=== PATIENT | female | born 1935 | race Caucasian/White ===

== ENCOUNTER → 2017-05-15 | Outpatient (CLI) | payer MEDICAID, MEDICARE, OTHER ==
--- NOTE | 2017-05-15 11:13 | RADIOLOGY REPORT (SQ) ---
EXAM DESCRIPTION: CT HEAD WITHOUT COMPLETED DATE/TIME: 05/15/2017 10:59 am REASON FOR STUDY: DIZZINESS AND GIDDINESS, REPEATED FALLS R42 DIZZINESS AND GIDDINESS R29.6 REPEAT ED FALLS COMPARISON: 09/03/2010 TECHNIQUE: Axial images acquired through the brain without intravenous contrast. Images reviewed wi th bone, brain and subdural windows. Additional sagittal and coronal reconstructions were generated. Images stored on PACS. All CT scanners at this facility use dose modulation, iterative reconstruction, and/or weight based d osing when appropriate to reduce radiation dose to as low as reasonably achievable (ALARA). [facility]: Dose Right [facility]: CareDose [facility]: Dose Right [facility]: Teradose 4D [facility]: 3TEN8 RADIATION DOSE: CT Rad equipment meets quality standard of care and radiation dose reduction techniq ues were employed. CTDIvol: 49.0 mGy. DLP: 783 mGy-cm.mGy. LIMITATIONS: None. FINDINGS: VENTRICLES: Prominent. CEREBRUM: No masses. No hemorrhage. No midline shift. Areas of low density in the white matter mos t likely due to chronic micro-vascular ischemic change. No evidence for acute infarction. CEREBELLUM: No masses. No hemorrhage. No alteration of density. No evidence for acute infarction. EXTRAAXIAL SPACES: Age-related involutional change. No fluid collections. No masses. ORBITS AND GLOBE: No intra- or extraconal masses. Normal contour of globe without masses. CALVARIUM: No fracture. PARANASAL SINUSES: No fluid or mucosal thickening. SOFT TISSUES: No mass or hematoma. OTHER: No other significant finding. IMPRESSION: CHRONIC CHANGES OF ATROPHY AND MICROVASCULAR ISCHEMIA. NO ACUTE PROCESS. EVIDENCE OF ACUTE STROKE: NO. TECHNICAL DOCUMENTATION: JOB ID: [id number] Quality ID # [id number]: Final reports with documentation of one or more dose reduction techniques (e.g., Au tomated exposure control, adjustment of the mA and/or kV according to patient size, use of iterative reconstruction technique) 2010 [employer]- All Rights Reserved Reading location - IP/workstation name: [email or web address]
== END ==
LOC: RAD 10:24
PROVIDERS: ATTEND Family Medicine Geriatric Medicine
DX: R42 Dizziness and giddiness (principal); R29.6 Repeated falls
CPT/HCPCS: 70450

== ENCOUNTER → 2017-05-25 | Outpatient (CLI) | payer MEDICARE, MEDICAID ==
--- NOTE | 2017-05-25 15:44 | RADIOLOGY REPORT (SQ) ---
EXAM DESCRIPTION: CAROTID DOPPLER COMPLETED DATE/TIME: 05/25/2017 2:11 pm REASON FOR STUDY: DIZZINESS R42 DIZZINESS AND GIDDINESS R29.6 REPEATED FALLS COMPARISON: MRA neck 09/03/2010 MRI brain 09/03/2010 CT brain 05/15/2017 TECHNIQUE: Grayscale ultrasound, Doppler velocity and spectra, and color Doppler images acquired of the extra-cranial carotid and vertebral arteries. Images stored on PACS. LIMITATIONS: None. FINDINGS: RIGHT CAROTID CCA Velocities: Within normal limits. ICA Velocities Peak systolic 0.56 m/s. End diastolic 0.16 m/s. Proximal ICA/CCA peak systolic ratio 1.7. Spectra normal. Minimal plaque without flow significant stenosis. LEFT CAROTID CCA Velocities: Within normal limits. ICA Velocities Peak systolic 0.73 m/s. End diastolic 0.21 m/s. Proximal ICA/CCA peak systolic ratio 1.4. Spectra normal. Minimal plaque without flow significant stenosis VERTEBRAL ARTERIES: Antegrade flow. Normal waveforms. SUBCLAVIAN ARTERIES: Not evaluated OTHER: No other significant finding. IMPRESSION: NO HEMODYNAMICALLY SIGNIFICANT STENOSIS AT THE CAROTID BIFURCATIONS. ANTEGRADE PULSATIL E VERTEBRAL ARTERY FLOW BILATERALLY. COMMENT: Quality ID #[id number]: Velocity criteria are extrapolated from the diameter data as defined by t he Society of Radiologists in Ultrasound Consensus Conference. Radiology 2003: 229; 340-346. TECHNICAL DOCUMENTATION: JOB ID: [id number] [employer]- All Rights Reserved Reading location - IP/workstation name: [email or web address]
== END ==
LOC: SP 12:44
PROVIDERS: ATTEND Family Medicine Geriatric Medicine
DX: R42 Dizziness and giddiness (principal); R29.6 Repeated falls
CPT/HCPCS: 93880

== ENCOUNTER → 2017-05-26 | Outpatient (CLI) | payer MEDICARE, MEDICAID | LOC: LAB 10:48 | PROVIDERS: ATTEND Family Medicine Geriatric Medicine | DX: Z53.8 Procedure and treatment not carried out for other reasons (principal) ==

== ENCOUNTER → 2017-05-26 | Outpatient (CLI) | payer MEDICARE, MEDICAID ==
[2017-05-26 11:29] LABS: ABSOLUTE EOSINOPHILS # (AUTO) 0.3 10^3/uL (0.0-0.6); ABSOLUTE LYMPHOCYTES (AUTO) 1.7 10^3/uL (0.5-4.7); ABSOLUTE MONOCYTES (AUTO) 0.4 10^3/uL (0.1-1.4); ABSOLUTE NEUT (AUTO) 4.6 10^3/uL (1.7-8.2); BASOPHILS % (AUTO) 0.5 % (0-2); EOSINOPHILS % (AUTO) 3.7 % (0-6); HEMATOCRIT 32.4 % (36.0-47.0); HEMOGLOBIN 10.2 g/dL (12.0-15.5); LYMPHOCYTES % (AUTO) 24.3 % (13-45); MEAN CORPUSCULAR HEMOGLOBIN 25.5 pg (27.0-33.4); MEAN CORPUSCULAR HGB CONC 31.6 g/dL (32.0-36.0); MEAN CORPUSCULAR VOLUME 81 fl (80-97); MONOCYTES % (AUTO) 5.5 % (3-13); PLATELET COUNT 233 10^3/uL (150-450); RED BLOOD COUNT 4.02 10^6/uL (3.72-5.28); RED CELL DISTRIBUTION WIDTH 18.7 % (11.5-14.0); TOTAL CELLS COUNTED % (AUTO) 100 %; WHITE BLOOD COUNT 6.9 10^3/uL (4.0-10.5)
[2017-05-26 11:53] LABS: ALANINE AMINOTRANSFERASE 17 U/L (9-52); ALBUMIN 3.9 g/dL (3.5-5.0); ALKALINE PHOSPHATASE 67 U/L (38-126); ANION GAP 14 (5-19); ASPARTATE AMINO TRANSFERASE 12 U/L (14-36); BILIRUBIN,DIRECT 0.2 mg/dL (0.0-0.4); BILIRUBIN,TOTAL 0.5 mg/dL (0.2-1.3); BLOOD UREA NITROGEN 17 mg/dL (7-20); CALCIUM 9.9 mg/dL (8.4-10.2); CARBON DIOXIDE 26 mmol/L (22-30); CHLORIDE 104 mmol/L (98-107); CHOLESTEROL 121.02 mg/dL (0-200); GLUCOSE 155 mg/dL (75-110); POTASSIUM 4.2 mmol/L (3.6-5.0); TOTAL PROTEIN 6.4 g/dL (6.3-8.2); TRIGLYCERIDES 204 mg/dL (<150)
[2017-05-26 12:04] LABS: DIRECT LDL 52 mg/dL (<100)
[2017-05-26 12:42] LABS: VLDL CHOLESTEROL 40.8 mg/dL (10-31)
[2017-05-27 11:40] LABS: CREATININE URINE 53.1 mg/dL (Not Estab.); MICROALBUMIN URINE 45.9 ug/mL (Not Estab.)
== END ==
LOC: LAB 10:39
PROVIDERS: ATTEND Family Medicine Geriatric Medicine
DX: E11.9 Type 2 diabetes mellitus without complications (principal); I10 Essential (primary) hypertension; E87.6 Hypokalemia; E55.9 Vitamin D deficiency, unspecified; E53.8 Deficiency of other specified B group vitamins
CPT/HCPCS: 36415; 80053; 80061; 82043; 82306; 82570; 82607; 83036; 84443; 85025

== ENCOUNTER 2017-08-17 07:15 | Inpatient (IN) | payer MEDICARE, MEDICAID ==
--- NOTE | 2017-08-17 07:27 | ER Document Report ---
ED General - General Stated Complaint: ABDOMINAL PAIN Time Seen by Provider: 08/17/17 07:26 Mode of Arrival: Medic Information source: Patient, Relative TRAVEL OUTSIDE OF THE [place] IN LAST 30 DAYS: No - HPI Notes: 81-year-old female with a past medical history of double bypass, CHF, diabetes, COPD, hypertension, asthma, anxiety, A. fib, hypothyroidism presents to the ED with complaints of left lower quadrant abdominal pain that started this morning and daughter states 2 weeks of anorexia, fatigue, nausea, diarrhea with shortness of breath. Daughters concerned about patient's mental status she feels that she is becoming "delusional". Denies fevers, chills, chest pain, palpitations, hematuria,blurred vision, double vision, loss of vision, speech changes, LH, dizziness, syncope, headaches, wheezing, ST, URI, neck pain, weakness, bowel or bladder dysfunction, saddle anesthesia, numbness or tingling in bilateral upper or lower extremities equally, muscle paralysis, weakness in bilateral upper or lower extremities equally or rash. Denies IV drug use. - Related Data Allergies/Adverse Reactions: Penicillins Allergy (Verified 09/03/10 14:42) Past Medical History - General Information source: Patient, Relative - Social History Smoking Status: Unknown if Ever Smoked Family History: Reviewed & Not Pertinent Review of Systems - Review of Systems Constitutional: See HPI EENT: No symptoms reported Cardiovascular: No symptoms reported Respiratory: No symptoms reported Gastrointestinal: See HPI Genitourinary: No symptoms reported Female Genitourinary: No symptoms reported Musculoskeletal: No symptoms reported Skin: No symptoms reported Hematologic/Lymphatic: No symptoms reported Neurological/Psychological: No symptoms reported Physical Exam - Vital signs Vitals: Temp 97.6 F 08/17/17 07:33 - Notes Notes: PHYSICAL EXAMINATION: GENERAL: Well-appearing, well-nourished and in no acute distress. HEAD: Atraumatic, normocephalic. EYES: Pupils equal round and reactive to light, extraocular movements intact, conjunctiva are normal. ENT: Nares patent, oropharynx clear without exudates. Moist mucous membranes. NECK: Normal range of motion, supple without lymphadenopathy LUNGS: Breath sounds clear to auscultation bilaterally and equal. No wheezes rales or rhonchi. HEART: Regular rate and rhythm without murmurs ABDOMEN: Soft, left lower quadrant tenderness on palpation, no rebound tenderness, nondistended abdomen. No guarding, no rebound. No masses appreciated. No CVA tenderness bilaterally Female : deferred Musculoskeletal: Normal range of motion, no pitting or edema. No cyanosis. NEUROLOGICAL: Cranial nerves grossly intact. Normal speech, normal gait. Normal sensory, motor exams. PERRLA, EOMI. Full motor and sensory function throughout. General Duty Nurse + 2 equal bilaterally in BUE. Tongue midline. No pronator drift. No ataxia. Neck with APROM. Raises eyebrows. Strength is 5 out of 5 in bilateral upper and lower extremities equally.Speaks in full sentences. No weakness on one side. Romberg gait steady able to walk straight line. Able to recall 5 objects. PSYCH: Normal mood, normal affect. SKIN: Warm, Dry, normal turgor, no rashes or lesions noted. Course - Re-evaluation Re-evalutation: 08/17/17 09:44 Chronically ill 81-year-old female is afebrile, who is slightly tachycardic presents for complaints of left lower quadrant abdominal pain and daughter's concern of some confusion along with anorexia, fatigue and lethargy. CBC negative for leukocytosis however does show anemia, CMP unremarkable, BNP 7740 and urine shows a pyelonephritis. Cardiac enzymes negative. Still awaiting CTA CT abdomen pelvis Dr. Piyush Arevalo, hospitalist consulted at 0930 for admission for acute exacerbation of CHF as well as pyelonephritis. CTA negative for pneumonia, PE, dissecting aortic aneurysm, CTA pelvis shows nodular liver with trace left upper free fluid with questionable cirrhosis, noted diverticulosis no diverticulitis. Questions and concerns answered by this provider, patient comfortable with admission and agreed with plan of care. - Vital Signs Vital signs: Temp Pulse Resp BP Pulse Ox 97.6 F 22 H 165/78 H 94 08/17/17 07:33 08/17/17 08:01 08/17/17 08:01 08/17/17 08:01 - Laboratory Result Diagrams: 08/17/17 07:53 08/17/17 07:53 Laboratory results interpreted by me: 08/17/17 08/17/17 08/17/17 07:53 07:53 07:53 Hgb 9.8 L Hct 32.5 L MCV 76 L MCH 22.9 L MCHC 30.2 L RDW 18.7 H PT 27.2 H APTT 85.5 H Glucose 139 H Direct Bilirubin 0.5 H NT-Pro-B Natriuret Pep Urine Protein Urine Nitrite Ur Leukocyte Esterase 08/17/17 08/17/17 07:53 08:30 Hgb Hct MCV MCH MCHC RDW PT APTT Glucose Direct Bilirubin NT-Pro-B Natriuret Pep 7740 H Urine Protein 100 H Urine Nitrite POSITIVE H Ur Leukocyte Esterase MODERATE H Discharge - Discharge Clinical Impression: Nodular hyperplasia of liver Acute exacerbation of CHF (congestive heart failure) Qualifiers: Heart failure type: unspecified Qualified Code(s): I50.9 - Heart failure, unspecified UTI (urinary tract infection) Qualifiers: Urinary tract infection type: acute pyelonephritis Qualified Code(s): N10 - Acute pyelonephritis Condition: Stable Disposition: ADMITTED INPATIENT Admitting Provider: Hospitalist - Dr. Piyush Arevalo Unit Admitted: Medical Floor
[2017-08-17 08:10] LABS: ABSOLUTE BASOPHILS # (AUTO) 0.1 10^3/uL (0.0-0.2); ABSOLUTE EOSINOPHILS # (AUTO) 0.1 10^3/uL (0.0-0.6); ABSOLUTE LYMPHOCYTES (AUTO) 1.3 10^3/uL (0.5-4.7); ABSOLUTE MONOCYTES (AUTO) 0.5 10^3/uL (0.1-1.4); ABSOLUTE NEUT (AUTO) 5.5 10^3/uL (1.7-8.2); BASOPHILS % (AUTO) 0.9 % (0-2); EOSINOPHILS % (AUTO) 1.4 % (0-6); HEMATOCRIT 32.5 % (36.0-47.0); HEMOGLOBIN 9.8 g/dL (12.0-15.5); LYMPHOCYTES % (AUTO) 17.3 % (13-45); MEAN CORPUSCULAR HEMOGLOBIN 22.9 pg (27.0-33.4); MEAN CORPUSCULAR HGB CONC 30.2 g/dL (32.0-36.0); MEAN CORPUSCULAR VOLUME 76 fl (80-97); MONOCYTES % (AUTO) 6.3 % (3-13); PLATELET COUNT 234 10^3/uL (150-450); RED BLOOD COUNT 4.29 10^6/uL (3.72-5.28); RED CELL DISTRIBUTION WIDTH 18.7 % (11.5-14.0); SEGMENTED NEUTROPHILS % (AUTO) 74.1 % (42-78); TOTAL CELLS COUNTED % (AUTO) 100 %; WHITE BLOOD COUNT 7.3 10^3/uL (4.0-10.5)
[2017-08-17 08:16] LABS: INTERNATIONAL RATION (INR) 2.39; PROTHROMBIN TIME 27.2 SEC (11.4-15.4)
[2017-08-17 08:18] LABS: PARTIAL THROMBOPLASTIN TIME 85.5 SEC (23.5-35.8)
[2017-08-17 08:41] LABS: ALANINE AMINOTRANSFERASE 18 U/L (9-52); ALBUMIN 3.8 g/dL (3.5-5.0); ALKALINE PHOSPHATASE 103 U/L (38-126); ANION GAP 11 (5-19); ASPARTATE AMINO TRANSFERASE 22 U/L (14-36); BILIRUBIN,DIRECT 0.5 mg/dL (0.0-0.4); BILIRUBIN,TOTAL 0.6 mg/dL (0.2-1.3); BLOOD UREA NITROGEN 18 mg/dL (7-20); CALCIUM 9.3 mg/dL (8.4-10.2); CARBON DIOXIDE 26 mmol/L (22-30); CHLORIDE 107 mmol/L (98-107); CREATINE KINASE 51 U/L (30-135); GLUCOSE 139 mg/dL (75-110); SODIUM 144.3 mmol/L (137-145); TOTAL PROTEIN 6.5 g/dL (6.3-8.2)
[2017-08-17 08:44] LABS: CREATINE KINASE MB 0.76 ng/mL (<4.55); NT PRO BNP 7740 pg/mL (<450)
[2017-08-17 08:45] LABS: TROPONIN I < 0.012 ng/mL
[2017-08-17 09:21] LABS: APPEARANCE,URINE SLIGHTLY-CLOUDY; BILIRUBIN,URINE NEGATIVE (NEGATIVE); COLOR,URINE YELLOW; GLUCOSE, URINE NEGATIVE (NEGATIVE); KETONES,URINE NEGATIVE (NEGATIVE); LEUKOCYTE ESTERASE,URINE MODERATE (NEGATIVE); NITRITE,URINE POSITIVE (NEGATIVE); PROTEIN,URINE 100 mg/dL (NEGATIVE); URINE SPECIFIC GRAVITY 1.025; UROBILINOGEN,URINE NEGATIVE mg/dL (<2.0)
[2017-08-17] MEDS ORDERED: FUROSEMIDE INJ/PF 40 MG/4 ML SDV IV ONE (09:37)
[2017-08-17] MEDS ORDERED: CIPROFLOXACIN HCL 500 MG TABLET PO ONE (09:42)
--- NOTE | 2017-08-17 09:51 | RADIOLOGY REPORT (SQ) ---
EXAM DESCRIPTION: CTA CHEST; CTA ABDOMEN/PELVIS W WO COMPLETED DATE/TIME: 08/17/2017 9:21 am; 08/17/2017 9:20 am REASON FOR STUDY: HR 110, +SOB, wells 6, +perc; sudden LLQ abd pain, anorexia, +nausea, COMPARISON: None. CONTRAST TYPE AND DOSE: contrast/concentration: Isovue 370.00 mg/ml; Total Contrast Delivered: 58.0 ml; Total Saline Delivered: 60.0 ml RENAL FUNCTION: Creatinine 0.8 TECHNIQUE: CT angio of the chest performed using helical scanning technique with dynamic intravenous contrast injection. Images reviewed with lung, soft tissue and bone windows. Reconstructed coronal and sagittal MPR images reviewed. All images stored on PACS. CT angio of the abdomen and pelvis performed with intravenous and without oral contrastusing helical scanning technique with dynamic intravenous contrast injection. Images reviewed with lung, soft tiss ue and bone windows. Reconstructed coronal and sagittal MPR images reviewed. Delayed images for faby luation of the urinary system also acquired and evaluated. All images stored on PACS. All CT scanners at this facility use dose modulation, iterative reconstruction, and/or weight based d osing when appropriate to reduce radiation dose to as low as reasonably achievable (ALARA). [facility]: Dose Right [facility]: CareDose [facility]: Dose Right [facility]: Teradose 4D [facility]: [employer] RADIATION DOSE: CT Rad equipment meets quality standard of care and radiation dose reduction techniq ues were employed. CTDIvol: 19.3 - 25.5 mGy. DLP: 2328 mGy-cm. . LIMITATIONS: None. FINDINGS: CHEST: LUNGS AND PLEURA: No opacities, nodules, masses. No pneumothorax. No effusions. HILAR AND MEDIASTINAL STRUCTURES: No identified masses or abnormal nodes. HEART AND VASCULAR STRUCTURES: No thoracic aortic aneurysm or dissection. No acute pulmonary emboli. No pericardial effusion. Moderate to marked cardiomegaly. HARDWARE: Old sternotomy for CABG. THYROID AND OTHER SOFT TISSUES: No masses. No adenopathy. BONES: No significant finding. OTHER: No other significant finding. ABDOMEN AND PELVIS: LIVER: Nodular contour, atrophy right lobe liver nerve compatible with cirrhosis. No focal nodules. SPLEEN: Normal size. Trace left upper quadrant subphrenic fluid PANCREAS: No masses. No significant calcifications. No adjacent inflammation or peripancreatic fluid collections. Pancreatic duct not dilated. GALLBLADDER: Stones in the gallbladder without gallbladder wall thickening or pericholecystic fluid. ADRENAL GLANDS: No significant masses or asymmetry. RIGHT KIDNEY AND URETER: No solid masses. 4.5 cm cyst right mid-pole kidney No significant calcifica tion. No hydronephrosis or hydroureter. LEFT KIDNEY AND URETER: No solid masses. No significant calcification. No hydronephrosis or hydrouret er. AORTA AND VESSELS: No abdominal aortic aneurysm. No dissection. Very heavily calcified origins of th e superior mesenteric artery and bilateral renal arteries, at least moderate, 50 to 75% stenosis is p resent in these vessels. RETROPERITONEUM: No retroperitoneal adenopathy, hemorrhage or masses. BOWEL AND PERITONEAL CAVITY: Trace left upper quadrant free fluid. No free intraperitoneal air. No CT evidence of bowel obstruction. Descending and sigmoid colon diverticuli are present without CT si gns of acute diverticulitis. APPENDIX: Not identified. No right lower quadrant inflammatory change ABDOMINAL WALL: No masses. No hernias. PELVIS: Streak artifact from right total hip replacement. Trace pelvic cul-de-sac fluid. Small post menopausal female pelvic organs. Bladder unremarkable. BONES: Diffuse degenerative disc changes throughout the lumbar spine OTHER: There is soft tissue stranding and thickening of the skin over the inferior aspect, abdominal wall panniculus IMPRESSION: No CT angio evidence of thoracic or abdominal aortic dissection No CTA evidence of acute pulmonary emboli Colonic diverticulosis without CT signs of acute diverticulitis Nodular liver with trace left upper quadrant free fluid, question cirrhosis TECHNICAL DOCUMENTATION: JOB ID: [id number] Quality ID # [id number]: Final reports with documentation of one or more dose reduction techniques (e.g., Au tomated exposure control, adjustment of the mA and/or kV according to patient size, use of iterative reconstruction technique) 2010 [employer]- All Rights Reserved Reading location - IP/workstation name: [email or web address]
--- NOTE | 2017-08-17 10:47 | PDOC H&P ---
History of Present Illness Admission Date/PCP: 08/17/17 09:52 MARY BATISTA MD History of Present Illness: MOON RIDER is a 81 year old female patient with multiple comorbidities including CHF, A. fib, hypothyroidism, hypertension, hyperlipidemia, COPD, type 2 diabetes mellitus, and anxiety depression, obesity and coronary artery disease status post double CABG, presents with chief complaint of shortness of breath and left lower quadrant abdominal pain that started this morning and her daughter also complained patient has auditory hallucinations," she says she heard water dripping and birds singing". Patient denies fever, palpitation, diaphoresis, cough, chest pain, nausea, vomiting, diarrhea or urinary complaints. She has orthopnea of 3 pillows but denies paroxysmal nocturnal dyspnea. No dizziness, blurring of vision, headache or seizure activity. Past Medical History Cardiac Medical History: Reports: Atrial Fibrillation, Congestive Heart Failure , Hyperlipidema, Hypertension Pulmonary Medical History: Reports: Asthma, Chronic Obstructive Pulmonary Disease (COPD) Endocrine Medical History: Reports: Diabetes Mellitus Type 2 Psychiatric Medical History: Reports: Depression - anxiety Past Surgical History Past Surgical History: Reports: Cardiac Catheterization - double bipass, Other - Coronary artery bypass graft Social History Smoking Status: Never Smoker Frequency of Alcohol Use: None Hx Recreational Drug Use: No Drugs: None - Advance Directive Resuscitation Status: Full Code Family History Family History: Reviewed & Not Pertinent, DM Parental Family History Reviewed: Yes Children Family History Reviewed: Yes Sibling(s) Family History Reviewed.: Yes Medication/Allergy Allergies/Adverse Reactions: Penicillins Allergy (Verified 09/03/10 14:42) Review of Systems Constitutional: PRESENT: as per HPI Eyes: PRESENT: as per HPI Nose, Mouth, and Throat: PRESENT: as per HPI Cardiovascular: PRESENT: as per HPI Respiratory: PRESENT: as per HPI Gastrointestinal: PRESENT: as per HPI Neurological: PRESENT: as per HPI Psychiatric: PRESENT: as per HPI Physical Exam Vital Signs: Temp Pulse Resp BP Pulse Ox 97.6 F 22 H 165/78 H 94 08/17/17 07:33 08/17/17 08:01 08/17/17 08:01 08/17/17 08:01 General appearance: PRESENT: no acute distress Head exam: PRESENT: atraumatic, normocephalic Eye exam: PRESENT: conjunctiva pink Mouth exam: PRESENT: moist Neck exam: ABSENT: carotid bruit, JVD, lymphadenopathy, thyromegaly Respiratory exam: PRESENT: clear to auscultation molly. ABSENT: rales, rhonchi, wheezes Cardiovascular exam: PRESENT: irregular rhythm GI/Abdominal exam: PRESENT: other - Obese Extremities exam: PRESENT: +2 edema Neurological exam: PRESENT: alert, awake, oriented to time, oriented to situation Psychiatric exam: PRESENT: normal mood Results Impressions: Abdomen/Pelvis CTA 08/17/17 07:49 IMPRESSION: No CT angio evidence of thoracic or abdominal aortic dissection No CTA evidence of acute pulmonary emboli Colonic diverticulosis without CT signs of acute diverticulitis Nodular liver with trace left upper quadrant free fluid, question cirrhosis Chest/Abdomen CTA 08/17/17 07:49 IMPRESSION: No CT angio evidence of thoracic or abdominal aortic dissection No CTA evidence of acute pulmonary emboli Colonic diverticulosis without CT signs of acute diverticulitis Nodular liver with trace left upper quadrant free fluid, question cirrhosis Assessment & Plan - Diagnosis (1) Acute on chronic systolic congestive heart failure, NYHA class 2 Is this a current diagnosis for this admission?: Yes Plan: Patient has been started on Lasix, lisinopril, Coreg. (2) Complicated UTI (urinary tract infection) Is this a current diagnosis for this admission?: Yes Plan: Patient has been started on Levaquin. (3) COPD (chronic obstructive pulmonary disease) Qualifiers: Emphysema type: unspecified Is this a current diagnosis for this admission?: Yes Plan: His been started on as needed bronchodilator and supplemental oxygen. (4) Coronary artery disease Qualifiers: Coronary Disease-Associated Artery/Lesion type: [place] artery Is this a current diagnosis for this admission?: Yes Plan: Currently patient does not have chest pain. (5) A-fib Is this a current diagnosis for this admission?: Yes Plan: Rate controlled. We will continue her anticoagulation. (6) Type 2 diabetes mellitus Is this a current diagnosis for this admission?: Yes Plan: Started on sliding scale. (7) Hypothyroidism (acquired) Is this a current diagnosis for this admission?: Yes Plan: We will continue her Synthroid. - Time Time Spent: 30 to 50 Minutes - Inpatient Certification Medical Necessity: Need Close Monitoring Due to Risk of Patient Decompensation, Need for IV Antibiotics
[2017-08-17] MEDS ORDERED: DEXTROSE 50%-WATER 25 GM/50 ML DISP.SYRIN IV PRN ×2 (10:48)
[2017-08-17] MEDS ORDERED: DEXTROSE 40% GEL 15 GM TUBE PO PRN ×2 (10:48)
[2017-08-17] MEDS ORDERED: GLUCAGON,HUMAN RECOMB 1 MG INJ IM PRN (10:48)
[2017-08-17] MEDS ORDERED: IPRATROPIUM/ALBUTEROL 0.5-2.5 MG/3 ML AMPUL NEB PRN (10:51)
[2017-08-17] MEDS ORDERED: ENOXAPARIN SODIUM INJ 40 MG/0.4 ML DISP.SYRIN SUBCUT ONE (11:30)
[2017-08-17] MEDS: LEVOFLOXACIN 500 MG/D5W RTU 500 MG/100 ML RTUPB IV SCH (11:46)
[2017-08-17] MEDS: IPRATROPIUM/ALBUTEROL 0.5-2.5 MG/3 ML AMPUL NEB SCH ×2 (13:30→19:55)
--- NOTE | 2017-08-17 17:20 | Physician Advisory Note ---
Physician Advisor ProgressNote .: Pursuant to the plan for [facility], I have reviewed the medical record for this patient. Physician Advisor Statement: Nice documentation of Ac on Chr systolic CHF, w/orthopnea, SOB, BLE edema (w/ CT showing cardiomegaly), & of the evidence of acute changes in mental status (hallucinations , delusions per family, which aren't her baseline). Please consider documenting, if you agree: 1. Type AMS: - "delirium due to metabolic encephalopathy due to " [UTI, ...] ?, or - "metabolic encephalopathy due to " ?, or - dementia alone?, or ...? 2. Medical necessity (r.e. status): see below Status: CHF exac is typically "Obs until proven otherwise". So is encephalopathy - & UTI - because a significant # of those w/these dx.s can often turn around & be just fine for d/c the next day after initial tx. Please either (A) document explicitly the reasons you feel strongly that THIS pt at THIS time is severely ill & will require at least 2 nights in hospital, or (B) make pt Obs today, & then re-eval status 08/18. -> If on 08/18, pt not clinically safe for d/c home, but continues to have significant continuing severity of illness/intensity of service/ongoing needs, please then document continued concerns etc & consider Inpatient status. More info/explanation, to read when not overly busy: Ex of (B), day after arrival: persistent/recurrent tachycardia/tachypnea, SOB > baseline, mental status or breathing still not back to baseline, new worrisome s/s, ....). Ex of (A): A 300# pt w/CHF exac who shows up with edema to the umbilicus despite diuretics at home, whom you KNOW there is just no way they'll be able to get out sufficient urine for safe d/c in 1-2 days: that sort of case, w/ reasoning documented, can be appropriate for Inpt initially. Hx so far: Pt is 81yo w/CAD, chr syst CHF, chr Afib, COPD, asthma, DM-2, HTN, hypothyroidism, & anemia, acute UTI, nodular liver that could indicate cirrhosis. She remains persistently tachycardic today so far, w/continued intermittent tachypnea. INR is 2.39 on Pradaxa. Thanks! CK
[2017-08-17] MEDS: FUROSEMIDE INJ/PF 40 MG/4 ML SDV IV SCH (21:30)
[2017-08-17] MEDS: CARVEDILOL 12.5 MG TABLET PO SCH (21:30)
[2017-08-18] MEDS: IPRATROPIUM/ALBUTEROL 0.5-2.5 MG/3 ML AMPUL NEB SCH ×4 (01:32→19:42)
[2017-08-18] MEDS: LANSOPRAZOLE 30 MG TAB.RAP.DR PO SCH (05:34)
[2017-08-18 07:52] LABS: ANION GAP 14 (5-19); BLOOD UREA NITROGEN 15 mg/dL (7-20); CALCIUM 9.5 mg/dL (8.4-10.2); CARBON DIOXIDE 27 mmol/L (22-30); CHLORIDE 102 mmol/L (98-107); GLUCOSE 116 mg/dL (75-110); SODIUM 143.4 mmol/L (137-145)
[2017-08-18] MEDS: CARVEDILOL 12.5 MG TABLET PO SCH ×2 (09:40→23:37)
[2017-08-18] MEDS: FUROSEMIDE INJ/PF 40 MG/4 ML SDV IV SCH ×2 (09:40→23:35)
[2017-08-18] MEDS ORDERED: ENOXAPARIN SODIUM INJ 40 MG/0.4 ML DISP.SYRIN SUBCUT SCH (10:00)
[2017-08-18] MEDS ORDERED: LISINOPRIL 5 MG TABLET PO SCH (10:00)
[2017-08-18] MEDS: LEVOFLOXACIN 500 MG/D5W RTU 500 MG/100 ML RTUPB IV SCH (11:32)
[2017-08-18] MEDS: INSULIN LISPRO 100 UNIT/ML 3 ML VIAL SUBCUT PRN ×2 (11:32→16:26)
--- NOTE | 2017-08-18 14:33 | PDOC PROGRESS REPORT ---
Subjective Progress Note for:: 08/18/17 Subjective:: I seen patient sitting up by the bedside. She is awake alert oriented. She claims her shortness of breath relatively subsided but she complains of dysphagia. I requested barium swallow. Patient is also eager to go home since coming Wednesday his birthday of her granddaughter. Reason For Visit: HEART FAILURE Physical Exam Vital Signs: Temp Pulse Resp BP Pulse Ox 98.4 F 98 16 150/89 H 99 08/18/17 07:50 08/18/17 14:05 08/18/17 14:05 08/18/17 07:50 08/18/17 14:05 Intake & Output 08/17/17 08/18/17 08/19/17 06:59 06:59 06:59 Intake Total 330 Balance 330 Weight 77.4 kg General appearance: PRESENT: mild distress Head exam: PRESENT: atraumatic Eye exam: PRESENT: conjunctiva pink Mouth exam: PRESENT: moist Neck exam: ABSENT: carotid bruit, JVD, lymphadenopathy, thyromegaly Respiratory exam: PRESENT: clear to auscultation molly, decreased breath sounds. ABSENT: rales, rhonchi, wheezes Cardiovascular exam: PRESENT: RRR. ABSENT: diastolic murmur, rubs, systolic murmur GI/Abdominal exam: PRESENT: normal bowel sounds, soft. ABSENT: distended, guarding, mass, organolmegaly, rebound, tenderness Neurological exam: PRESENT: alert, awake, oriented to time, oriented to situation Results Laboratory Results: 08/18/17 06:10 08/18/17 08/18/17 06:10 06:10 Sodium 143.4 Potassium 4.0 D Chloride 102 Carbon Dioxide 27 Anion Gap 14 BUN 15 Creatinine 0.70 Est GFR ( Amer) > 60 Est GFR (Non-Af Amer) > 60 Glucose 116 H Calcium 9.5 Magnesium 1.9 TSH 1.05 Impressions: Abdomen/Pelvis CTA 08/17/17 07:49 IMPRESSION: No CT angio evidence of thoracic or abdominal aortic dissection No CTA evidence of acute pulmonary emboli Colonic diverticulosis without CT signs of acute diverticulitis Nodular liver with trace left upper quadrant free fluid, question cirrhosis Chest/Abdomen CTA 08/17/17 07:49 IMPRESSION: No CT angio evidence of thoracic or abdominal aortic dissection No CTA evidence of acute pulmonary emboli Colonic diverticulosis without CT signs of acute diverticulitis Nodular liver with trace left upper quadrant free fluid, question cirrhosis Assessment & Plan - Diagnosis (1) Acute on chronic systolic congestive heart failure, NYHA class 2 Is this a current diagnosis for this admission?: Yes Plan: At admission patient has bilateral pitting edema, orthopnea of 3 pillows and her BNP is 7700. I will continue Lasix lisinopril and Coreg. (2) Complicated UTI (urinary tract infection) Is this a current diagnosis for this admission?: Yes Plan: Patient has been started on Levaquin. Since she has allergic to penicillin. (3) COPD (chronic obstructive pulmonary disease) Qualifiers: Emphysema type: unspecified Is this a current diagnosis for this admission?: Yes Plan: His been started on as needed bronchodilator and supplemental oxygen. (4) Coronary artery disease Qualifiers: Coronary Disease-Associated Artery/Lesion type: [place] artery Is this a current diagnosis for this admission?: Yes Plan: Currently patient does not have chest pain. (5) A-fib Is this a current diagnosis for this admission?: Yes Plan: Rate controlled. We will continue her anticoagulation. (6) Type 2 diabetes mellitus Is this a current diagnosis for this admission?: Yes Plan: Started on sliding scale. (7) Hypothyroidism (acquired) Is this a current diagnosis for this admission?: Yes Plan: We will continue her Synthroid.
[2017-08-18] MEDS ORDERED: TRAMADOL HCL 50 MG TABLET PO PRN (14:34)
[2017-08-18] MEDS ORDERED: (PENDING PHARMACY ID) (Carboxymethylcellulose Sodium [Refresh Tears] 1 DROP) OU PRN (14:34)
[2017-08-18] MEDS ORDERED: (PENDING PHARMACY ID) (Ondansetron Hcl [Zofran 4 Mg Tablet] 4 MG) PO PRN (14:34)
[2017-08-18] MEDS ORDERED: ONDANSETRON 4 MG TAB.RAPDIS PO PRN (15:39)
[2017-08-18] MEDS ORDERED: CARBOXYMETHYLCELLULOSE SOD 0.5% 0.4 ML DROPERETTE OU PRN (15:39)
[2017-08-18] MEDS ORDERED: SERTRALINE HCL 50 MG TABLET PO ONE (15:45)
[2017-08-18] MEDS ORDERED: POTASSIUM CHLORIDE 10 MEQ CAPSULE.ER PO ONE (16:00)
[2017-08-18] MEDS: METFORMIN HCL 500 MG TABLET PO SCH (16:23)
[2017-08-18] MEDS ORDERED: METOPROLOL TARTRATE 50 MG TABLET PO SCH (22:00)
[2017-08-18] MEDS: DABIGATRAN ETEXILATE 150 MG CAPSULE PO SCH (23:37)
[2017-08-18] MEDS: ATORVASTATIN CALCIUM 10 MG TABLET PO SCH (23:39)
[2017-08-18] MEDS: BIMATOPROST 0.01% OPH SOLN 2.5 ML/BOTTLE OU SCH (23:40)
[2017-08-19] MEDS: IPRATROPIUM/ALBUTEROL 0.5-2.5 MG/3 ML AMPUL NEB SCH ×4 (02:14→19:49)
[2017-08-19] MEDS: LANSOPRAZOLE 30 MG TAB.RAP.DR PO SCH (06:41)
[2017-08-19] MEDS: INSULIN LISPRO 100 UNIT/ML 3 ML VIAL SUBCUT PRN ×3 (06:41→12:41)
[2017-08-19] MEDS: LEVOTHYROXINE SODIUM 0.05 MG TABLET PO SCH (06:41)
[2017-08-19] MEDS: METFORMIN HCL 500 MG TABLET PO SCH ×2 (08:00→16:17)
[2017-08-19] MEDS: FUROSEMIDE 40 MG TABLET PO SCH (09:04)
[2017-08-19] MEDS: SERTRALINE HCL 50 MG TABLET PO SCH (09:04)
[2017-08-19] MEDS: POTASSIUM CHLORIDE 10 MEQ CAPSULE.ER PO SCH (09:04)
[2017-08-19] MEDS: LISINOPRIL 10 MG TABLET PO SCH (09:05)
[2017-08-19] MEDS: CARVEDILOL 12.5 MG TABLET PO SCH ×2 (09:05→22:00)
[2017-08-19] MEDS: ASPIRIN 81 MG TABLET, ENT COATED PO SCH (09:05)
[2017-08-19] MEDS: TIOTROPIUM BROMIDE DPI 5 CAP/KIT (18 MCG/CAP) IH SCH (09:06)
[2017-08-19] MEDS: INSULIN GLARGINE,HUM.REC.ANLOG 300 UNIT/3 ML INSULN.PEN SUBCUT SCH (09:12)
[2017-08-19] MEDS: DABIGATRAN ETEXILATE 150 MG CAPSULE PO SCH ×2 (09:13→22:00)
[2017-08-19] MEDS: FUROSEMIDE INJ/PF 40 MG/4 ML SDV IV SCH ×2 (09:19→21:48)
--- NOTE | 2017-08-19 09:22 | RADIOLOGY REPORT (SQ) ---
EXAM DESCRIPTION: BARIUM SWALLOW ESOPHAGUS COMPLETED DATE/TIME: 08/19/2017 8:52 am REASON FOR STUDY: Dysphagia COMPARISON: CT angio chest 08/17/2017 TECHNIQUE: Under fluoroscopic guidance, patient ingested effervescent granules followed by thick and thin barium. Fluoroscopic spot images and routine radiographic images acquired and stored on PACS. 12 MM BARIUM TABLET GIVEN: Yes 12 mm barium tablet tongue up at the GE junction for 2 minutes before dropping through into the stoma ch fundus. This reproduced the patient's symptoms. LIMITATIONS: None. FLUOROSCOPY TIME: FLUORO TIME: 2 minutes 19 series of digital images saved to PACS. FINDINGS: NEUROMUSCULAR COORDINATION OF SWALLOW: Normal. No aspiration. ESOPHAGEAL MOTILITY: Prominent tertiary contractions of the esophagus. Disorganized primary strippin g wave ESOPHAGEAL MUCOSA: Normal mucosa without masses or ulceration. However, there is mild distal esophag eal luminal narrowing just above a small hiatal hernia. GASTRO-ESOPHAGEAL JUNCTION: Tiny sliding hiatal hernia. Unprovoked gastroesophageal reflux to the ce rvical esophagus NON-GI TRACT STRUCTURES: Old sternotomy for CABG OTHER: No other significant finding. IMPRESSION: Disorganized peristalsis with prominent tertiary contractions Small hiatal hernia with unprovoked gastroesophageal reflux to the cervical esophagus Smooth short segment of distal esophageal narrowing, impedes passage of the 12 mm barium tablet for 2 minutes. This reproduced the patient's symptoms. COMMENT: Quality ID [id number]: Final reports for procedures using fluoroscopy that document radiation exp osure indices, or exposure time and number of fluorographic images (if radiation exposure indices are not available) TECHNICAL DOCUMENTATION: JOB ID: [id number] [employer]- All Rights Reserved Reading location - IP/workstation name: [email or web address]
[2017-08-19] MEDS ORDERED: (PENDING PHARMACY ID) (Potassium Chloride [Klor-Con M20] 20 MEQ) PO SCH (10:00)
[2017-08-19] MEDS ORDERED: (PENDING PHARMACY ID) (Pravastatin Sodium [Pravachol] 40 MG) PO SCH (10:00)
--- NOTE | 2017-08-19 10:38 | PDOC PROGRESS REPORT ---
Subjective Progress Note for:: 08/19/17 Subjective:: I seen patient sitting up by the bedside. She is awake alert and oriented. She is not in pain or distress. For her dysphagia yesterday I requested a barium swallow and it was reported that she has smooth short segment of distal esophageal narrowing. For the dysphagia I offered her evaluation by boston cutter but she declined. Her blood culture grew gram-positive cocci. Identification and sensitivities pending. Her urine cultures positive for E. coli which is pansensitive and patient is already on Levaquin. Reason For Visit: HEART FAILURE Physical Exam Vital Signs: Temp Pulse Resp BP Pulse Ox 98.9 F 94 21 H 133/79 H 95 08/19/17 08:20 08/19/17 08:20 08/19/17 08:20 08/19/17 08:20 08/19/17 08:20 Intake & Output 08/18/17 08/19/17 08/20/17 06:59 06:59 06:59 Intake Total 330 1179 Balance 330 1179 Weight 77.4 kg 77.7 kg Results Laboratory Results: 08/18/17 06:10 Impressions: Abdomen/Pelvis CTA 08/17/17 07:49 IMPRESSION: No CT angio evidence of thoracic or abdominal aortic dissection No CTA evidence of acute pulmonary emboli Colonic diverticulosis without CT signs of acute diverticulitis Nodular liver with trace left upper quadrant free fluid, question cirrhosis Chest/Abdomen CTA 08/17/17 07:49 IMPRESSION: No CT angio evidence of thoracic or abdominal aortic dissection No CTA evidence of acute pulmonary emboli Colonic diverticulosis without CT signs of acute diverticulitis Nodular liver with trace left upper quadrant free fluid, question cirrhosis Esophagus X-Ray 08/19/17 00:00 IMPRESSION: Disorganized peristalsis with prominent tertiary contractions Small hiatal hernia with unprovoked gastroesophageal reflux to the cervical esophagus Smooth short segment of distal esophageal narrowing, impedes passage of the 12 mm barium tablet for 2 minutes. This reproduced the patient's symptoms. Assessment & Plan - Diagnosis (1) Acute on chronic systolic congestive heart failure, NYHA class 2 Is this a current diagnosis for this admission?: Yes Plan: Her shortness of breath is improving (2) Complicated UTI (urinary tract infection) Is this a current diagnosis for this admission?: Yes Plan: Urine culture is positive for E. coli which is pansensitive and patient is already on Levaquin. (3) COPD (chronic obstructive pulmonary disease) Qualifiers: Emphysema type: unspecified Is this a current diagnosis for this admission?: Yes Plan: Continue current regimen (4) Coronary artery disease Qualifiers: Coronary Disease-Associated Artery/Lesion type: hoh artery Is this a current diagnosis for this admission?: Yes Plan: Currently patient does not have chest pain. (5) A-fib Is this a current diagnosis for this admission?: Yes Plan: Rate controlled. We will continue her anticoagulation. (6) Type 2 diabetes mellitus Is this a current diagnosis for this admission?: Yes Plan: Started on sliding scale. (7) Hypothyroidism (acquired) Is this a current diagnosis for this admission?: Yes Plan: We will continue her Synthroid.
[2017-08-19] MEDS: LEVOFLOXACIN 500 MG/D5W RTU 500 MG/100 ML RTUPB IV SCH (12:27)
[2017-08-19] MEDS: ATORVASTATIN CALCIUM 10 MG TABLET PO SCH (22:00)
[2017-08-19] MEDS: BIMATOPROST 0.01% OPH SOLN 2.5 ML/BOTTLE OU SCH (22:00)
[2017-08-19] MEDS: ACETAMINOPHEN 325 MG TABLET PO PRN (22:15)
[2017-08-20] MEDS: IPRATROPIUM/ALBUTEROL 0.5-2.5 MG/3 ML AMPUL NEB SCH ×2 (02:13→08:29)
[2017-08-20] MEDS: LEVOTHYROXINE SODIUM 0.05 MG TABLET PO SCH (05:35)
[2017-08-20] MEDS: LANSOPRAZOLE 30 MG TAB.RAP.DR PO SCH (05:35)
[2017-08-20] MEDS: ACETAMINOPHEN 325 MG TABLET PO PRN (05:36)
[2017-08-20] MEDS: METFORMIN HCL 500 MG TABLET PO SCH (09:29)
--- NOTE | 2017-08-20 10:16 | PDOC DISCHARGE SUMMARY ---
General - Admit/Disc Date/PCP Admission Date/Primary Care Provider: 08/17/17 09:52 MARY BATISTA MD Discharge Date: 08/20/17 - Discharge Diagnosis (1) Acute on chronic systolic congestive heart failure, NYHA class 2 Is this a current diagnosis for this admission?: Yes (2) Complicated UTI (urinary tract infection) Is this a current diagnosis for this admission?: Yes (3) COPD (chronic obstructive pulmonary disease) Is this a current diagnosis for this admission?: Yes (4) Coronary artery disease Is this a current diagnosis for this admission?: Yes (5) A-fib Is this a current diagnosis for this admission?: Yes (6) Type 2 diabetes mellitus Is this a current diagnosis for this admission?: Yes (7) Hypothyroidism (acquired) Is this a current diagnosis for this admission?: Yes - Additional Information Resuscitation Status: Full Code Discharge Diet: Diabetic Discharge Activity: Activity As Tolerated, Balance Activity w/Rest Prescriptions: Carvedilol [Coreg 12.5 mg Tablet] 12.5 mg PO Q12 #60 tablet Levofloxacin [Levaquin 250 mg Tablet] 250 mg PO DAILY #4 tablet Home Medications: Albuterol Sulfate [Proair HFA Inhalation Aerosol 8.5 gm MDI] 2 puff IH Q6HP PRN 08/17/17 Aspirin [Ecotrin 81 mg EC Tablet] 81 mg PO DAILY 08/17/17 Bimatoprost [Lumigan 0.01% Oph Soln 2.5 ml/Bottle] 1 drop OU QHS 08/17/17 Carboxymethylcellulose Sodium [Refresh Tears] 1 drop OU DAILYP PRN 08/17/17 Dabigatran Etexilate Mesylate [Pradaxa] 150 mg PO Q12 08/17/17 Ergocalciferol (Vitamin D2) [Drisdol 50,000 unit (1.25MG) Capsule] 50,000 unit PO CLARK@1000 08/17/17 Esomeprazole Magnesium [Nexium] 40 mg PO DAILY 08/17/17 Furosemide [Lasix 40 mg Tablet] 40 mg PO DAILY 08/17/17 Insulin Glargine,Hum.rec.anlog [Lantus Insulin 100 Unit/mL] 40 units SQ DAILY Levothyroxine Sodium [Synthroid 0.05 mg Tablet] 0.05 mg PO Q6AM 08/17/17 Lisinopril [Prinivil 10 mg Tablet] 10 mg PO DAILY 08/17/17 Magnesium Oxide [Mag-Ox 400 mg Tablet] 400 mg PO Q12 08/17/17 Metformin HCl [Glucophage] 1,000 mg PO BIDBS 08/17/17 Ondansetron HCl [Zofran 4 mg Tablet] 4 mg PO Q8HP PRN 08/17/17 Potassium Chloride [Klor-Con M20] 20 meq PO DAILY 08/17/17 Pravastatin Sodium [Pravachol] 40 mg PO DAILY 08/17/17 Sertraline HCl [Zoloft] 100 mg PO DAILY 08/17/17 Tiotropium [place] [Spiriva Handihaler 5 Cap/Kit (18 Mcg/Cap)] 1 puff IH DAILY 08/17/17 Tramadol HCl [Ultram 50 mg Tablet] 50 mg PO Q8HP PRN 08/17/17 Carvedilol [Coreg 12.5 mg Tablet] 12.5 mg PO Q12 #60 tablet 08/19/17 Levofloxacin [Levaquin 250 mg Tablet] 250 mg PO DAILY #4 tablet 08/20/17 History of Present Illness History of Present Illness: MOON RIDER is a 81 year old female patient with multiple comorbidities including CHF, A. fib, hypothyroidism, hypertension, hyperlipidemia, COPD, type 2 diabetes mellitus, and anxiety depression, obesity and coronary artery disease status post double CABG, presents with chief complaint of shortness of breath and left lower quadrant abdominal pain that started this morning and her daughter also complained patient has auditory hallucinations," she says she heard water dripping and birds singing". Patient denies fever, palpitation, diaphoresis, cough, chest pain, nausea, vomiting, diarrhea or urinary complaints. She has orthopnea of 3 pillows but denies paroxysmal nocturnal dyspnea. No dizziness, blurring of vision, headache or seizure activity. Hospital Course Hospital Course: This is 81 years old female patient admitted with chief complaint of shortness of breath secondary to acute on chronic congestive heart failure exacerbation. Patient has been managed with IV Lasix and also will continue her home cardioprotective medications including lisinopril and carvedilol. Patient also has been on supplemental oxygen. Her urine culture grew E. coli and for which patient has been managed with Levaquin since she is allergic to penicillin. Patient also has been complaining of dysphagia for which barium swallow was requested and it revealed narrowing in the distal portion of the esophagus and I offered her evaluation by law secretary but she declined. Otherwise her hospital course is smooth and uneventful. This morning I seen patient sitting up in bed, awake alert oriented. She is not in pain or distress. Her labs are within normal limits. I will discharge patient in stable condition. I will continue all her home medication and I will add for her Levaquin 250 mg p.o. daily for 4 days. Physical Exam Vital Signs: Temp Pulse Resp BP Pulse Ox 99.2 F 92 18 124/57 L 97 08/20/17 08:00 08/20/17 08:00 08/20/17 08:00 08/20/17 08:00 08/20/17 08:00 Intake & Output 08/19/17 08/20/17 08/21/17 06:59 06:59 06:59 Intake Total 1179 1166 Balance 1179 1166 Weight 77.7 kg 77.9 kg General appearance: PRESENT: no acute distress Head exam: PRESENT: atraumatic, normocephalic Eye exam: PRESENT: conjunctiva pink Mouth exam: PRESENT: moist Neck exam: ABSENT: carotid bruit, JVD, lymphadenopathy, thyromegaly Respiratory exam: PRESENT: clear to auscultation molly. ABSENT: rales, rhonchi, wheezes Cardiovascular exam: PRESENT: RRR. ABSENT: diastolic murmur, rubs, systolic murmur GI/Abdominal exam: PRESENT: normal bowel sounds, soft. ABSENT: distended, guarding, mass, organolmegaly, rebound, tenderness Neurological exam: PRESENT: alert, awake Psychiatric exam: PRESENT: normal mood Results Laboratory Results: 08/18/17 06:10 Impressions: Abdomen/Pelvis CTA 08/17/17 07:49 IMPRESSION: No CT angio evidence of thoracic or abdominal aortic dissection No CTA evidence of acute pulmonary emboli Colonic diverticulosis without CT signs of acute diverticulitis Nodular liver with trace left upper quadrant free fluid, question cirrhosis Chest/Abdomen CTA 08/17/17 07:49 IMPRESSION: No CT angio evidence of thoracic or abdominal aortic dissection No CTA evidence of acute pulmonary emboli Colonic diverticulosis without CT signs of acute diverticulitis Nodular liver with trace left upper quadrant free fluid, question cirrhosis Esophagus X-Ray 08/19/17 00:00 IMPRESSION: Disorganized peristalsis with prominent tertiary contractions Small hiatal hernia with unprovoked gastroesophageal reflux to the cervical esophagus Smooth short segment of distal esophageal narrowing, impedes passage of the 12 mm barium tablet for 2 minutes. This reproduced the patient's symptoms. Qualifiers - * PATIENT BEING DISCHARGED WITH ANY OF THE FOLLOWING DIAGNOSIS: Heart Failure VTE patient discharged on overlapping Therapy?: No Reason(s) for not prescribing Overlap Therapy:: Contraindicated Stroke Pt being discharged on Anti-thrombolytic therapy?: No Reason(s) for not prescribing Anti-thrombolytic therapy:: Contraindicated Stroke Pt being discharged on Anti-coagulation therapy?: No Reason(s) for not prescribing Anti-coagulation therapy:: Not indicated Stroke Pt being discharged on Statins?: No Reason(s) for not prescribing Statins therapy:: Not indicated OR Pt being discharged on Aspirin therapy?: No Reason(s) for not prescribing Aspirin therapy:: Not indicated OR Pt being discharged on Statins?: No Reason(s) for not prescribing Statin therapy:: Not indicated OR Pt discharged ACEI/ARBS?: No Reason(s) for not prescribing ACEI/ARBS:: Not indicated HF Pt being discharged on ACEI for LVEF less than 40%?: Yes HF Pt being discharged on ARBS for LVEF less than 40%?: No Reason(s) for not prescribing ARBS:: Not indicated HF Pt with Afib discharged with Warfarin?: No Reason(s) for not prescribing Warfarin:: Not indicated HF Pt discharged on evidence-based Beta Yoel:: Yes
[2017-08-20] MEDS: TIOTROPIUM BROMIDE DPI 5 CAP/KIT (18 MCG/CAP) IH SCH (10:39)
[2017-08-20] MEDS: POTASSIUM CHLORIDE 10 MEQ CAPSULE.ER PO SCH (10:42)
[2017-08-20] MEDS: CARVEDILOL 12.5 MG TABLET PO SCH (10:42)
[2017-08-20] MEDS: ASPIRIN 81 MG TABLET, ENT COATED PO SCH (10:42)
[2017-08-20] MEDS: SERTRALINE HCL 50 MG TABLET PO SCH (10:42)
[2017-08-20] MEDS: LISINOPRIL 10 MG TABLET PO SCH (10:42)
[2017-08-20] MEDS: DABIGATRAN ETEXILATE 150 MG CAPSULE PO SCH (10:43)
[2017-08-20] MEDS: FUROSEMIDE INJ/PF 40 MG/4 ML SDV IV SCH (10:51)
[2017-08-20] MEDS: INSULIN GLARGINE,HUM.REC.ANLOG 300 UNIT/3 ML INSULN.PEN SUBCUT SCH (10:51)
[2017-08-20] MEDS: FUROSEMIDE 40 MG TABLET PO SCH (10:51)
[2017-08-20 10:58] VITALS: BP 137/87
--- NOTE | 2017-08-20 20:03 | XCELERA REPORT ---
[address] [address] Transthoracic Echocardiogram Report Name: MOON RIDER Age: 81 yrs Gender: Female : 1935 Patient Status: Inpatient Patient Location: [address] [place] [address] Study Date: 08/19/2017 03:28 PM Procedure: A two-dimensional transthoracic echocardiogram with color flow and Doppler was performed. The study was technically difficult with many images being suboptimal in quality. Reason For Study: CHF History: CHF. Ordering Physician: OLIVA CRUZ Performed By: Su Del Real Interpretation Summary The left ventricle is mildly dilated. There is normal left ventricular wall thickness. LV EF is 35% to 40% Left ventricular systolic function is moderately reduced. Doppler measurements suggest impaired left ventricular relaxation, which is associated with grade I/IV or mild diastolic dysfunction There is moderate global hypokinesis of the left ventricle. The right ventricle is not well visualized secondary to technical limitations There is no evidence of mitral valve prolapse. There is no mitral valve stenosis. There is no mitral regurgitation noted. There is no aortic valve stenosis There is no LVOT obstruction. No aortic regurgitation is present. There is no tricuspid stenosis. There is a moderate amount of tricuspid regurgitation There is mild pulmonary hypertension by echo RVSP is 45 mm of Hg , with RA mean of 10. The left atrium is mildly dilated. There is no pericardial effusion. MMode/2D Measurements & Calculations RVDd: 3.6 cm LVIDd: 5.9 cm FS: 17.0 % LVOT diam: 1.4 cm IVSd: 0.82 cm LVIDs: 4.9 cm EDV(Teich): 173.2 ml LVOT area: 1.6 cm2 LVPWd: 0.97 cm ESV(Teich): 112.7 ml EF(Teich): 34.9 % Doppler Measurements & Calculations MV E max rubens: MV dec slope: Ao V2 max: LV V1 max P.3 cm/sec 447.9 cm/sec2 146.1 cm/sec 1.9 mmHg MV A max rubens: MV dec time: Ao max PG: LV V1 max: 0.99 cm/sec 0.20 sec 8.5 mmHg 68.7 cm/sec MV E/A: 92.5 DEEJAY(V,D): 0.75 cm2 TR max rubens: 297.0 cm/sec TR max P.5 mmHg Left Ventricle The left ventricle is mildly dilated. There is normal left ventricular wall thickness. LV EF is 35% to 40%. Left ventricular systolic function is moderately reduced. Doppler measurements suggest impaired left ventricular relaxation, which is associated with grade I/IV or mild diastolic dysfunction. There is moderate global hypokinesis of the left ventricle. There is no thrombus. Right Ventricle The right ventricle is not well visualized secondary to technical limitations. Atria Right atrium not well visualized secondary to technical limitations. The right atrium is mildly dilated. The left atrium is mildly dilated. Mitral Valve There is no evidence of mitral valve prolapse. There is no vegetation seen on the mitral valve. There is no mitral valve stenosis. There is no mitral regurgitation noted. Aortic Valve There is no aortic valvular vegetation. There is no aortic valve stenosis. There is no LVOT obstruction. No aortic regurgitation is present. Tricuspid Valve There is no tricuspid stenosis. There is a moderate amount of tricuspid regurgitation. There is mild pulmonary hypertension by echo. RVSP is 45 mm of Hg , with RA mean of 10. Pulmonic Valve There is no pulmonic valvular stenosis. There is no pulmonic valvular regurgitation. Great Vessels The aortic root is not well visualized. Effusions There is no pericardial effusion. : OLIVA CRUZ > Joanna Krishna
[2017-08-22] MEDS ORDERED: ERGOCALCIFEROL (VITAMIN D2) 50000 UNIT (1.25 MG) CAPSULE PO SCH (10:00)
== END 2017-08-20 11:15 | disposition home or self-care (01) | DRG 292 ==
LOC: ER 07:15 → UNDOADMIN 09:52 → EH 09:52 → 4W 14:08 → 5 15:11
PROVIDERS: ADMIT Internal Medicine; ATTEND Internal Medicine
PROC: 3E0F73Z Introduction of Anti-inflammatory into Respiratory Tract, Via Natural or Artificial Opening (ICD-10-PCS; principal; 2017-08-17)
DX: I11.0 Hypertensive heart disease with heart failure (principal); N39.0 Urinary tract infection, site not specified; I50.23 Acute on chronic systolic (congestive) heart failure; J44.9 Chronic obstructive pulmonary disease, unspecified; I25.10 Atherosclerotic heart disease of native coronary artery without angina pectoris; I48.91 Unspecified atrial fibrillation; E11.9 Type 2 diabetes mellitus without complications; E03.9 Hypothyroidism, unspecified; F41.9 Anxiety disorder, unspecified; F32.9 Major depressive disorder, single episode, unspecified; E66.9 Obesity, unspecified; B96.20 Unspecified Escherichia coli [E. coli] as the cause of diseases classified elsewhere; E78.00 Pure hypercholesterolemia, unspecified; K57.90 Diverticulosis of intestine, part unspecified, without perforation or abscess without bleeding; K44.9 Diaphragmatic hernia without obstruction or gangrene; Z68.31 Body mass index [BMI] 31.0-31.9, adult; Z79.82 Long term (current) use of aspirin; Z79.4 Long term (current) use of insulin; Z79.899 Other long term (current) drug therapy; Z95.1 Presence of aortocoronary bypass graft; Z83.3 Family history of diabetes mellitus; Z88.0 Allergy status to penicillin
CPT/HCPCS: 36415; 71275; 74174; 74220; 80048; 80053; 81001; 82550; 82553; 82962; 83036; 83735; 83880; 84100; 84443; 84484; 85025; 85610; 85730; 87040; 87077; 87086; 87088; 87186; 93306; 94640; 96374; 99285; J1650; J1815; J1940; J1956; J3490; J7620; S0119

== ENCOUNTER → 2017-09-29 | Outpatient (CLI) | payer MEDICARE, MEDICAID ==
[2017-09-29 12:19] LABS: ALANINE AMINOTRANSFERASE 18 U/L (9-52); ANION GAP 13 (5-19); BLOOD UREA NITROGEN 20 mg/dL (7-20); CALCIUM 9.5 mg/dL (8.4-10.2); CARBON DIOXIDE 26 mmol/L (22-30); CHLORIDE 105 mmol/L (98-107); CHOLESTEROL 147.44 mg/dL (0-200); DIRECT LDL 71 mg/dL (<100); GLUCOSE 101 mg/dL (75-110); POTASSIUM 4.2 mmol/L (3.6-5.0); SODIUM 144.1 mmol/L (137-145); TRIGLYCERIDES 159 mg/dL (<150); VLDL CHOLESTEROL 31.8 mg/dL (10-31)
[2017-09-30 12:38] LABS: CREATININE URINE 15.1 mg/dL (Not Estab.); MICROALBUMIN URINE 6.7 ug/mL (Not Estab.)
== END ==
LOC: LAB 08:58
PROVIDERS: ATTEND Family Medicine Geriatric Medicine
DX: I25.10 Atherosclerotic heart disease of native coronary artery without angina pectoris (principal); E78.5 Hyperlipidemia, unspecified; E53.8 Deficiency of other specified B group vitamins; E53.9 Vitamin B deficiency, unspecified; E11.9 Type 2 diabetes mellitus without complications
CPT/HCPCS: 36415; 80048; 80061; 82043; 82570; 82607; 83036; 84443; 84460

== ENCOUNTER → 2017-10-15 | Outpatient (CLI) | payer MEDICARE, MEDICAID ==
--- NOTE | 2017-10-15 14:36 | RADIOLOGY REPORT (SQ) ---
EXAM DESCRIPTION: SHOULDER RIGHT 2 OR MORE VIEWS COMPLETED DATE/TIME: 10/15/2017 2:25 pm REASON FOR STUDY: RIGHT SHOULDER PAIN (M25.511) M25.511 PAIN IN RIGHT SHOULDER M54.12 RADICULOPATH Y, CERVICAL REGION M77.11 LATERAL EPICONDYLITIS, RIGHT ELBOW COMPARISON: None. NUMBER OF VIEWS: Three views. TECHNIQUE: Internal rotation, external rotation, and Y view images acquired of the right shoulder. LIMITATIONS: None. FINDINGS: MINERALIZATION: Normal. BONES: No fracture or dislocation. JOINTS: Degenerative joint disease in the glenohumeral joint. VISUALIZED LUNGS AND RIBS: No pneumothorax. No rib fracture. SOFT TISSUES: Subacromial space is narrowed. OTHER: No other significant finding. IMPRESSION: Degenerative joint disease. Narrowed subacromial space suggests longstanding rotator cu ff disease. TECHNICAL DOCUMENTATION: JOB ID: [id number] [employer]- All Rights Reserved Reading location - IP/workstation name: [email or web address]
--- NOTE | 2017-10-15 14:37 | RADIOLOGY REPORT (SQ) ---
EXAM DESCRIPTION: T SPINE AP/LAT COMPLETED DATE/TIME: 10/15/2017 2:25 pm REASON FOR STUDY: CERVICAL RADICULOPATHY AND NECK PAIN (M54.12) M25.511 PAIN IN RIGHT SHOULDER M54. 12 RADICULOPATHY, CERVICAL REGION M77.11 LATERAL EPICONDYLITIS, RIGHT ELBOW COMPARISON: None. NUMBER OF VIEWS: Two views. TECHNIQUE: AP and lateral radiographic images acquired of the thoracic spine. LIMITATIONS: None. FINDINGS: MINERALIZATION: Normal. ALIGNMENT: Normal. No scoliosis. VERTEBRAE: No fracture or bone lesion. Maintained height, normal segmentation. DISCS: Multilevel disc space narrowing with osteophytes. HARDWARE: None in the spine. MEDIASTINUM AND SOFT TISSUES: Normal heart size and aortic contour. No soft tissue abnormality. VISUALIZED LUNG GARDNER: Clear. OTHER: No other significant finding. IMPRESSION: SPONDYLOSIS WITHOUT BONE LESION OR FRACTURE. TECHNICAL DOCUMENTATION: JOB ID: [id number] [employer] All Rights Reserved Reading location - IP/workstation name: [email or web address]
--- NOTE | 2017-10-15 14:38 | RADIOLOGY REPORT (SQ) ---
EXAM DESCRIPTION: CERV SP 4 OR 5 VIEWS COMPLETED DATE/TIME: 10/15/2017 2:25 pm REASON FOR STUDY: CERVICAL RADICULOPATHY AND NECK PAIN (M54.12) M25.511 PAIN IN RIGHT SHOULDER M54. 12 RADICULOPATHY, CERVICAL REGION M77.11 LATERAL EPICONDYLITIS, RIGHT ELBOW COMPARISON: None. NUMBER OF VIEWS: Five views. TECHNIQUE: AP, lateral, obliques and odontoid radiographic images acquired of the cervical spine. LIMITATIONS: None. FINDINGS: MINERALIZATION: Normal. ALIGNMENT: Anatomic. VERTEBRAE: Vertebral bodies of normal height. DISCS: Disc spaces are narrowed from C4 to C7. Anterior and posterior osteophytes are present. FORAMINA: There is mild foraminal narrowing at several levels secondary to the presence of uncoverteb ral osteophytes. LATERAL AND POSTERIOR ELEMENTS: Mild hypertrophic facet changes are seen. HARDWARE: None in the spine. SOFT TISSUES: No masses or calcifications. Lung apices clear. OTHER: No other significant finding. IMPRESSION: Degenerative disc disease and spondylosis. Mild facet arthropathy. TECHNICAL DOCUMENTATION: JOB ID: [id number] [employer]- All Rights Reserved Reading location - IP/workstation name: [email or web address]
--- NOTE | 2017-10-15 14:39 | RADIOLOGY REPORT (SQ) ---
EXAM DESCRIPTION: ELBOW RIGHT OVER 2 VIEWS COMPLETED DATE/TIME: 10/15/2017 2:31 pm REASON FOR STUDY: LATERAL EPICONDYLITIS, RIGHT ELBOW(M77.11) M25.511 PAIN IN RIGHT SHOULDER M54.12 RADICULOPATHY, CERVICAL REGION M77.11 LATERAL EPICONDYLITIS, RIGHT ELBOW COMPARISON: None. NUMBER OF VIEWS: Four views. TECHNIQUE: AP, lateral, and both oblique radiographic images acquired of the right elbow. LIMITATIONS: None. FINDINGS: MINERALIZATION: Osteopenic BONES: No acute fracture. Minimal bony spurring along the medial and lateral epicondyles, distal rig ht humerus. Mild bony spurring, coronoid process of the ulna. JOINT: No joint effusion. SOFT TISSUES: Atherosclerotic arterial vascular calcification OTHER: No other significant finding. IMPRESSION: Bony spurring and proximal tendon calcification/ossification along the right distal faiza jennifer medial and lateral epicondyles TECHNICAL DOCUMENTATION: JOB ID: [id number] [email or web address]- All Rights Reserved Reading location - IP/workstation name: [email or web address]
== END ==
LOC: RAD 12:27
PROVIDERS: ATTEND Family Medicine Geriatric Medicine
DX: M25.511 Pain in right shoulder (principal); M54.12 Radiculopathy, cervical region; M77.11 Lateral epicondylitis, right elbow
CPT/HCPCS: 72050; 72070

== ENCOUNTER → 2017-12-13 | Outpatient (CLI) | payer MEDICARE ==
[2017-12-13 14:14] LABS: ABSOLUTE EOSINOPHILS # (AUTO) 0.1 10^3/uL (0.0-0.6); ABSOLUTE LYMPHOCYTES (AUTO) 1.1 10^3/uL (0.5-4.7); ABSOLUTE MONOCYTES (AUTO) 0.3 10^3/uL (0.1-1.4); ABSOLUTE NEUT (AUTO) 4.6 10^3/uL (1.7-8.2); BASOPHILS % (AUTO) 0.5 % (0-2); EOSINOPHILS % (AUTO) 1.9 % (0-6); HEMATOCRIT 32.9 % (36.0-47.0); LYMPHOCYTES % (AUTO) 17.8 % (13-45); MEAN CORPUSCULAR HEMOGLOBIN 28.7 pg (27.0-33.4); MEAN CORPUSCULAR HGB CONC 33.5 g/dL (32.0-36.0); MEAN CORPUSCULAR VOLUME 86 fl (80-97); MONOCYTES % (AUTO) 5.2 % (3-13); PLATELET COUNT 203 10^3/uL (150-450); RED BLOOD COUNT 3.83 10^6/uL (3.72-5.28); RED CELL DISTRIBUTION WIDTH 15.2 % (11.5-14.0); SEGMENTED NEUTROPHILS % (AUTO) 74.6 % (42-78); TOTAL CELLS COUNTED % (AUTO) 100 %; WHITE BLOOD COUNT 6.2 10^3/uL (4.0-10.5)
[2017-12-13 14:47] LABS: ALANINE AMINOTRANSFERASE 13 U/L (9-52); ALKALINE PHOSPHATASE 94 U/L (38-126); ANION GAP 12 (5-19); ASPARTATE AMINO TRANSFERASE 16 U/L (14-36); BILIRUBIN,DIRECT 0.2 mg/dL (0.0-0.4); BILIRUBIN,TOTAL 0.6 mg/dL (0.2-1.3); BLOOD UREA NITROGEN 14 mg/dL (7-20); CALCIUM 9.5 mg/dL (8.4-10.2); CARBON DIOXIDE 27 mmol/L (22-30); CHLORIDE 104 mmol/L (98-107); SODIUM 142.8 mmol/L (137-145)
[2017-12-13 14:56] LABS: ALBUMIN 3.8 g/dL (3.5-5.0); GLUCOSE 117 mg/dL (75-110); POTASSIUM 4.8 mmol/L (3.6-5.0); TOTAL PROTEIN 6.7 g/dL (6.3-8.2)
[2017-12-13 15:02] LABS: ERYTHROCYTE SEDIMENTATION RATE 45 mm/hr (0-30)
[2017-12-14 14:28] LABS: APPEARANCE,URINE CLEAR; BILIRUBIN,URINE NEGATIVE (NEGATIVE); COLOR,URINE YELLOW; GLUCOSE, URINE NEGATIVE (NEGATIVE); KETONES,URINE NEGATIVE (NEGATIVE); LEUKOCYTE ESTERASE,URINE TRACE (NEGATIVE); NITRITE,URINE NEGATIVE (NEGATIVE); PROTEIN,URINE NEGATIVE (NEGATIVE); URINE SPECIFIC GRAVITY 1.015; UROBILINOGEN,URINE NEGATIVE mg/dL (<2.0)
== END ==
LOC: OD 12:28
PROVIDERS: ATTEND Family Medicine
DX: R44.3 Hallucinations, unspecified (principal)
CPT/HCPCS: 36415; 80053; 81001; 82607; 85025; 85652; 86592; 87086; 87088; 87186

== ENCOUNTER → 2017-12-15 | Outpatient (CLI) | payer MEDICARE, MEDICAID ==
--- NOTE | 2017-12-15 13:44 | RADIOLOGY REPORT (SQ) ---
EXAM DESCRIPTION: CT HEAD WITHOUT COMPLETED DATE/TIME: 12/15/2017 1:26 pm REASON FOR STUDY: HALLUCINATIONS R44.3 HALLUCINATIONS, UNSPECIFIED COMPARISON: 05/15/2017. TECHNIQUE: Axial images acquired through the brain without intravenous contrast. Images reviewed wi th bone, brain and subdural windows. Additional sagittal and coronal reconstructions were generated. Images stored on PACS. All CT scanners at this facility use dose modulation, iterative reconstruction, and/or weight based d osing when appropriate to reduce radiation dose to as low as reasonably achievable (ALARA). [facility]: Dose Right [facility]: CareDose [facility]: Dose Right [facility]: Teradose 4D [facility]: Pie Digital RADIATION DOSE: CT Rad equipment meets quality standard of care and radiation dose reduction techniq ues were employed. CTDIvol: 48.6 mGy. DLP: 954 mGy-cm.mGy. LIMITATIONS: None. FINDINGS: VENTRICLES: Prominent. CEREBRUM: No masses. No hemorrhage. No midline shift. Areas of low density in the white matter mos t likely due to chronic micro-vascular ischemic change. No evidence for acute infarction. CEREBELLUM: No masses. No hemorrhage. No alteration of density. No evidence for acute infarction. EXTRAAXIAL SPACES: Age-related involutional change. No fluid collections. No masses. ORBITS AND GLOBE: No intra- or extraconal masses. Normal contour of globe without masses. CALVARIUM: No fracture. PARANASAL SINUSES: No fluid or mucosal thickening. SOFT TISSUES: No mass or hematoma. OTHER: No other significant finding. IMPRESSION: CHRONIC CHANGES OF ATROPHY AND MICROVASCULAR ISCHEMIA. NO ACUTE PROCESS. EVIDENCE OF ACUTE STROKE: NO. TECHNICAL DOCUMENTATION: JOB ID: [id number] Quality ID # [id number]: Final reports with documentation of one or more dose reduction techniques (e.g., Au tomated exposure control, adjustment of the mA and/or kV according to patient size, use of iterative reconstruction technique) 2010 [employer] All Rights Reserved Reading location - IP/workstation name: [email or web address]
== END ==
LOC: RAD 13:01
PROVIDERS: ATTEND Family Medicine
DX: R44.3 Hallucinations, unspecified (principal)
CPT/HCPCS: 70450

== ENCOUNTER → 2018-02-03 | Outpatient (CLI) | payer MEDICARE ==
--- NOTE | 2018-02-03 16:18 | XCELERA REPORT ---
[address] [address] Lower Extremity Venous Evaluation Procedure: Color flow and duplex imaging of the veins of the right lower extremity as well as the left Common Femoral vein. Right Sided Venous Evaluation Lucent, non vascular areas in the subcutaneous tissues in the lower leg. Normal vessel filling wall to wall, compression and augmentation as well as Colour flow down to the infrageniculate veins. Left Sided Venous Evaluation The left common femoral vein is fully compressible. Spontaneous and phasic flow is present in the left common femoral vein. Interpretation Summary No duplex evidence of DVT or obstruction in the right lower extremity nor in the left Common Femoral vein. Right leg edema noted. Name: MOON RIDER Age: 82 yrs Gender: Female : 1935 Patient Status: Outpatient Patient Location: Study Date: 02/03/2018 02:54 PM Reason For Study: RIGHT LEG PAIN Ordering Physician: ANDI PINEDA Performed By: Franco Nino : ANDI PINEDA > Renny Azar
== END ==
LOC: SP 14:07
PROVIDERS: ATTEND Family Medicine
DX: M79.661 Pain in right lower leg (principal); R60.0 Localized edema
CPT/HCPCS: 93971

== ENCOUNTER → 2019-03-02 | Outpatient (CLI) | payer MEDICARE, MEDICAID ==
[2019-03-02 13:35] LABS: ALBUMIN 4.2 g/dL (3.5-5.0); ALKALINE PHOSPHATASE 77 U/L (38-126); ANION GAP 8 (5-19); ASPARTATE AMINO TRANSFERASE 20 U/L (14-36); BILIRUBIN,DIRECT 0.4 mg/dL (0.0-0.4); BILIRUBIN,TOTAL 0.6 mg/dL (0.2-1.3); BLOOD UREA NITROGEN 17 mg/dL (7-20); CALCIUM 9.7 mg/dL (8.4-10.2); CARBON DIOXIDE 30 mmol/L (22-30); CHLORIDE 103 mmol/L (98-107); GLUCOSE 99 mg/dL (75-110); POTASSIUM 4.7 mmol/L (3.6-5.0); TOTAL PROTEIN 7.1 g/dL (6.3-8.2); TRIGLYCERIDES 142 mg/dL (<150)
[2019-03-02 14:02] LABS: DIRECT LDL 50 mg/dL (<100)
[2019-03-04 13:36] LABS: CREATININE URINE 131.6 mg/dL (Not Estab.)
== END ==
LOC: OD 12:08
PROVIDERS: ATTEND Family Medicine
DX: E11.69 Type 2 diabetes mellitus with other specified complication (principal); E78.5 Hyperlipidemia, unspecified
CPT/HCPCS: 36415; 80053; 80061; 82043; 82570; 83036

== ENCOUNTER → 2019-07-27 | Outpatient (CLI) | payer MEDICAID, MEDICARE ==
--- NOTE | 2019-07-27 16:05 | NEURO WORKBENCH EEG REPORT ---
Patient: Joanna Mg ID: [id number] Referring Doctor: Leoncio Pandey Date: 07/27/2019 Reason for study: Evaluate Epileptiform activity Medications: History: This is a 83 year old female with a history of HTN, DM, COPD, Hypercholesterolemia, A-fif, Anxiety, Depression, Dizziness, and Arthritis. This EEG was requested for evaluation of epileptiform activity. EEG Interpretation: This EEG was recorded during wakefulnesss and stage I sleep. The awake EEG is characterized by a well organized background with a well developed and reactive posterior dominant rhythm (PDR) of approximately 7 Hz. The EEG is symmetric in amplitudes and frequencies. Photic stimulation resulted in no appresicable photic driving, and there was no epileptiform activity elicited with photic stimulation. Stage I sleep was achieved and characterized by slow slowing of the background rhythm by 1-2 Hz. There were no epileptiform abnormalities (no sharp waves and no spikes). There were no seizures. The EKG showed a irregular rhythm with typically 60-80 beats per minute. EEG Impression: This EEG is mildly abnormal due to mild background slowing in the theta range which is nonspecific for etiology but consistnet with mild encephalopathy. There was no epileptiform activity or seizures. A single normal routine EEG does not rule out the possibility of epilepsy. If there is high clinical suspicion for epilepsy, then additional EEG evaluation should be considered with a sleep- deprived EEG or more prolonged EEG monitoring. INTERPRETING NEUROLOGIST: Ramesh Vizcarra MD Board certified by the [place] [employer] in Neurology, Clinical Neurophysiology, and Sleep Medicine [facility]
== END ==
LOC: NEURO 12:36
PROVIDERS: ATTEND Pediatrics
DX: R44.3 Hallucinations, unspecified (principal); R41.89 Other symptoms and signs involving cognitive functions and awareness; F41.8 Other specified anxiety disorders
CPT/HCPCS: 95819

== ENCOUNTER → 2019-08-29 | Outpatient (CLI) | payer MEDICARE ==
[2019-08-29 15:33] LABS: ABSOLUTE EOSINOPHILS # (AUTO) 0.1 10^3/uL (0.0-0.6); ABSOLUTE LYMPHOCYTES (AUTO) 1.1 10^3/uL (0.5-4.7); ABSOLUTE MONOCYTES (AUTO) 0.4 10^3/uL (0.1-1.4); ABSOLUTE NEUT (AUTO) 4.1 10^3/uL (1.7-8.2); BASOPHILS % (AUTO) 0.5 % (0-2); EOSINOPHILS % (AUTO) 1.4 % (0-6); HEMATOCRIT 36.4 % (36.0-47.0); HEMOGLOBIN 11.9 g/dL (12.0-15.5); LYMPHOCYTES % (AUTO) 18.9 % (13-45); MEAN CORPUSCULAR HEMOGLOBIN 29.7 pg (27.0-33.4); MEAN CORPUSCULAR HGB CONC 32.7 g/dL (32.0-36.0); MEAN CORPUSCULAR VOLUME 91 fl (80-97); MONOCYTES % (AUTO) 6.5 % (3-13); PLATELET COUNT 140 10^3/uL (150-450); RED BLOOD COUNT 4.01 10^6/uL (3.72-5.28); RED CELL DISTRIBUTION WIDTH 16.8 % (11.5-14.0); SEGMENTED NEUTROPHILS % (AUTO) 72.7 % (42-78); TOTAL CELLS COUNTED % (AUTO) 100 %; WHITE BLOOD COUNT 5.7 10^3/uL (4.0-10.5)
[2019-08-29 16:00] LABS: ANION GAP 8 (5-19); BLOOD UREA NITROGEN 15 mg/dL (7-20); CALCIUM 9.6 mg/dL (8.4-10.2); CARBON DIOXIDE 27 mmol/L (22-30); CHLORIDE 103 mmol/L (98-107); GLUCOSE 114 mg/dL (75-110); POTASSIUM 4.7 mmol/L (3.6-5.0)
--- NOTE | 2019-08-29 16:04 | RADIOLOGY REPORT (SQ) ---
EXAM DESCRIPTION: CHEST PA/LATERAL IMAGES COMPLETED DATE/TIME: 08/29/2019 3:06 pm REASON FOR STUDY: PRE-OP Z01.812 ENCOUNTER FOR PREPROCEDURAL LABORATORY EXAMINATION Z01.[address] PREPROCEDURAL RESPIRATORY EXAMINATION Z01.810 ENCOUNTER FOR PREPROCEDURAL CARDIOVASCULAR EXA MINATI COMPARISON: 09/03/2010 NUMBER OF VIEWS: Two views. TECHNIQUE: Frontal and lateral radiographic views of the chest acquired. LIMITATIONS: None. FINDINGS: LUNGS AND PLEURA: No opacities, masses or pneumothorax. No pleural effusion. MEDIASTINUM AND HILAR STRUCTURES: No masses or contour abnormality. HEART AND VASCULAR STRUCTURES: Cardiac enlargement. Vascular congestion. BONES: No acute findings. HARDWARE: CABG. OTHER: No other significant finding. IMPRESSION: CARDIAC ENLARGEMENT. VASCULAR CONGESTION. TECHNICAL DOCUMENTATION: JOB ID: [id number] 2010 [employer]- All Rights Reserved Reading location - IP/workstation name: [email or web address]
--- NOTE | 2019-08-29 21:47 | EKG REPORT ---
SEVERITY:- ABNORMAL ECG - ATRIAL FIBRILLATION, V-RATE 76-128 RBBB AND LPFB : Confirmed by: Jam Huang MD 29-Aug-2019 21:46:38
[2019-08-30 14:47] LABS: APPEARANCE,URINE SLIGHTLY-CLOUDY; BILIRUBIN,URINE SMALL (NEGATIVE); GLUCOSE, URINE NEGATIVE (NEGATIVE); KETONES,URINE NEGATIVE (NEGATIVE); LEUKOCYTE ESTERASE,URINE LARGE (NEGATIVE); NITRITE,URINE NEGATIVE (NEGATIVE); PROTEIN,URINE 30 mg/dL (NEGATIVE); URINE SPECIFIC GRAVITY 1.032
[2019-08-30 14:48] LABS: COLOR,URINE DARK YELLOW
== END ==
LOC: OD 14:18
PROVIDERS: ATTEND Orthopaedic Surgery
DX: Z01.812 Encounter for preprocedural laboratory examination (principal); Z01.811 Encounter for preprocedural respiratory examination; Z01.810 Encounter for preprocedural cardiovascular examination; I51.7 Cardiomegaly; Z95.1 Presence of aortocoronary bypass graft
CPT/HCPCS: 36415; 71046; 80048; 81001; 85025; 93005; 93010

== ENCOUNTER 2019-09-25 06:44 | Inpatient (IN) | payer MEDICARE, MEDICAID ==
[~2019-09-25 06:44] MED LIST: BUPIVACAINE INJ/PF LIPOSOME/PF 266 MG/20 ML SDV INJ PRN; CEFAZOLIN INJ 1 GM VIAL IV PRN; CEFAZOLIN INJ 1 GM VIAL ONE; CLINDAMYCIN 600 MG/D5W RTU 600 MG/50 ML RTUPB IV PRN; FENTANYL CITRATE INJ/PF 100 MCG/2 ML AMPUL ONE; IBUPROFEN 800 MG in NORMAL SALINE 250 ML IV PRN; LACTATED RINGERS 1000 ML IV PRN; LIDOCAINE 0.5% INJ-PF (5 MG/ML) 50 ML SDV ONE; MIDAZOLAM 2 MG/2 ML INJ ONE; ONDANSETRON HCL INJ/PF 4 MG/2 ML SDV ONE; OXYCODONE HCL SR 10 MG TABLET PO ONE; OXYCODONE HCL SR 10 MG TABLET PO PRN; PANTOPRAZOLE SODIUM 20 MG TABLET.DR PO ONE; PANTOPRAZOLE SODIUM 20 MG TABLET.DR PO PRN; PROPOFOL INJ 200 MG/20 ML VIAL IV ONE; TRANEXAMIC ACID INJ/PF 1,000 MG/10 ML SDV ONE; VANCOMYCIN HCL 1,000 MG in DEXTROSE 5%-WATER 250 ML IV PRN
[2019-09-25] MEDS ORDERED: EPHEDRINE SULFATE INJ 50 MG/1 ML AMPULE ONE (06:54)
[2019-09-25] MEDS ORDERED: THROMBIN (BOVINE) TOPICAL 20000 UNIT VIAL ONE (08:01)
[2019-09-25] MEDS ORDERED: THROMBIN (BOVINE) 5000 UNIT EPITAXIS KIT ONE (08:01)
[2019-09-25] MEDS ORDERED: BUPIVACAINE HCL 0.25% /EPINEPHRINE INJ/PF 30 ML SDV ONE ×2 (08:02→09:16)
[2019-09-25] MEDS ORDERED: ALBUTEROL SULFATE 0.083% NEB 2.5 MG/3 ML AMPUL NEB ONE (08:41)
[2019-09-25] MEDS ORDERED: CLINDAMYCIN 600 MG/D5W RTU 600 MG/50 ML RTUPB IV ONE (08:48)
[2019-09-25 09:24] LABS: POTASSIUM 4.5 mmol/L (3.6-5.0)
[2019-09-25] MEDS ORDERED: PROMETHAZINE HCL INJ 25 MG/1 ML VIAL IV PRN ×2 (10:01)
[2019-09-25] MEDS ORDERED: ONDANSETRON HCL INJ/PF 4 MG/2 ML SDV IV PRN (10:01)
[2019-09-25] MEDS ORDERED: MEPERIDINE HCL/PF INJ 25 MG/1 ML DISP.SYRIN IV PRN (10:01)
[2019-09-25] MEDS ORDERED: MORPHINE SULFATE 10 MG/ML INJ IV PRN (10:01)
[2019-09-25] MEDS ORDERED: DIPHENHYDRAMINE HCL 50 MG/ML VIAL IV PRN ×2 (10:01→10:23)
[2019-09-25] MEDS ORDERED: FENTANYL CITRATE INJ/PF 100 MCG/2 ML AMPUL IV PRN ×3 (10:01)
[2019-09-25] MEDS ORDERED: (PENDING PHARMACY ID) (Ondansetron Hcl [Zofran 4 Mg Tablet] 4 MG) PO PRN (10:21)
[2019-09-25] MEDS ORDERED: (PENDING PHARMACY ID) (Carboxymethylcellulose Sodium [Refresh Tears] 1 DROP) OU PRN (10:21)
[2019-09-25] MEDS ORDERED: (PENDING PHARMACY ID) (Albuterol Sulfate 2 PUFF) IH PRN (10:21)
--- NOTE | 2019-09-25 10:21 | Operative Report ---
Operative Report DATE OF SURGERY: 09/25/19 PREOPERATIVE DIAGNOSIS: Right knee arthritis OPERATION: Right knee arthroplasty SURGEON: IVAN MEJIA ANESTHESIA: Spinal TISSUE REMOVED OR ALTERED: Bone to pathology ESTIMATED BLOOD LOSS: 75 PROCEDURE: Implants used: Femur: Arnoldo triathlon size 3 CR cemented femur Tibia: 4 tibia Tibial liner: 9 mm CS insert Patella: 32 mm oval patella Procedure with the patient supine on the operating table the right the limb is prepped and draped in a sterile fashion. The limb was elevated for exsanguination and the tourniquet inflated to 280 torr. A standard midline median parapatellar approach the knee is taken. Access is gained to the femoral canal through the intercondylar notch. Intramedullary alignment instrumentation used to resect 10 mm of distal femur in 5 of valgus. Sizing guide indicated a size 3 femur. Appropriate cutting jig is then used to fashion anterior posterior and chamfer cuts. A trial reduction femurs performed and this is judged to be adequate. Attention was next turned to the tibia. Using an extra medullary alignment system 9 millimeters was resected off the lateral tibial plateau. This is sized to a size 4 tibia. A trial reduction was now performed with a 3 femur and a 4 tibia using a 9 millimeters spacer. It is full extension and central patellofemoral tracking. The articular surface the patella was next resected using an oscillating saw. All trial implants were removed. Polymethylmethacrylate is mixed and used to cement the above implants in place. On adequate curing the cement excess cement was removed the tourniquet was deflated hemostasis obtained the wound is then closed in layers using interrupted Vicryl followed by trevor. A sterile compressive dressing was applied and the patient returned to recovery room in satisfactory condition.
[2019-09-25] MEDS ORDERED: TRANEXAMIC ACID INJ/PF 1,000 MG/10 ML SDV IV ONE ×2 (10:23→14:15)
[2019-09-25] MEDS ORDERED: MAG HYDROX/AL HYDROX/SIMETH SUSP 30 ML UDCUP PO PRN (10:23)
[2019-09-25] MEDS ORDERED: ONDANSETRON 4 MG TAB.RAPDIS PO PRN ×2 (10:23→19:50)
[2019-09-25] MEDS ORDERED: RINGERS SOLUTION,LACTATED 1,000 ML IV PRN (10:23)
--- NOTE | 2019-09-25 12:03 | RADIOLOGY REPORT (SQ) ---
EXAM DESCRIPTION: KNEE RIGHT 2 VIEWS IMAGES COMPLETED DATE/TIME: 09/25/2019 10:56 am REASON FOR STUDY: Post OP -Long Cassette in PACU M17.11 UNILATERAL PRIMARY OSTEOARTHRITIS, RIGHT KN EE COMPARISON: None. NUMBER OF VIEWS: Two view(s). TECHNIQUE: Digital radiographic images of the right knee post-procedure. LIMITATIONS: None. FINDINGS: BONES: No worrisome or unexpected findings post-procedure. DEVICE: Total knee arthroplasty. SOFT TISSUES: No worrisome findings. Expected postoperative soft tissue changes. IMPRESSION: SATISFACTORY POSTOPERATIVE RIGHT KNEE. TECHNICAL DOCUMENTATION: JOB ID: [id number] 2010 [employer]- All Rights Reserved Reading location - IP/workstation name: [email or web address]
[2019-09-25] MEDS ORDERED: DEXTROSE 50%-WATER SYRINGE 12.5 GM/25 ML DOSE IV PRN (12:30)
[2019-09-25] MEDS ORDERED: DEXTROSE 50%-WATER SYRINGE 25 GM/50 ML DOSE IV PRN (12:30)
[2019-09-25] MEDS ORDERED: GLUCAGON,HUMAN RECOMB 1 MG INJ IM PRN (12:30)
[2019-09-25] MEDS ORDERED: DEXTROSE 40% GEL 15 GM TUBE PO PRN (12:30)
[2019-09-25] MEDS ORDERED: DEXTROSE 40% GEL 15 GM TUBE X 2 PO PRN (12:30)
[2019-09-25] MEDS: INSULIN LISPRO 100 UNIT/ML 3 ML VIAL SUBCUT SCH ×2 (16:38→22:40)
[2019-09-25] MEDS: METOPROLOL SUCCINATE 25 MG TAB.SR.24H PO SCH (17:49)
[2019-09-25] MEDS: SENNOSIDES/DOCUSATE 8.6-50 MG 1 EACH TABLET PO SCH (17:49)
[2019-09-25] MEDS: BUSPIRONE HCL 10 MG TABLET PO SCH (17:49)
[2019-09-25] MEDS: IBUPROFEN 800 MG in NORMAL SALINE 250 ML IV SCH (17:50)
[2019-09-25] MEDS ORDERED: ALBUTEROL SULFATE HFA (90 MCG/PUFF) 8 GM MDI IH PRN ×2 (19:45→21:00)
[2019-09-25] MEDS ORDERED: CARBOXYMETHYLCELLULOSE SOD 0.5% 0.4 ML DROPERETTE OU PRN (19:47)
[2019-09-25] MEDS ORDERED: ATORVASTATIN CALCIUM 10 MG TABLET PO SCH (22:00)
[2019-09-25] MEDS ORDERED: (PENDING PHARMACY ID) (Bimatoprost [Lumigan 0.01% Oph Soln 2.5 Ml/Bottle] 1 DROP) OU SCH (22:00)
[2019-09-25] MEDS ORDERED: LATANOPROST 0.005% OPH SOLN 2.5 ML OU SCH (22:00)
[2019-09-25] MEDS ORDERED: VANCOMYCIN HCL 1,000 MG in DEXTROSE 5%-WATER 250 ML IV ONE (22:23)
[2019-09-25] MEDS: DABIGATRAN ETEXILATE 150 MG CAPSULE PO SCH (22:39)
[2019-09-25] MEDS: MAGNESIUM OXIDE 400 MG TABLET PO SCH (22:39)
[2019-09-26] MEDS: OXYCODONE HCL IR 5 MG TABLET PO PRN ×2 (01:07→14:54)
[2019-09-26] MEDS: IBUPROFEN 800 MG in NORMAL SALINE 250 ML IV SCH ×2 (03:00→11:28)
[2019-09-26] MEDS ORDERED: ALBUTEROL SULFATE HFA (90 MCG/PUFF) 8 GM MDI IH ONE (04:04)
[2019-09-26] MEDS ORDERED: LEVOTHYROXINE SODIUM 0.05 MG TABLET PO SCH (06:00)
[2019-09-26] MEDS ORDERED: PANTOPRAZOLE SODIUM 40 MG TABLET.DR PO SCH (06:00)
[2019-09-26 07:16] LABS: HEMATOCRIT 31.1 % (36.0-47.0); HEMOGLOBIN 10.1 g/dL (12.0-15.5); MEAN CORPUSCULAR HEMOGLOBIN 29.3 pg (27.0-33.4); MEAN CORPUSCULAR HGB CONC 32.5 g/dL (32.0-36.0); MEAN CORPUSCULAR VOLUME 90 fl (80-97); PLATELET COUNT 117 10^3/uL (150-450); RED BLOOD COUNT 3.46 10^6/uL (3.72-5.28); RED CELL DISTRIBUTION WIDTH 16.2 % (11.5-14.0); WHITE BLOOD COUNT 5.8 10^3/uL (4.0-10.5)
--- NOTE | 2019-09-26 07:31 | PDOC DISCHARGE SUMMARY ---
Impression - Admit/DC Date/PCP Admission Date/Primary Care Provider: 09/25/19 06:44 ANDI PINEDA MD Discharge Date: 09/26/19 - Discharge Diagnosis (1) Arthritis of right knee Is this a current diagnosis for this admission?: Yes - Additional Information Discharge Diet: Regular Discharge Activity: Balance Activity w/Rest, No tub bath Referrals: IVAN DICKEY MD [ACTIVE STAFF] - 10/10/19 9:30 am Home Medications: Albuterol Sulfate [Proair HFA Inhalation Aerosol 8.5 gm MDI] 2 puff IH Q6HP PRN 08/17/17 Aspirin [Ecotrin 81 mg EC Tablet] 81 mg PO DAILY 08/17/17 Bimatoprost [Lumigan 0.01% Oph Soln 2.5 ml/Bottle] 1 drop OU QHS 08/17/17 Carboxymethylcellulose Sodium [Refresh Tears] 1 drop OU DAILYP PRN 08/17/17 Dabigatran Etexilate Mesylate [Pradaxa] 150 mg PO Q12 08/17/17 Ergocalciferol (Vitamin D2) [Drisdol 50,000 unit (1.25MG) Capsule] 50,000 unit PO CLARK@1000 08/17/17 Furosemide [Lasix 40 mg Tablet] 40 mg PO DAILY 08/17/17 Insulin Glargine,Hum.rec.anlog [Lantus Insulin 100 Unit/mL Insulin Pen] 40 units SQ DAILY 08/17/17 Levothyroxine Sodium [Synthroid 0.05 mg Tablet] 0.05 mg PO Q6AM 08/17/17 Magnesium Oxide [Mag-Ox 400 mg Tablet] 400 mg PO Q12 08/17/17 Metformin HCl [Glucophage] 1,000 mg PO BIDBS 08/17/17 Ondansetron HCl [Zofran 4 mg Tablet] 4 mg PO Q8HP PRN 08/17/17 Potassium Chloride [Klor-Con M20] 20 meq PO DAILY 08/17/17 Pravastatin Sodium [Pravachol] 40 mg PO DAILY 08/17/17 Sertraline HCl [Zoloft] 100 mg PO DAILY 08/17/17 Tiotropium [place] [Spiriva Handihaler 5 Cap/Kit (18 Mcg/Cap)] 1 puff IH DAILY 08/17/17 Tramadol HCl [Ultram 50 mg Tablet] 50 mg PO Q8HP PRN 08/17/17 Acetaminophen [Acetaminophen Extra Strength] 500 mg PO Q6HP PRN 09/25/19 Albuterol Sulfate [Ventolin 0.083% Neb 2.5 mg/3 ml Ampul] 1 vial NEB RTTIDP PRN 09/25/19 Buspirone HCl [Buspar 10 mg Tablet] 5 mg PO BID 09/25/19 Cyanocobalamin (Vitamin B-12) [B-12] 1,000 mcg PO DAILY 09/25/19 Docusate Sodium [Colace 100 mg Capsule] 100 mg PO DAILYP PRN 09/25/19 Latanoprost [Xalatan 0.005% Oph Soln 2.5 ml] 1 drop OP QHS 09/25/19 Metoprolol Tartrate [Lopressor 25 mg Tablet] 12.5 mg PO Q12 09/25/19 Pantoprazole Sodium [Protonix [address] Tablet] 40 mg PO QAM 09/25/19 Risperidone [Risperdal 1 mg Tablet] 1 mg PO QHS 09/25/19 Sertraline HCl 25 mg PO DAILY 09/25/19 History of Present Illiness History of Present Illness: MOON RIDER is a 83 year old female 83-year-old white female with progressive right knee pain and function disability second osteoarthritis. Patient is admitted for elective right knee arthroplasty. Hospital Course Hospital Course: Patient is admitted through the operating where she undergoes uncomplicated right knee arthroplasty. She was returned to the floor in satisfactory condition. She makes progress with physical therapy and the day of surgery. Compressive wrap was removed on the first postoperative morning by myself. Underlying OpSite dressing is clean dry and intact. Physical Exam Vital Signs: Temp Pulse Resp BP Pulse Ox 36.7 C 102 H 18 121/67 90 L 09/25/19 23:29 09/25/19 23:29 09/25/19 23:29 09/25/19 23:29 09/25/19 23:29 Intake & Output 09/25/19 09/26/19 09/27/19 06:59 06:59 06:59 Intake Total 1805 Output Total 30 Balance 1775 Weight 75.4 kg General appearance: PRESENT: no acute distress, mild distress Head exam: PRESENT: normocephalic Respiratory exam: PRESENT: unlabored Cardiovascular exam: PRESENT: RRR GI/Abdominal exam: PRESENT: soft Rectal exam: PRESENT: deferred Results Laboratory Results: WBC 5.8 10^3/uL (4.0-10.5) 09/26/19 06:10 RBC 3.46 10^6/uL (3.72-5.28) L 09/26/19 06:10 Hgb 10.1 g/dL (12.0-15.5) L 09/26/19 06:10 Hct 31.1 % (36.0-47.0) L 09/26/19 06:10 MCV 90 fl (80-97) 09/26/19 06:10 MCH 29.3 pg (27.0-33.4) 09/26/19 06:10 MCHC 32.5 g/dL (32.0-36.0) 09/26/19 06:10 RDW 16.2 % (11.5-14.0) H 09/26/19 06:10 Plt Count 117 10^3/uL (150-450) L 09/26/19 06:10 Potassium 4.5 mmol/L (3.6-5.0) 09/25/19 08:33 Glucose 133 mg/dL (75-110) H 09/25/19 08:33 POC Glucose 218 mg/dL (70-110) H 09/26/19 05:58 COVID-19 Source NASOPHARYNGEAL 09/21/19 12:26 COVID-19 (KIMBERLY) NOT DETECTED 09/21/19 12:26 Impressions: Knee X-Ray 09/25/19 10:25 IMPRESSION: SATISFACTORY POSTOPERATIVE RIGHT KNEE. Plan Plan of Treatment: Weightbearing as tolerated ambulation. Social work to arrange for DME and home health services. Follow-up Dr. Dickey and [facility] for surgery in 2 weeks for staple removal. Stroke Is this a Stroke Patient?: No Stroke Pt being discharged on Anti-thrombolytic therapy?: Yes Acute Heart Failure - Is this a Heart Failure Patient?: No
[2019-09-26 07:45] LABS: ANION GAP 8 (5-19); BLOOD UREA NITROGEN 25 mg/dL (7-20); CARBON DIOXIDE 26 mmol/L (22-30); CHLORIDE 102 mmol/L (98-107); GLUCOSE 181 mg/dL (75-110); POTASSIUM 4.5 mmol/L (3.6-5.0)
[2019-09-26] MEDS: INSULIN LISPRO 100 UNIT/ML 3 ML VIAL SUBCUT SCH ×2 (07:45→14:18)
[2019-09-26] MEDS ORDERED: METFORMIN HCL 500 MG TABLET PO SCH (08:00)
[2019-09-26 08:33] VITALS: BP 93/50
[2019-09-26] MEDS ORDERED: (PENDING PHARMACY ID) (Potassium Chloride [Klor-Con M20] 20 MEQ) PO SCH (10:00)
[2019-09-26] MEDS ORDERED: PRENATAL VITAMIN W DHA CAPSULE PO SCH (10:00)
[2019-09-26] MEDS ORDERED: POTASSIUM CHLORIDE 10 MEQ TABLET.ER PO SCH (10:00)
[2019-09-26] MEDS ORDERED: (PENDING PHARMACY ID) (Tiotropium Bromide [Spiriva Handihaler 5 Cap/Kit (18 Mcg/Cap)] 1 PU IH SCH (10:00)
[2019-09-26] MEDS ORDERED: INSULIN GLARGINE,HUM.REC.ANLOG 1,000 UNIT/10 ML VIAL SUBCUT SCH ×2 (10:00)
[2019-09-26] MEDS ORDERED: (PENDING PHARMACY ID) (Pravastatin Sodium [Pravachol] 40 MG) PO SCH (10:00)
[2019-09-26] MEDS ORDERED: UMECLIDINIUM BROMIDE 62.5 MCG/DOSE IH SCH (10:00)
[2019-09-26] MEDS ORDERED: SERTRALINE HCL 50 MG TABLET PO SCH (10:00)
[2019-09-26] MEDS ORDERED: FUROSEMIDE 40 MG TABLET PO SCH (10:00)
[2019-09-26] MEDS ORDERED: ASPIRIN 81 MG TABLET, ENT COATED PO SCH (10:00)
[2019-09-26] MEDS: SENNOSIDES/DOCUSATE 8.6-50 MG 1 EACH TABLET PO SCH (11:08)
[2019-09-26] MEDS: DABIGATRAN ETEXILATE 150 MG CAPSULE PO SCH (11:08)
[2019-09-26] MEDS: BUSPIRONE HCL 10 MG TABLET PO SCH (11:08)
[2019-09-26] MEDS: METOPROLOL SUCCINATE 25 MG TAB.SR.24H PO SCH (11:09)
[2019-09-26] MEDS: MAGNESIUM OXIDE 400 MG TABLET PO SCH (11:09)
[2019-10-01] MEDS ORDERED: ERGOCALCIFEROL (VITAMIN D2) 50000 UNIT (1.25 MG) CAPSULE PO SCH (10:00)
== END 2019-09-26 15:00 | disposition home health service (06) | DRG 470 ==
LOC: INOR 06:44 → 4W 11:43
PROVIDERS: ADMIT Orthopaedic Surgery; ATTEND Orthopaedic Surgery
PROC: 0SRC0J9 Replacement of Right Knee Joint with Synthetic Substitute, Cemented, Open Approach (ICD-10-PCS; principal; 2019-09-25 09:00)
DX: M17.11 Unilateral primary osteoarthritis, right knee (principal); I48.91 Unspecified atrial fibrillation; E11.9 Type 2 diabetes mellitus without complications; J44.9 Chronic obstructive pulmonary disease, unspecified; I10 Essential (primary) hypertension; E78.00 Pure hypercholesterolemia, unspecified; F41.8 Other specified anxiety disorders; Z79.84 Long term (current) use of oral hypoglycemic drugs; Z79.82 Long term (current) use of aspirin; Z79.4 Long term (current) use of insulin; Z79.51 Long term (current) use of inhaled steroids; Z79.52 Long term (current) use of systemic steroids; Z79.899 Other long term (current) drug therapy; Z20.828 Contact with and (suspected) exposure to other viral communicable diseases
CPT/HCPCS: 01402; 36415; 80048; 82947; 82962; 84132; 85027; 87635; 88305; 88311; 94799; C1713; C1776; C9803; J0690; J1741; J1815; J2250; J2405; J2704; J3010; J3370; J3490; J7050; J7060

== ENCOUNTER 2019-09-29 13:22 | Inpatient (IN) | payer MEDICARE, MEDICAID ==
--- NOTE | 2019-09-29 13:55 | ER Document Report ---
ED Medical Screen (RME) - General Chief Complaint: Altered Mental Status Stated Complaint: ALTERED MENTAL STATUS Time Seen by Provider: 09/29/19 13:49 Primary Care Provider: ANDI PINEDA MD [Primary Care Provider] - Follow up as needed Mode of Arrival: Medic Information source: Patient Notes: 83-year-old female presented to ED for altered mental status. Her daughter is at the bedside. She states that the patient had knee surgery on Wednesday with Dr. Dickey she came home on Wednesday and fell Wednesday. She states the daughter had to call EMS to get her up when she fell on Wednesday and then Wednesday the home health nurse told the daughter to get her up and elevate her legs and the daughter was not able to get her back to bed so she had to call EMS to get her back to bed. Daughter states she has been more more confused ever since then she is not eating or drinking since the surgery and coming home. She states the confusion is getting much worse each day. We will get x-rays of both knees the one that was surgically repaired and the other 1 as they are both swollen will get a head CT for the increase in altered mental status and do labs and urine. Patient will be seen by another provider. I have greeted and performed a rapid initial assessment of this patient. A comprehensive ED assessment and evaluation of the patient, analysis of test res ults and completion of medical decision making process will be conducted by an additional ED providers. TRAVEL OUTSIDE OF THE [place] IN LAST 30 DAYS: No - Related Data Allergies/Adverse Reactions: Penicillins Allergy (Verified 09/25/19 07:02) Past Medical History - Past Medical History Cardiac Medical History: Reports: Hx Coronary Artery Disease, Hx Hypertension, Hx Heart Murmur Denies: Hx Atrial Fibrillation, Hx Congestive Heart Failure, Hx Heart Attack, Hx Hypercholesterolemia, Hx Peripheral Vascular Disease Pulmonary Medical History: Reports: Hx Asthma, Hx COPD Endocrine Medical History: Reports: Hx Diabetes Mellitus Type 2. Denies: Hx Graves' Disease, Hx Hyperthyroidism, Hx Hypothyroidism Renal/ Medical History: Denies: Hx Peritoneal Dialysis Malignancy Medical History: Denies: Hx Leukemia GI Medical History: Musculoskeltal Medical History: Reports Hx Arthritis, Denies Hx Fibromyalgia, Denies Hx Muscular Dystrophy, Denies Hx Systemic Lupus Erythematosus Psychiatric Medical History: Reports: Hx Depression Traumatic Medical History: Denies: Hx Fractures Infectious Medical History: Denies: Hx HIV Past Surgical History: Reports: Hx Cardiac Catheterization - double bipass, Hx Hysterectomy, Hx Tonsillectomy, Other - Coronary artery bypass graft. Denies: Hx Appendectomy, Hx Bowel Surgery, Hx Section, Hx Cholecystectomy, Hx Coronary Artery Bypass Graft, Hx Gastric Bypass Surgery, Hx Herniorrhaphy, Hx Mastectomy, Hx Pacemaker, Hx Tubal Ligation Doctor's Discharge - Discharge Referrals: ANDI PINEDA MD [Primary Care Provider] - Follow up as needed
[2019-09-29 14:18] LABS: ALBUMIN 3.8 g/dL (3.5-5.0); ALKALINE PHOSPHATASE 87 U/L (38-126); ANION GAP 10 (5-19); ASPARTATE AMINO TRANSFERASE 53 U/L (14-36); BILIRUBIN,DIRECT 0.6 mg/dL (0.0-0.4); BILIRUBIN,TOTAL 1.2 mg/dL (0.2-1.3); BLOOD UREA NITROGEN 63 mg/dL (7-20); CARBON DIOXIDE 24 mmol/L (22-30); CHLORIDE 103 mmol/L (98-107); CREATINE KINASE 52 U/L (30-135); GLUCOSE 120 mg/dL (75-110); POTASSIUM 5.7 mmol/L (3.6-5.0)
[2019-09-29 14:20] LABS: ABSOLUTE LYMPHOCYTES (AUTO) 0.9 10^3/uL (0.5-4.7); ABSOLUTE MONOCYTES (AUTO) 0.4 10^3/uL (0.1-1.4); ABSOLUTE NEUT (AUTO) 4.4 10^3/uL (1.7-8.2); BASOPHILS % (AUTO) 0.3 % (0-2); EOSINOPHILS % (AUTO) 0.1 % (0-6); HEMATOCRIT 31.1 % (36.0-47.0); LYMPHOCYTES % (AUTO) 15.4 % (13-45); MEAN CORPUSCULAR HEMOGLOBIN 29.1 pg (27.0-33.4); MEAN CORPUSCULAR HGB CONC 32.2 g/dL (32.0-36.0); MEAN CORPUSCULAR VOLUME 90 fl (80-97); MONOCYTES % (AUTO) 7.1 % (3-13); PLATELET COUNT 191 10^3/uL (150-450); RED BLOOD COUNT 3.44 10^6/uL (3.72-5.28); RED CELL DISTRIBUTION WIDTH 16.5 % (11.5-14.0); SEGMENTED NEUTROPHILS % (AUTO) 77.1 % (42-78); TOTAL CELLS COUNTED % (AUTO) 100 %; WHITE BLOOD COUNT 5.7 10^3/uL (4.0-10.5)
[2019-09-29] MEDS ORDERED: NORMAL SALINE 1000 ML 1,000 ML IV ONE (14:26)
--- NOTE | 2019-09-29 14:42 | ER Document Report ---
ED Dizziness/Weakness - General Chief Complaint: Altered Mental Status Stated Complaint: ALTERED MENTAL STATUS Time Seen by Provider: 09/29/19 13:49 Mode of Arrival: Medic Notes: Patient is an 83-year-old female who presents to the emergency department with altered mental status, as per the daughter. Patient had a knee replacement 4 days ago. Daughter states that the patient has had progressively worsening symptoms of confusion and not acting her normal self. Daughter states that the patient has not been eating or drinking enough since surgery. Patient has a history of atrial fibrillation. TRAVEL OUTSIDE OF THE [place] IN LAST 30 DAYS: No - Related Data Allergies/Adverse Reactions: Penicillins Allergy (Verified 09/25/19 07:02) Past Medical History - General Information source: Patient - Social History Smoking Status: Unknown if Ever Smoked Family History: Reviewed & Not Pertinent, DM - Past Medical History Cardiac Medical History: Reports: Hx Coronary Artery Disease, Hx Hypertension, Hx Heart Murmur Denies: Hx Atrial Fibrillation, Hx Congestive Heart Failure, Hx Heart Attack, Hx Hypercholesterolemia, Hx Peripheral Vascular Disease Pulmonary Medical History: Reports: Hx Asthma, Hx COPD Endocrine Medical History: Reports: Hx Diabetes Mellitus Type 2. Denies: Hx Graves' Disease, Hx Hyperthyroidism, Hx Hypothyroidism Renal/ Medical History: Denies: Hx Peritoneal Dialysis Malignancy Medical History: Denies: Hx Leukemia GI Medical History: Musculoskeletal Medical History: Reports Hx Arthritis, Denies Hx Fibromyalgia, Denies Hx Muscular Dystrophy, Denies Hx Systemic Lupus Erythematosus Psychiatric Medical History: Reports: Hx Depression Traumatic Medical History: Denies: Hx Fractures Infectious Medical History: Denies: Hx HIV Past Surgical History: Reports: Hx Cardiac Catheterization - double bipass, Hx Hysterectomy, Hx Tonsillectomy, Other - Coronary artery bypass graft. Denies: Hx Appendectomy, Hx Bowel Surgery, Hx Section, Hx Cholecystectomy, Hx Coronary Artery Bypass Graft, Hx Gastric Bypass Surgery, Hx Herniorrhaphy, Hx Mastectomy, Hx Pacemaker, Hx Tubal Ligation Review of Systems - Review of Systems Notes: See HPI from daughter. -: Yes ROS unobtainable due to patient's medical condition Physical Exam - Vital signs Vitals: Pulse Ox 88 L 09/29/19 13:29 - Notes Notes: PHYSICAL EXAMINATION: GENERAL: Appears chronically ill, well-nourished, no acute distress. HEAD: Normocephalic, atraumatic. EYES: PERRL, conjunctiva normal, all extraocular movements intact, sclera nonicteric ENT: Moist mucous membranes. NECK: Supple, no noticeable swelling, redness, rash. Normal range of motion. LUNGS: Equal breath sounds bilaterally and clear to auscultation. No wheezes rales or rhonchi. CARDIOVASCULAR: S1-S2, regular rate, regular rhythm. Radial pulses 2+, normal. ABDOMEN: Normoactive bowel sounds. Soft, nontender, no guarding, no rebound tenderness, and no masses palpated. EXTREMITIES: Decreased ROM to R knee from surgery; NEUROLOGICAL: Tenderness noted to right knee at incision site. PSYCH: Normal mood, normal affect. SKIN: Warm, dry. No rash, lesions, ulcerations noted. Normal skin turgor. Tanmay noted to right knee. Course - Re-evaluation Re-evalutation: 09/29/19 16:[address] Dickey, the surgeon who performed the patient's right knee arthroplasty. Discussed this case. Will also call the hospitalist for admission. I also reevaluated the patient and the patient does have a little more distention to her abdomen. We will send her for CT of the abdomen and pelvis without contrast. Hemoglobin is 10.0, which has not changed from her previous visit. Blood gases unremarkable other than a base excess of -2.4, suggestive of dehydration. Chemistries show potassium of 5.7. Patient is to receive IV fluids to correct this. Patient has an acute kidney injury. On September 25, her creatinine was 0.95 and now her creatinine is 2.06. This is consistent with the daughter stating that the patient has not been eating or drinking well. Troponin is indeterminate, but the patient denies any chest pain. Lactic acid is 1.3. Ammonia level is not detectable. CT of the head shows chronic changes. Orders for Delcid catheter placed. We will send urine for culture. Chest x-ray shows cardiomegaly and vascular congestion, similar to her last chest x-ray. 09/29/19 16:[address] Hager, the hospitalist. Patient will be admitted to the telemetry floor. - Vital Signs Vital signs: Temp Pulse Resp BP Pulse Ox 98.7 F 92 18 128/81 H 99 09/29/19 18:36 09/29/19 18:36 09/29/19 18:36 09/29/19 15:00 09/29/19 18:36 - Laboratory Result Diagrams: 09/29/19 13:40 09/29/19 13:40 Laboratory results interpreted by me: 09/29/19 09/29/19 09/29/19 13:40 13:40 15:04 RBC 3.44 L Hgb 10.0 L Hct 31.1 L RDW 16.5 H Potassium 5.7 H BUN 63 H Creatinine 2.06 H Est GFR ( Amer) 28 L Est GFR (MDRD) Non-Af 23 L Glucose 120 H Direct Bilirubin 0.6 H AST 53 H Ammonia < 8.7 L Urine Protein Urine Blood Urine Nitrite Ur Leukocyte Esterase 09/29/19 16:15 RBC Hgb Hct RDW Potassium BUN Creatinine Est GFR ( Amer) Est GFR (MDRD) Non-Af Glucose Direct Bilirubin AST Ammonia Urine Protein 30 H Urine Blood MODERATE H Urine Nitrite POSITIVE H Ur Leukocyte Esterase LARGE H Discharge - Discharge Clinical Impression: Dehydration Altered mental status Qualifiers: Altered mental status type: unspecified Qualified Code(s): R41.82 - Altered mental status, unspecified Condition: Stable Disposition: ADMITTED INPATIENT Admitting Provider: Alley (Hospitalist) Unit Admitted: Telemetry
--- NOTE | 2019-09-29 14:54 | RADIOLOGY REPORT (SQ) ---
EXAM DESCRIPTION: CT HEAD WITHOUT IMAGES COMPLETED DATE/TIME: 09/29/2019 2:45 pm REASON FOR STUDY: altered mental status fall pain COMPARISON: 12/15/2017 TECHNIQUE: Axial images acquired through the brain without intravenous contrast. Images reviewed wi th bone, brain and subdural windows. Additional sagittal and coronal reconstructions were generated. Images stored on PACS. All CT scanners at this facility use dose modulation, iterative reconstruction, and/or weight based d osing when appropriate to reduce radiation dose to as low as reasonably achievable (ALARA). [facility]: Dose Right [facility]: CareDose [facility]: Dose Right [facility]: Teradose 4D [facility]: Zykis RADIATION DOSE: CT Rad equipment meets quality standard of care and radiation dose reduction techniq ues were employed. CTDIvol: 53.2 mGy. DLP: 1017 mGy-cm. mGy. LIMITATIONS: None. FINDINGS: VENTRICLES: Prominent. CEREBRUM: No masses. No hemorrhage. No midline shift. Areas of low density in the white matter mos t likely due to chronic micro-vascular ischemic change. No evidence for acute infarction. CEREBELLUM: No masses. No hemorrhage. No alteration of density. No evidence for acute infarction. EXTRAAXIAL SPACES: Mild age-related involutional change. No fluid collections. No masses. ORBITS AND GLOBE: No intra- or extraconal masses. Normal contour of globe without masses. CALVARIUM: No fracture. PARANASAL SINUSES: No fluid or mucosal thickening. SOFT TISSUES: No mass or hematoma. OTHER: No other significant finding. IMPRESSION: MILD CHRONIC CHANGES OF ATROPHY AND MICROVASCULAR ISCHEMIA. NO ACUTE PROCESS. EVIDENCE OF ACUTE STROKE: NO. TECHNICAL DOCUMENTATION: JOB ID: [id number] Quality ID # [id number]: Final reports with documentation of one or more dose reduction techniques (e.g., Au tomated exposure control, adjustment of the mA and/or kV according to patient size, use of iterative reconstruction technique) 2010 [employer]- All Rights Reserved Reading location - IP/workstation name: [email or web address]
[2019-09-29 15:25] LABS: VENOUS BLOOD BASE EXCESS -2.4 mmol/L; VENOUS BLOOD HCO3 24.7 mmol/L (20-32); VENOUS BLOOD PCO2 51.5 mmHg (35-63); VENOUS BLOOD PH 7.3 (7.30-7.42)
--- NOTE | 2019-09-29 15:28 | RADIOLOGY REPORT (SQ) ---
EXAM DESCRIPTION: KNEE LEFT 2 VIEWS IMAGES COMPLETED DATE/TIME: 09/29/2019 3:14 pm REASON FOR STUDY: AMS left knee pain COMPARISON: None. NUMBER OF VIEWS: Two views. TECHNIQUE: AP and lateral radiographic images acquired of the left knee. LIMITATIONS: None. FINDINGS: MINERALIZATION: Normal. BONES: No acute fracture dislocation. JOINT: Prior total arthroplasty. No effusion. SOFT TISSUES: Soft tissue edema. OTHER: No other significant finding. IMPRESSION: Postsurgical changes with prior total arthroplasty. Soft tissue edema. No acute bony f indings. TECHNICAL DOCUMENTATION: JOB ID: [id number] 2010 [employer]- All Rights Reserved Reading location - IP/workstation name: [email or web address]
--- NOTE | 2019-09-29 15:30 | RADIOLOGY REPORT (SQ) ---
EXAM DESCRIPTION: KNEE RIGHT 2 VIEWS IMAGES COMPLETED DATE/TIME: 09/29/2019 3:14 pm REASON FOR STUDY: AMS right knee pain COMPARISON: 09/25/2019 NUMBER OF VIEWS: Two views. TECHNIQUE: AP and lateral radiographic images acquired of the right knee. LIMITATIONS: None. FINDINGS: MINERALIZATION: Normal. BONES: No acute fracture or dislocation. No worrisome bone lesions. JOINT: Recent total knee arthroplasty. No effusion. SOFT TISSUES: Mild soft tissue edema. OTHER: No other significant finding. IMPRESSION: Recent right knee total arthroplasty. Mild soft tissue edema. No other significant fin dings. TECHNICAL DOCUMENTATION: JOB ID: [id number] 2010 [employer]- All Rights Reserved Reading location - IP/workstation name: [email or web address]
--- NOTE | 2019-09-29 15:31 | RADIOLOGY REPORT (SQ) ---
EXAM DESCRIPTION: CHEST 2 VIEWS IMAGES COMPLETED DATE/TIME: 09/29/2019 3:14 pm REASON FOR STUDY: altered mental status COMPARISON: 08/29/2019 EXAM PARAMETERS: NUMBER OF VIEWS: two views TECHNIQUE: Digital Frontal and Lateral radiographic views of the chest acquired. RADIATION DOSE: NA LIMITATIONS: none FINDINGS: LUNGS AND PLEURA: Bilateral interstitial airspace disease most marked in the bases in martha hilar distribution. MEDIASTINUM AND HILAR STRUCTURES: No masses or contour abnormalities. HEART AND VASCULAR STRUCTURES: Cardiomegaly with central vascular prominence. BONES: No acute findings. HARDWARE: Sternotomy wires are in place. OTHER: No other significant finding. IMPRESSION: Cardiomegaly and vascular congestion. Similar findings were noted on prior study. TECHNICAL DOCUMENTATION: JOB ID: [id number] 2010 [employer]- All Rights Reserved Reading location - IP/workstation name: [email or web address]
--- NOTE | 2019-09-29 16:35 | EKG REPORT ---
SEVERITY:- ABNORMAL ECG - ATRIAL FIBRILLATION RBBB AND LPFB : Confirmed by: Jam Huang MD 29-Sep-2019 16:33:19
[2019-09-29] MEDS ORDERED: MAGNESIUM HYDROXIDE SUSP 30 ML UDCUP PO PRN (16:48)
[2019-09-29] MEDS ORDERED: RINGERS SOLUTION,LACTATED 1,000 ML IV PRN (16:48)
[2019-09-29] MEDS ORDERED: ONDANSETRON HCL INJ/PF 4 MG/2 ML SDV IV PRN (16:48)
[2019-09-29] MEDS ORDERED: MAG HYDROX/AL HYDROX/SIMETH SUSP 30 ML UDCUP PO PRN (16:48)
[2019-09-29] MEDS ORDERED: SODIUM POLYSTYRENE SULFONATE 15 GM/60 ML PO ONE (16:51)
[2019-09-29] MEDS ORDERED: CALCIUM GLUCONATE 1000 MG/10 ML INJ IV ONE (16:51)
[2019-09-29 16:56] LABS: AMORPHOUS SEDIMENT,URINE TRACE /HPF; APPEARANCE,URINE CLOUDY; BILIRUBIN,URINE NEGATIVE (NEGATIVE); COLOR,URINE YELLOW; GLUCOSE, URINE NEGATIVE (NEGATIVE); KETONES,URINE NEGATIVE (NEGATIVE); LEUKOCYTE ESTERASE,URINE LARGE (NEGATIVE); NITRITE,URINE POSITIVE (NEGATIVE); PROTEIN,URINE 30 mg/dL (NEGATIVE); URINE SPECIFIC GRAVITY 1.012; UROBILINOGEN,URINE NEGATIVE mg/dL (<2.0)
--- NOTE | 2019-09-29 17:21 | RADIOLOGY REPORT (SQ) ---
EXAM DESCRIPTION: CT CHEST WITHOUT IMAGES COMPLETED DATE/TIME: 09/29/2019 5:04 pm REASON FOR STUDY: CHEST CONGESTION COMPARISON: None. TECHNIQUE: CT scan performed of the chest without intravenous contrast. Images reviewed with lung, soft tissue and bone windows. Reconstructed coronal and sagittal MPR images reviewed. All images st ored on PACS. All CT scanners at this facility use dose modulation, iterative reconstruction, and/or weight based d osing when appropriate to reduce radiation dose to as low as reasonably achievable (ALARA). [facility]: Dose Right [facility]: CareDose [facility]: Dose Right [facility]: Teradose 4D [facility]: [employer] RADIATION DOSE: CT Rad equipment meets quality standard of care and radiation dose reduction techniq ues were employed. CTDIvol: 17.2 mGy. DLP: 1145 mGy-cm. mGy. LIMITATIONS: No technical limitations. FINDINGS: LUNGS AND PLEURA: Minimal ground-glass infiltrates in the upper lobes. There is pulmonary vascular congestion. HILAR AND MEDIASTINAL STRUCTURES: No identified masses or abnormal nodes. No obvious aneurysm. HEART AND VASCULAR STRUCTURES: No aneurysm. No pericardial effusion. Cardiomegaly. UPPER ABDOMEN: See separate report of the CT of the abdomen. THYROID AND OTHER SOFT TISSUES: No masses. No adenopathy. BONES: No significant finding. HARDWARE: Sternotomy wires. OTHER: No other significant findings. IMPRESSION: Cardiomegaly with pulmonary vascular congestion and minimal ground-glass infiltrates lik ana maria representing mild interstitial edema. No other significant finding. TECHNICAL DOCUMENTATION: JOB ID: [id number] Quality ID # [id number]: Final reports with documentation of one or more dose reduction techniques (e.g., Au tomated exposure control, adjustment of the mA and/or kV according to patient size, use of iterative reconstruction technique) 2010 [employer]- All Rights Reserved Reading location - IP/workstation name: [email or web address]
--- NOTE | 2019-09-29 17:29 | RADIOLOGY REPORT (SQ) ---
EXAM DESCRIPTION: CT ABD/PELVIS NO ORAL OR IV IMAGES COMPLETED DATE/TIME: 09/29/2019 5:03 pm REASON FOR STUDY: abdominal distension COMPARISON: 08/17/2017 TECHNIQUE: CT scan of the abdomen and pelvis performed without intravenous or oral contrast. Images reviewed with lung, soft tissue, and bone windows. Reconstructed coronal and sagittal MPR images revi ewed. All images stored on PACS. All CT scanners at this facility use dose modulation, iterative reconstruction, and/or weight based d osing when appropriate to reduce radiation dose to as low as reasonably achievable (ALARA). [facility]: Dose Right [facility]: CareDose [facility]: Dose Right [facility]: Teradose 4D [facility]: [employer] RADIATION DOSE: mGy. LIMITATIONS: None. FINDINGS: LOWER CHEST: See separate report of the CT of the chest. NON-CONTRASTED LIVER, SPLEEN, ADRENALS: Evaluation limited by lack of IV contrast. No identified sign ificant masses. PANCREAS: No masses. No peripancreatic inflammatory changes. GALLBLADDER: No identified stones by CT criteria. No inflammatory changes to suggest cholecystitis. RIGHT KIDNEY AND URETER: There is some dense material in the gallbladder, likely representing tiny ga llstones. No significant calcifications. No hydronephrosis or hydroureter. LEFT KIDNEY AND URETER: No suspicious masses. Assessment limited by lack of IV contrast. No signifi cant calcifications. No hydronephrosis or hydroureter. AORTA AND RETROPERITONEUM: No aneurysm. No retroperitoneal masses or adenopathy. BOWEL AND PERITONEAL CAVITY: No obvious bowel mass. Sigmoid diverticulosis with no acute inflammatio n. There is moderate ascites. APPENDIX: Not identified. PELVIS, BLADDER, AND ABDOMINAL WALL:No abnormal masses. Small amount of free fluid. Bladder normal. BONES: No significant findings. OTHER: No other significant finding. IMPRESSION: Ascites. Cholelithiasis. Diverticulosis coli. COMMENT: Quality ID # [id number]: Final reports with documentation of one or more dose reduction techniques (e.g., Automated exposure control, adjustment of the mA and/or kV according to patient size, use of iterative reconstruction technique) TECHNICAL DOCUMENTATION: JOB ID: [id number] 2010 [email or web address]- All Rights Reserved Reading location - IP/workstation name: [email or web address]
[2019-09-29] MEDS ORDERED: HALOPERIDOL LACTATE INJ 5 MG/1 ML VIAL ONE (18:51)
[2019-09-29] MEDS ORDERED: HALOPERIDOL LACTATE INJ 5 MG/1 ML VIAL IV ONE (19:15)
[2019-09-29] MEDS: HEPARIN SOD (PORCINE) 5,000 UNIT/ML 1 ML VIAL SUBCUT SCH (22:00)
[2019-09-29] MEDS: FAMOTIDINE 20 MG TABLET PO SCH (22:00)
[2019-09-30] MEDS: HEPARIN SOD (PORCINE) 5,000 UNIT/ML 1 ML VIAL SUBCUT SCH (06:16)
[2019-09-30 06:30] LABS: ALBUMIN 3.3 g/dL (3.5-5.0); ALKALINE PHOSPHATASE 77 U/L (38-126); ANION GAP 11 (5-19); ASPARTATE AMINO TRANSFERASE 40 U/L (14-36); BILIRUBIN,DIRECT 0.6 mg/dL (0.0-0.4); BILIRUBIN,TOTAL 1.3 mg/dL (0.2-1.3); BLOOD UREA NITROGEN 54 mg/dL (7-20); CALCIUM 9.1 mg/dL (8.4-10.2); CARBON DIOXIDE 22 mmol/L (22-30); CHLORIDE 106 mmol/L (98-107); GLUCOSE 125 mg/dL (75-110); PHOSPHORUS 3.8 mg/dL (2.5-4.5); POTASSIUM 4.9 mmol/L (3.6-5.0); TOTAL PROTEIN 6.4 g/dL (6.3-8.2)
[2019-09-30] MEDS ORDERED: CARBOXYMETHYLCELLULOSE SOD 0.5% 0.4 ML DROPERETTE OU PRN (08:41)
[2019-09-30] MEDS ORDERED: DEXTROSE 40% GEL 15 GM TUBE PO PRN ×2 (08:43)
[2019-09-30] MEDS ORDERED: DEXTROSE 50%-WATER 25 GM/50 ML DISP.SYRIN IV PRN ×2 (08:43)
[2019-09-30] MEDS ORDERED: GLUCAGON,HUMAN RECOMB 1 MG INJ IM PRN (08:43)
[2019-09-30] MEDS ORDERED: METOPROLOL TARTRATE 25 MG TABLET PO SCH (10:00)
[2019-09-30] MEDS ORDERED: INSULIN GLARGINE,HUM.REC.ANLOG 1,000 UNIT/10 ML VIAL (PYX) SUBCUT ONE (10:00)
[2019-09-30] MEDS: CYANOCOBALAMIN (VITAMIN B-12) 1,000 MCG TABLET PO SCH (10:36)
[2019-09-30] MEDS: DOCUSATE SODIUM 100 MG CAPSULE PO SCH (10:36)
[2019-09-30] MEDS: ASPIRIN 81 MG TABLET, ENT COATED PO SCH (10:36)
[2019-09-30] MEDS: DABIGATRAN ETEXILATE 150 MG CAPSULE PO SCH ×2 (10:36→21:03)
[2019-09-30] MEDS: FAMOTIDINE 20 MG TABLET PO SCH ×2 (10:36→21:03)
[2019-09-30] MEDS: SERTRALINE HCL 50 MG TABLET PO SCH (10:36)
[2019-09-30] MEDS: BUSPIRONE HCL 10 MG TABLET PO SCH ×2 (10:36→17:03)
[2019-09-30] MEDS: INSULIN LISPRO 100 UNIT/ML 3 ML VIAL SUBCUT SCH ×3 (11:57→21:15)
[2019-09-30] MEDS: CEFAZOLIN 1 GM/D5W RTU 1 GM/50 ML RTUPB IV SCH ×3 (12:33→23:07)
--- NOTE | 2019-09-30 14:58 | PDOC H&P ---
History of Present Illness Admission Date/PCP: 09/29/19 16:58 ANDI PINEDA MD History of Present Illness: MOON RIDER is a 83 year old female past medical history of COPD, CAD, A. fib, diabetes, hypothyroidism, arthritis, depression, dementia, status post right knee arthroplasty 4 days prior to admission, as per daughter who is the source of history patient has been more altered since the surgery, has been refusing food and water, and is more confused than usual, at baseline patient has dementia and is alert and oriented x2 however since surgery patient has been more confused and agitated. One day after surgery patient had a mechanical fall did not sustain any trauma, patient also noted to be incontinent since being altered, otherwise patient has not had any fever, chills, nausea, vomiting, diarrhea. Patient has been constipated for the last several days. Past Medical History Cardiac Medical History: Reports: Coronary Artery Disease, Hypertension, Heart Murmur Denies: Atrial Fibrillation, Congestive Heart Failure, Myocardial Infarction, Hyperlipidema, Peripheral Vascular Disease Pulmonary Medical History: Reports: Asthma, Chronic Obstructive Pulmonary Disease (COPD) Endocrine Medical History: Reports: Diabetes Mellitus Type 2 Denies: Hyperthyroidism, Hypothyroidism Malignancy Medical History: Denies: Leukemia GI Medical History: Musculoskeltal Medical History: Reports: Arthritis Denies: Fibromyalgia Psychiatric Medical History: Reports: Depression Hematology: Denies: Anemia, Hemophilia, Sickle Cell Disease Infectious Medical History: Denies: HIV Past Surgical History Past Surgical History: Reports: Cardiac Catheterization - double bipass, Hysterectomy, Tonsillectomy, Other - Coronary artery bypass graft Denies: Amputation, Appendectomy, Section, Cholecystectomy, Coronary Artery Bypass Graft, Gastric Bypass Surgery, Herniorrhaphy, Mastectomy, Pacemaker, Tubal Ligation Social History Smoking Status: Unknown if Ever Smoked Frequency of Alcohol Use: Occasional Hx Recreational Drug Use: Yes Drugs: None Family History Family History: Reviewed & Not Pertinent, DM Parental Family History Reviewed: Yes Children Family History Reviewed: Yes Sibling(s) Family History Reviewed.: Yes Medication/Allergy Home Medications: Albuterol Sulfate [Proair HFA Inhalation Aerosol 8.5 gm MDI] 2 puff IH Q6HP PRN 08/17/17 Aspirin [Ecotrin 81 mg EC Tablet] 81 mg PO DAILY 08/17/17 Bimatoprost [Lumigan 0.01% Oph Soln 2.5 ml/Bottle] 1 drop OU QHS 08/17/17 Carboxymethylcellulose Sodium [Refresh Tears] 1 drop OU DAILYP PRN 08/17/17 Dabigatran Etexilate Mesylate [Pradaxa] 150 mg PO Q12 08/17/17 Ergocalciferol (Vitamin D2) [Drisdol 50,000 unit (1.25MG) Capsule] 50,000 unit PO CLARK@1000 08/17/17 Furosemide [Lasix 40 mg Tablet] 40 mg PO DAILY 08/17/17 Insulin Glargine,Hum.rec.anlog [Lantus Insulin 100 Unit/mL Insulin Pen] 40 units SQ DAILY 08/17/17 Levothyroxine Sodium [Synthroid 0.05 mg Tablet] 0.05 mg PO Q6AM 08/17/17 Magnesium Oxide [Mag-Ox 400 mg Tablet] 400 mg PO Q12 08/17/17 Metformin HCl [Glucophage] 1,000 mg PO BIDBS 08/17/17 Ondansetron HCl [Zofran 4 mg Tablet] 4 mg PO Q8HP PRN 08/17/17 Potassium Chloride [Klor-Con M20] 20 meq PO DAILY 08/17/17 Pravastatin Sodium [Pravachol] 40 mg PO DAILY 08/17/17 Sertraline HCl [Zoloft] 100 mg PO DAILY 08/17/17 Tiotropium [place] [Spiriva Handihaler 5 Cap/Kit (18 Mcg/Cap)] 1 puff IH DAILY 08/17/17 Tramadol HCl [Ultram 50 mg Tablet] 50 mg PO Q8HP PRN 08/17/17 Acetaminophen [Acetaminophen Extra Strength] 500 mg PO Q6HP PRN 09/25/19 Albuterol Sulfate [Ventolin 0.083% Neb 2.5 mg/3 ml Ampul] 1 vial NEB RTTIDP PRN 09/25/19 Buspirone HCl [Buspar 10 mg Tablet] 5 mg PO BID 09/25/19 Cyanocobalamin (Vitamin B-12) [B-12] 1,000 mcg PO DAILY 09/25/19 Docusate Sodium [Colace 100 mg Capsule] 100 mg PO DAILYP PRN 09/25/19 Latanoprost [Xalatan 0.005% Oph Soln 2.5 ml] 1 drop OP QHS 09/25/19 Metoprolol Tartrate [Lopressor 25 mg Tablet] 12.5 mg PO Q12 09/25/19 Pantoprazole Sodium [Protonix [address] Tablet] 40 mg PO QAM 09/25/19 Risperidone [Risperdal 1 mg Tablet] 1 mg PO QHS 09/25/19 Sertraline HCl 25 mg PO DAILY 09/25/19 Oxycodone HCl [Oxy-Ir 5 mg Tablet] 5 mg PO Q6HP PRN 09/29/19 Allergies/Adverse Reactions: Penicillins Allergy (Verified 09/25/19 07:02) Review of Systems ROS unobtainable: Due to mental status Physical Exam Vital Signs: Temp Pulse Resp BP Pulse Ox 13 128/81 H 99 09/29/19 15:01 09/29/19 15:00 09/29/19 15:01 Intake & Output 09/28/19 09/29/19 09/30/19 06:59 06:59 06:59 Intake Total 1000 Balance 1000 Weight 84.7 kg General appearance: PRESENT: no acute distress, obese, well-developed, well-nourished Respiratory exam: PRESENT: clear to auscultation molly. ABSENT: rales, rhonchi, wheezes Cardiovascular exam: PRESENT: RRR. ABSENT: diastolic murmur, rubs, systolic murmur GI/Abdominal exam: PRESENT: normal bowel sounds, soft. ABSENT: distended, guarding, mass, organolmegaly, rebound, tenderness Musculoskeletal exam: PRESENT: other - Right knee status post arthroplasty, wound looks clean, no sign of discharge or erythema. Neurovascularly intact. Neurological exam: PRESENT: alert, awake, CN II-XII grossly intact. ABSENT: motor sensory deficit Results Laboratory Results: 09/29/19 13:40 09/29/19 13:40 09/29/19 09/29/19 09/29/19 13:40 13:40 13:40 WBC 5.7 RBC 3.44 L Hgb 10.0 L Hct 31.1 L MCV 90 MCH 29.1 MCHC 32.2 RDW 16.5 H Plt Count 191 Seg Neutrophils % 77.1 VBG pH 7.30 VBG pCO2 51.5 VBG HCO3 24.7 VBG Base Excess -2.4 Sodium 137.2 Potassium 5.7 H Chloride 103 Carbon Dioxide 24 Anion Gap 10 BUN 63 H Creatinine 2.06 H Est GFR ( Amer) 28 L Glucose 120 H Lactic Acid Calcium 9.0 Total Bilirubin 1.2 AST 53 H Alkaline Phosphatase 87 Ammonia Total Protein 7.0 Albumin 3.8 Urine Color Urine Appearance Urine pH Ur Specific [place] Urine Protein Urine Glucose (UA) Urine Ketones Urine Blood Urine Nitrite Ur Leukocyte Esterase Urine WBC (Auto) Urine RBC (Auto) 09/29/19 09/29/19 09/29/19 13:40 15:04 16:15 WBC RBC Hgb Hct MCV MCH MCHC RDW Plt Count Seg Neutrophils % VBG pH VBG pCO2 VBG HCO3 VBG Base Excess Sodium Potassium Chloride Carbon Dioxide Anion Gap BUN Creatinine Est GFR ( Amer) Glucose Lactic Acid 1.3 Calcium Total Bilirubin AST Alkaline Phosphatase Ammonia < 8.7 L Total Protein Albumin Urine Color YELLOW Urine Appearance CLOUDY Urine pH 5.0 Ur Specific [place] 1.012 Urine Protein 30 H Urine Glucose (UA) NEGATIVE Urine Ketones NEGATIVE Urine Blood MODERATE H Urine Nitrite POSITIVE H Ur Leukocyte Esterase LARGE H Urine WBC (Auto) 87 Urine RBC (Auto) 6 09/29/19 09/29/19 13:40 13:40 Creatine Kinase 52 Troponin I 0.019 Impressions: Chest X-Ray 09/29/19 13:50 IMPRESSION: Cardiomegaly and vascular congestion. Similar findings were noted on prior study. Head CT 09/29/19 13:51 IMPRESSION: MILD CHRONIC CHANGES OF ATROPHY AND MICROVASCULAR ISCHEMIA. NO ACUTE PROCESS. EVIDENCE OF ACUTE STROKE: NO. Assessment and Plan - Diagnosis (1) ELGIN (acute kidney injury) Is this a current diagnosis for this admission?: Yes Plan: Prerenal most likely due to low p.o. intake. Admit to telemetry, cautious polymerization guided by volume status, strict in and out, monitor electrolytes and replace as needed. Avoid nephrotoxic meds. (2) UTI (urinary tract infection) Qualifiers: Urinary tract infection type: acute cystitis Is this a current diagnosis for this admission?: Yes Plan: Likely due to gram-negative rods including E. coli. Empiric IV antibiotic. Urine culture. CT abdomen pelvis negative for pyelonephritis. (3) Acute metabolic encephalopathy Is this a current diagnosis for this admission?: Yes Plan: Acute metabolic encephalopathy likely due to UTI and ELGIN. At baseline patient has dementia is alerted x2. CT head negative for any acute abnormalities. CT abdomen and pelvis negative for any acute abnormalities. UA positive for leukocyte esterase. Admit to telemetry, fall, seizure and aspiration precaution. Treat underlying UTI and ELGIN. (4) A-fib Qualifiers: Atrial fibrillation type: longstanding persistent Qualified Code(s): I48.11 - Longstanding persistent atrial fibrillation Is this a current diagnosis for this admission?: Yes Plan: History of longstanding persistent A. fib. On beta-blockers and chronic anticoagulation. Admit to telemetry, resume home meds. Outpatient PCP and cardiology follow-up. (5) COPD (chronic obstructive pulmonary disease) Qualifiers: COPD type: chronic bronchitis Is this a current diagnosis for this admission?: Yes Plan: Does not appear to be acutely exacerbated. Resume home meds. PRN duo nebs and supplemental oxygen. (6) Coronary artery disease Is this a current diagnosis for this admission?: Yes Plan: Denies any anginal symptoms. Mildly elevated troponin likely due to ELGIN. Resume home meds. Outpatient PCP and cardiology follow-up. (7) Hypothyroidism (acquired) Is this a current diagnosis for this admission?: Yes Plan: Resume home meds. - Time Time Spent with patient: 35 or more minutes Medications reviewed and adjusted accordingly: Yes Anticipated Discharge Disposition: Custodial Facility Anticipated Discharge Timeframe: when bed available
--- NOTE | 2019-09-30 19:14 | PDOC PROGRESS REPORT ---
Subjective Progress Note for:: 09/30/19 Subjective:: Patient has no complaint today. Got a little agitated earlier. Reason For Visit: AMS,ELGIN Physical Exam Vital Signs: Temp Pulse Resp BP Pulse Ox 98.9 F 110 H 16 153/88 H 92 09/30/19 07:00 09/30/19 09:40 09/30/19 09:40 09/30/19 07:00 09/30/19 09:40 Intake & Output 09/29/19 09/30/19 10/01/19 06:59 06:59 06:59 Intake Total 1000 1125 Output Total 750 400 Balance 250 725 Weight 84.2 kg General appearance: PRESENT: no acute distress, cooperative Neck exam: ABSENT: JVD Respiratory exam: PRESENT: clear to auscultation molly Cardiovascular exam: PRESENT: +S1, +S2. ABSENT: tachycardia GI/Abdominal exam: PRESENT: soft. ABSENT: rebound, rigid, tenderness Neurological exam: PRESENT: alert, awake, oriented to person. ABSENT: oriented to place, oriented to time, oriented to situation Results Laboratory Results: 09/29/19 13:40 09/30/19 05:37 09/30/19 05:37 Sodium 139.2 Potassium 4.9 Chloride 106 Carbon Dioxide 22 Anion Gap 11 BUN 54 H Creatinine 1.41 H Est GFR ( Amer) 43 L Glucose 125 H Calcium 9.1 Phosphorus 3.8 Magnesium 2.4 H Total Bilirubin 1.3 AST 40 H Alkaline Phosphatase 77 Total Protein 6.4 Albumin 3.3 L 09/29/19 09/29/19 13:40 13:40 Creatine Kinase 52 Troponin I 0.019 Impressions: Chest X-Ray 09/29/19 13:50 IMPRESSION: Cardiomegaly and vascular congestion. Similar findings were noted on prior study. Head CT 09/29/19 13:51 IMPRESSION: MILD CHRONIC CHANGES OF ATROPHY AND MICROVASCULAR ISCHEMIA. NO ACUTE PROCESS. EVIDENCE OF ACUTE STROKE: NO. Chest CT 09/29/19 16:01 IMPRESSION: Cardiomegaly with pulmonary vascular congestion and minimal ground- glass infiltrates likely representing mild interstitial edema. No other sig nificant finding. Abdomen/Pelvis CT 09/29/19 16:04 IMPRESSION: Ascites. Cholelithiasis. Diverticulosis coli. Assessment and Plan - Diagnosis (1) Acute metabolic encephalopathy Is this a current diagnosis for this admission?: Yes (2) ELGIN (acute kidney injury) Is this a current diagnosis for this admission?: Yes (3) Type 2 diabetes mellitus Is this a current diagnosis for this admission?: Yes (4) UTI (urinary tract infection) Qualifiers: Urinary tract infection type: acute cystitis Is this a current diagnosis for this admission?: Yes (5) Paroxysmal atrial fibrillation Is this a current diagnosis for this admission?: Yes - Plan Summary Summary: Redirection for patient's encephalopathy Cefazolin for treatment of patient's UTI. Follow-up urine culture. Continue Lopressor and Pradaxa treatment of A. fib. Currently sinus tach. Renal function looks better. We will continue to monitor. IV fluids. - Time Time Spent with patient: Less than 15 minutes Anticipated Discharge Disposition: Home, Self Care Anticipated Discharge Timeframe: within 36 hours
[2019-09-30] MEDS: RINGERS SOLUTION,LACTATED 1,000 ML IV PRN (19:50)
[2019-09-30] MEDS: OXYCODONE HCL IR 5 MG TABLET PO PRN (20:08)
[2019-09-30] MEDS: RISPERIDONE 1 MG TABLET PO SCH (21:03)
[2019-09-30] MEDS: METOPROLOL TARTRATE 25 MG TABLET PO SCH (21:03)
[2019-09-30] MEDS: LATANOPROST 0.005% OPH SOLN 2.5 ML OP SCH (21:04)
[2019-09-30] MEDS: LATANOPROST 0.005% OPH SOLN 2.5 ML OU SCH (21:04)
[2019-09-30] MEDS ORDERED: (PENDING PHARMACY ID) (Bimatoprost [Lumigan 0.01% Oph Soln 2.5 Ml/Bottle] 1 DROP) OU SCH (22:00)
[2019-10-01] MEDS ORDERED: LORAZEPAM INJ 2 MG/1 ML VIAL ONE (01:12)
[2019-10-01] MEDS ORDERED: LORAZEPAM INJ 2 MG/1 ML VIAL IV ONE (01:30)
[2019-10-01 05:39] LABS: ANION GAP 9 (5-19); BLOOD UREA NITROGEN 41 mg/dL (7-20); CALCIUM 8.9 mg/dL (8.4-10.2); CARBON DIOXIDE 25 mmol/L (22-30); CHLORIDE 109 mmol/L (98-107); GLUCOSE 141 mg/dL (75-110)
[2019-10-01 05:52] LABS: POTASSIUM 3.7 mmol/L (3.6-5.0)
[2019-10-01] MEDS: CEFAZOLIN 1 GM/D5W RTU 1 GM/50 ML RTUPB IV SCH ×3 (06:29→18:17)
[2019-10-01] MEDS: RINGERS SOLUTION,LACTATED 1,000 ML IV PRN (06:36)
[2019-10-01] MEDS: INSULIN LISPRO 100 UNIT/ML 3 ML VIAL SUBCUT SCH ×4 (07:14→21:49)
[2019-10-01] MEDS: LEVOTHYROXINE SODIUM 0.05 MG TABLET PO SCH (08:45)
[2019-10-01] MEDS: PANTOPRAZOLE SODIUM 40 MG TABLET.DR PO SCH (08:46)
[2019-10-01] MEDS: INSULIN GLARGINE,HUM.REC.ANLOG 1,000 UNIT/10 ML VIAL SUBCUT SCH (11:05)
[2019-10-01] MEDS: SERTRALINE HCL 50 MG TABLET PO SCH (11:13)
[2019-10-01] MEDS: BUSPIRONE HCL 10 MG TABLET PO SCH ×2 (11:16→18:15)
[2019-10-01] MEDS: DOCUSATE SODIUM 100 MG CAPSULE PO SCH (11:18)
[2019-10-01] MEDS: FAMOTIDINE 20 MG TABLET PO SCH ×2 (11:18→21:51)
[2019-10-01] MEDS: ASPIRIN 81 MG TABLET, ENT COATED PO SCH (11:18)
[2019-10-01] MEDS: ERGOCALCIFEROL (VITAMIN D2) 50000 UNIT (1.25 MG) CAPSULE PO SCH (11:19)
[2019-10-01] MEDS: CYANOCOBALAMIN (VITAMIN B-12) 1,000 MCG TABLET PO SCH (11:19)
[2019-10-01] MEDS: METOPROLOL TARTRATE 25 MG TABLET PO SCH ×2 (11:20→21:52)
[2019-10-01] MEDS: DABIGATRAN ETEXILATE 150 MG CAPSULE PO SCH ×2 (11:20→21:50)
[2019-10-01] MEDS: TRAMADOL HCL 50 MG TABLET PO PRN (12:11)
[2019-10-01] MEDS: RISPERIDONE 1 MG TABLET PO SCH ×2 (14:42→21:50)
[2019-10-01] MEDS ORDERED: RISPERIDONE 0.25 MG TABLET PO PRN (14:55)
--- NOTE | 2019-10-01 15:18 | PDOC PROGRESS REPORT ---
Subjective Progress Note for:: 10/01/19 Subjective:: Patient received Ativan this morning and as result was too somnolent to participate in conversation this morning. Later during the day, she had woke up and got agitated. Reason For Visit: AMS,ELGIN Physical Exam Vital Signs: Temp Pulse Resp BP Pulse Ox 97.3 F 79 18 148/82 H 100 10/01/19 12:00 10/01/19 14:27 10/01/19 14:27 10/01/19 12:00 10/01/19 14:27 Intake & Output 09/30/19 10/01/19 10/02/19 06:59 06:59 06:59 Intake Total 1000 2575 338 Output Total 750 570 Balance 250 2005 338 Weight 84.2 kg 84 kg General appearance: PRESENT: no acute distress, cooperative Neck exam: ABSENT: JVD Respiratory exam: PRESENT: clear to auscultation molly, unlabored. ABSENT: tachypnea, wheezes Cardiovascular exam: PRESENT: +S1, +S2. ABSENT: tachycardia GI/Abdominal exam: PRESENT: soft. ABSENT: rebound, rigid, tenderness Neurological exam: ABSENT: alert, awake Results Laboratory Results: 09/29/19 13:40 10/01/19 04:43 10/01/19 04:43 Sodium 142.5 Potassium 3.7 D Chloride 109 H Carbon Dioxide 25 Anion Gap 9 BUN 41 H Creatinine 0.88 Est GFR ( Amer) > 60 Glucose 141 H Calcium 8.9 09/29/19 16:15 Catheterized Urine Urine Culture - Final Klebsiella Pneumoniae 09/29/19 09/29/19 13:40 13:40 Creatine Kinase 52 Troponin I 0.019 Impressions: Chest X-Ray 09/29/19 13:50 IMPRESSION: Cardiomegaly and vascular congestion. Similar findings were noted on prior study. Head CT 09/29/19 13:51 IMPRESSION: MILD CHRONIC CHANGES OF ATROPHY AND MICROVASCULAR ISCHEMIA. NO ACUTE PROCESS. EVIDENCE OF ACUTE STROKE: NO. Chest CT 09/29/19 16:01 IMPRESSION: Cardiomegaly with pulmonary vascular congestion and minimal ground- glass infiltrates likely representing mild interstitial edema. No other significant finding. Abdomen/Pelvis CT 09/29/19 16:04 IMPRESSION: Ascites. Cholelithiasis. Diverticulosis coli. Assessment and Plan - Diagnosis (1) Acute metabolic encephalopathy Is this a current diagnosis for this admission?: Yes Plan: I discussed with patient's daughter who informs me that patient is being worked up for dementia and at baseline, she is usually alert and oriented x2, able to have conversation but very forgetful and often does remember what she was told. Also occasionally has hallucinations and delusions. Since knee arthroplasty, patient has been having more vivid agitation episodes where she is seen calling for her dad. Based of conversation with daughter, it seems patient clearly has dementia with episodes of delirium. Takes risperidone 0.5 mg in a.m. and 1 mg nightly. We will have 0.25 mg ordered as needed for agitation. Redirection and reorientation as needed, and pain control to help with delirium episodes. Avoid benzos. (2) ELGIN (acute kidney injury) Is this a current diagnosis for this admission?: Yes Plan: Prerenal most likely due to low p.o. intake. Creatinine has normalized following IV fluid hydration. Will discontinue IV fluids at this time. Continue to monitor renal function. Encourage p.o. fluid intake. (3) UTI (urinary tract infection) Qualifiers: Urinary tract infection type: acute cystitis Hematuria presence: with hematuria Qualified Code(s): N30.01 - Acute cystitis with hematuria Is this a current diagnosis for this admission?: Yes (4) History of arthroplasty of right knee Is this a current diagnosis for this admission?: Yes Plan: Experienced significant ambulatory dysfunction since having right knee arthroplasty by Dr. Dickey on 09/25/2019. Daughter is unable to care for patient and help patient get around in this condition given her own limitations. X-rays on admission were unremarkable. Pain control. Physical therapy. Social work consulted for placement at SNF. Daughter is agreeable to plan. (5) Type 2 diabetes mellitus Is this a current diagnosis for this admission?: Yes Plan: Home regimen of Lantus 40 units daily and metformin twice daily. Currently not eating much so we will place on Lantus 20 units daily only. Sliding scale coverage and Accu-Cheks. (6) Paroxysmal atrial fibrillation Is this a current diagnosis for this admission?: Yes Plan: On Lopressor and Pradaxa (7) Cardiomyopathy Qualifiers: Cardiomyopathy type: unspecified Qualified Code(s): I42.9 - Cardiomyopathy, unspecified Is this a current diagnosis for this admission?: Yes Plan: Seems to have history of LV dysfunction with EF of 35 to 40% on TTE in 2018. Currently not in heart failure. Heart rate dehydrated on presentation. Hold Lasix. - Time Time Spent with patient: Less than 15 minutes Anticipated Discharge Disposition: [facility] Facility Anticipated Discharge Timeframe: within 36 hours
[2019-10-01] MEDS: MELATONIN 3 MG TABLET PO SCH (21:50)
[2019-10-01] MEDS: OXYCODONE HCL IR 5 MG TABLET PO PRN (21:51)
[2019-10-01] MEDS: LATANOPROST 0.005% OPH SOLN 2.5 ML OP SCH (21:53)
[2019-10-01] MEDS: LATANOPROST 0.005% OPH SOLN 2.5 ML OU SCH (21:56)
[2019-10-02] MEDS: CEFAZOLIN 1 GM/D5W RTU 1 GM/50 ML RTUPB IV SCH ×4 (00:40→17:43)
[2019-10-02] MEDS: TRAMADOL HCL 50 MG TABLET PO PRN (05:56)
[2019-10-02] MEDS: LEVOTHYROXINE SODIUM 0.05 MG TABLET PO SCH (05:56)
[2019-10-02] MEDS: INSULIN LISPRO 100 UNIT/ML 3 ML VIAL SUBCUT SCH ×3 (07:26→17:38)
[2019-10-02 07:32] LABS: ANION GAP 8 (5-19); BLOOD UREA NITROGEN 30 mg/dL (7-20); CARBON DIOXIDE 25 mmol/L (22-30); CHLORIDE 107 mmol/L (98-107); GLUCOSE 154 mg/dL (75-110); POTASSIUM 3.6 mmol/L (3.6-5.0)
[2019-10-02] MEDS: PANTOPRAZOLE SODIUM 40 MG TABLET.DR PO SCH (09:07)
[2019-10-02] MEDS ORDERED: MORPHINE SULFATE 10 MG/ML INJ IV ONE (10:00)
[2019-10-02] MEDS: INSULIN GLARGINE,HUM.REC.ANLOG 1,000 UNIT/10 ML VIAL SUBCUT SCH (11:02)
[2019-10-02] MEDS: ASPIRIN 81 MG TABLET, ENT COATED PO SCH (11:28)
[2019-10-02] MEDS: METOPROLOL TARTRATE 25 MG TABLET PO SCH (11:28)
[2019-10-02] MEDS: BUSPIRONE HCL 10 MG TABLET PO SCH ×2 (11:28→17:12)
[2019-10-02] MEDS: DOCUSATE SODIUM 100 MG CAPSULE PO SCH (11:28)
[2019-10-02] MEDS: SERTRALINE HCL 50 MG TABLET PO SCH (11:29)
[2019-10-02] MEDS: DABIGATRAN ETEXILATE 150 MG CAPSULE PO SCH (11:29)
[2019-10-02] MEDS: CYANOCOBALAMIN (VITAMIN B-12) 1,000 MCG TABLET PO SCH (11:29)
[2019-10-02] MEDS: RISPERIDONE 1 MG TABLET PO SCH (11:29)
[2019-10-02] MEDS: FAMOTIDINE 20 MG TABLET PO SCH (11:29)
[2019-10-02] MEDS ORDERED: ACETAMINOPHEN 650 MG SUPP.RECT PR PRN (14:06)
--- NOTE | 2019-10-02 14:16 | PDOC PROGRESS REPORT ---
Subjective Progress Note for:: 10/02/19 Subjective:: Patient laying in bed this morning yelling for her dad and asking her dad to " bring her blood pressure down". Very delirious and likely hallucinating. Not really responding to my questions. Informed by nurse that patient frequently refuses to take her medications as she is not cooperative. Reason For Visit: AMS,ELGIN Physical Exam Vital Signs: Temp Pulse Resp BP Pulse Ox 98.1 F 82 22 H 136/75 H 96 10/02/19 12:40 10/02/19 12:40 10/02/19 12:40 10/02/19 12:40 10/02/19 12:40 Intake & Output 10/01/19 10/02/19 10/03/19 06:59 06:59 06:59 Intake Total 2575 558 100 Output Total 570 500 Balance 2004 58 100 Weight 84 kg 86.3 kg General appearance: PRESENT: mild distress. ABSENT: cooperative Head exam: PRESENT: normocephalic Neck exam: ABSENT: JVD Respiratory exam: PRESENT: clear to auscultation molly, symmetrical, unlabored. ABSENT: tachypnea, wheezes Cardiovascular exam: PRESENT: +S1, +S2. ABSENT: tachycardia GI/Abdominal exam: PRESENT: soft. ABSENT: rebound, rigid, tenderness Extremities exam: PRESENT: other - Bruising over right knee with incision scar. On palpation does not seem to be significantly tender Neurological exam: PRESENT: altered, awake Psychiatric exam: PRESENT: agitated, anxious, unusual affect. ABSENT: appropriate affect Focused psych exam: PRESENT: delusional, internal stimuli, restlessness Skin exam: ABSENT: jaundice Results Laboratory Results: 09/29/19 13:40 10/02/19 06:36 10/02/19 06:36 Sodium 140.3 Potassium 3.6 Chloride 107 Carbon Dioxide 25 Anion Gap 8 BUN 30 H Creatinine 0.62 Est GFR ( Amer) > 60 Glucose 154 H Calcium 9.0 09/29/19 09/29/19 13:40 13:40 Creatine Kinase 52 Troponin I 0.019 Impressions: Chest X-Ray 09/29/19 13:50 IMPRESSION: Cardiomegaly and vascular congestion. Similar findings were noted on prior study. Head CT 09/29/19 13:51 IMPRESSION: MILD CHRONIC CHANGES OF ATROPHY AND MICROVASCULAR ISCHEMIA. NO ACUTE PROCESS. EVIDENCE OF ACUTE STROKE: NO. Chest CT 09/29/19 16:01 IMPRESSION: Cardiomegaly with pulmonary vascular congestion and minimal ground- glass infiltrates likely representing mild interstitial edema. No other significant finding. Abdomen/Pelvis CT 09/29/19 16:04 IMPRESSION: Ascites. Cholelithiasis. Diverticulosis coli. Assessment and Plan - Diagnosis (1) Acute metabolic encephalopathy Is this a current diagnosis for this admission?: Yes Plan: At this point, I believe her encephalopathy secondary to delirium superimposed on dementia. No improvement in mental status with treatment of UTI, IV hydration, resolution of ELGIN. Check TSH. (2) Delirium superimposed on dementia Is this a current diagnosis for this admission?: Yes Plan: I discussed with patient's daughter who informs me that patient is being worked up for dementia and at baseline, she is usually alert and oriented x2, able to have conversation but very forgetful and often does remember what she was told. Also occasionally has hallucinations and delusions. Since knee arthroplasty, patient has been having more vivid hallucination episodes where she is seen calling for her dad. Based of conversation with daughter, it seems patient clearly has dementia with episodes of delirium. Takes risperidone 0.5 mg in a.m. and 1 mg nightly. Redirection and reorientation as needed, and pain control to help with delirium episodes. Avoid benzos. Psychiatric consulted (3) ELGIN (acute kidney injury) Is this a current diagnosis for this admission?: Yes Plan: Resolved with IV fluid hydration. Off IV fluids since yesterday afternoon. Encourage p.o. fluid intake. (4) UTI (urinary tract infection) Qualifiers: Urinary tract infection type: acute cystitis Hematuria presence: with hematuria Qualified Code(s): N30.01 - Acute cystitis with hematuria Is this a current diagnosis for this admission?: Yes Plan: Likely due to Klebsiella. Continue cefazolin day 3/4. Can always switch to p.o if she is cooperative with taking pills. (5) History of arthroplasty of right knee Is this a current diagnosis for this admission?: Yes Plan: Experienced significant ambulatory dysfunction since having right knee arthroplasty by Dr. Dickey on 09/25/2019. Daughter is unable to care for patient and help patient get around in this condition given her own limitations. X-rays on admission were unremarkable. Pain control. Physical therapy. Social work consulted for placement at SNF. Daughter is agreeable to plan. (6) Type 2 diabetes mellitus Is this a current diagnosis for this admission?: Yes Plan: Home regimen of Lantus 40 units daily and metformin twice daily. Currently not eating much so we will place on Lantus 20 units daily only. Sliding scale coverage and Accu-Cheks. (7) Paroxysmal atrial fibrillation Is this a current diagnosis for this admission?: Yes Plan: On Lopressor and Pradaxa (8) Cardiomyopathy Qualifiers: Cardiomyopathy type: unspecified Qualified Code(s): I42.9 - Cardiomyopathy, unspecified Is this a current diagnosis for this admission?: Yes Plan: Seems to have history of LV dysfunction with EF of 35 to 40% on TTE in 2018. Currently not in heart failure. Actually was dehydrated on presentation and had to be rehydrated. Hold Lasix. - Time Time Spent with patient: 15-24 minutes Anticipated Discharge Disposition: Group Home Facility Anticipated Discharge Timeframe: when bed available
[2019-10-02] MEDS: CLONIDINE 0.1 MG/24 HR PATCH.TDWK TD SCH (16:13)
[2019-10-02] MEDS: HALOPERIDOL LACTATE INJ 5 MG/1 ML VIAL IM PRN (16:18)
[2019-10-02] MEDS: DEXTROSE 5%-NORMAL SALINE 1,000 ML IV PRN (18:24)
--- NOTE | 2019-10-02 19:57 | PSYCHOLOGICAL NOTE ---
Psych Note - Psych Note Date seen by psych provider: 10/02/19 Time seen by psych provider: 11:00 Psych Note: Reason for Consult: Medication recommendations to address behaviours Medication recommendations per [facility]'s contracted psychiatrist Dr Nuzhat GOLDBERG are as follows please decrease home medications of Zoloft to 50mf daily for 5 days then discontinue Please discontinue rispirdone please add Haldol 2.5mg twice daily as needed please add depakote sprinkles 250mg twice daily please decrease home medications of buspar to 5mg twice daily Please add Clonidine transdermal patch 0.1mg In geriatric patient's with moderate to severe dementia there is a higher probability of post-operative cognitive dysfunction which can result in symptoms of delirium up to 10-14 days and 4 to 6 weeks of hallucinations and/or delusions following anesthesia. In rare cases, anesthesia can result in new baselines for this population.
[2019-10-02] MEDS ORDERED: HALOPERIDOL 2 MG TABLET PO SCH (22:00)
[2019-10-03] MEDS: INSULIN LISPRO 100 UNIT/ML 3 ML VIAL SUBCUT SCH ×4 (01:30→17:32)
[2019-10-03] MEDS: TRAMADOL HCL 50 MG TABLET PO PRN (01:36)
[2019-10-03] MEDS: FAMOTIDINE 20 MG TABLET PO SCH ×2 (01:36→11:26)
[2019-10-03] MEDS: METOPROLOL TARTRATE 25 MG TABLET PO SCH ×2 (01:37→11:27)
[2019-10-03] MEDS: DABIGATRAN ETEXILATE 150 MG CAPSULE PO SCH ×2 (01:38→11:29)
[2019-10-03] MEDS: MELATONIN 3 MG TABLET PO SCH (01:38)
[2019-10-03] MEDS: LATANOPROST 0.005% OPH SOLN 2.5 ML OP SCH (01:38)
[2019-10-03] MEDS: LATANOPROST 0.005% OPH SOLN 2.5 ML OU SCH (01:38)
[2019-10-03] MEDS: DIVALPROEX SODIUM 125 MG CAP.SPRINK PO SCH ×2 (01:38→11:28)
[2019-10-03] MEDS: CEFAZOLIN 1 GM/D5W RTU 1 GM/50 ML RTUPB IV SCH ×4 (01:39→17:34)
[2019-10-03] MEDS: HALOPERIDOL LACTATE INJ 5 MG/1 ML VIAL IM PRN (03:56)
[2019-10-03] MEDS: LEVOTHYROXINE SODIUM 0.05 MG TABLET PO SCH (06:11)
[2019-10-03 06:36] LABS: ANION GAP 9 (5-19); BLOOD UREA NITROGEN 24 mg/dL (7-20); CARBON DIOXIDE 27 mmol/L (22-30); CHLORIDE 110 mmol/L (98-107); GLUCOSE 146 mg/dL (75-110); POTASSIUM 3.9 mmol/L (3.6-5.0)
--- NOTE | 2019-10-03 07:06 | PDOC PROGRESS REPORT ---
Subjective Progress Note for:: 10/03/19 Reason For Visit: AMS,ELGIN 83-year-old white female now postop day 8 status post right knee arthroplasty with postoperative complications including renal compromise and mental status changes Physical Exam Vital Signs: Temp Pulse Resp BP Pulse Ox 37.2 C 91 17 139/75 H 95 10/02/19 20:17 10/03/19 02:00 10/02/19 20:17 10/02/19 20:17 10/03/19 05:01 Intake & Output 10/02/19 10/03/19 10/04/19 06:59 06:59 06:59 Intake Total 558 250 Output Total 500 Balance 58 250 Weight 86.3 kg 86.3 kg Musculoskeletal exam: PRESENT: other - Right knee OpSite dressing change. Underlying incision is sealed with trevor and is clean dry and intact. Results Laboratory Results: 09/29/19 13:40 10/03/19 05:38 10/02/19 10/02/19 10/03/19 06:36 06:36 05:38 Sodium 140.3 145.6 H Potassium 3.6 3.9 Chloride 107 110 H Carbon Dioxide 25 27 Anion Gap 8 9 BUN 30 H 24 H Creatinine 0.62 0.53 Est GFR ( Amer) > 60 > 60 Glucose 154 H 146 H Calcium 9.0 9.0 TSH 1.18 09/29/19 09/29/19 13:40 13:40 Creatine Kinase 52 Troponin I 0.019 Impressions: Chest X-Ray 09/29/19 13:50 IMPRESSION: Cardiomegaly and vascular congestion. Similar findings were noted on prior study. Head CT 09/29/19 13:51 IMPRESSION: MILD CHRONIC CHANGES OF ATROPHY AND MICROVASCULAR ISCHEMIA. NO ACUTE PROCESS. EVIDENCE OF ACUTE STROKE: NO. Chest CT 09/29/19 16:01 IMPRESSION: Cardiomegaly with pulmonary vascular congestion and minimal ground- glass infiltrates likely representing mild interstitial edema. No other significant finding. Abdomen/Pelvis CT 09/29/19 16:04 IMPRESSION: Ascites. Cholelithiasis. Diverticulosis coli. Assessment & Plan - Diagnosis (1) History of arthroplasty of right knee Is this a current diagnosis for this admission?: Yes Plan: Mobilize with physical therapy for range of motion and weightbearing as trial ambulation as mental status permits - Time Time Spent with patient: 15-24 minutes Anticipated discharge: Home with Homehealth Anticipated DC Timeframe: Other
--- NOTE | 2019-10-03 09:36 | EKG REPORT ---
SEVERITY:- ABNORMAL ECG - ATRIAL FIBRILLATION RBBB AND LPFB : Confirmed by: Macho Nelson 03-Oct-2019 09:35:37
[2019-10-03] MEDS: CYANOCOBALAMIN (VITAMIN B-12) 1,000 MCG TABLET PO SCH (11:26)
[2019-10-03] MEDS: PANTOPRAZOLE SODIUM 40 MG TABLET.DR PO SCH (11:26)
[2019-10-03] MEDS: ASPIRIN 81 MG TABLET, ENT COATED PO SCH (11:26)
[2019-10-03] MEDS: DOCUSATE SODIUM 100 MG CAPSULE PO SCH (11:26)
[2019-10-03] MEDS: INSULIN GLARGINE,HUM.REC.ANLOG 1,000 UNIT/10 ML VIAL SUBCUT SCH (11:27)
[2019-10-03] MEDS: BUSPIRONE HCL 10 MG TABLET PO SCH ×2 (11:29→17:32)
[2019-10-03] MEDS: SERTRALINE HCL 50 MG TABLET PO SCH (11:29)
--- NOTE | 2019-10-03 16:42 | PDOC PROGRESS REPORT ---
Subjective Progress Note for:: 10/03/19 Subjective:: Patient continues to be delirious status post right knee replacement, psychosocial evaluation revealed she likely has underlying moderate to severe dementia which is high risk to be severely exacerbated in the setting of anesthesia. Per their evaluation, this can last for days to weeks. UTI is being treated, urine culture initially growing Klebsiella pneumoniae. COVID testing is pending. Reason For Visit: AMS,ELGIN Physical Exam Vital Signs: Temp Pulse Resp BP Pulse Ox 98.9 F 92 17 139/75 H 95 10/02/19 20:17 10/03/19 14:00 10/02/19 20:17 10/02/19 20:17 10/03/19 05:01 Intake & Output 10/02/19 10/03/19 10/04/19 06:59 06:59 06:59 Intake Total 558 250 50 Output Total 500 Balance 58 250 50 Weight 86.3 kg 86.3 kg General appearance: PRESENT: no acute distress, obese, well-developed, well-nourished Head exam: PRESENT: atraumatic, normocephalic Eye exam: PRESENT: conjunctiva pink Mouth exam: PRESENT: moist Respiratory exam: PRESENT: clear to auscultation molly. ABSENT: rales, rhonchi, wheezes Cardiovascular exam: PRESENT: RRR. ABSENT: diastolic murmur, rubs, systolic murmur GI/Abdominal exam: PRESENT: normal bowel sounds, soft. ABSENT: distended, guarding, mass, organolmegaly, rebound, tenderness Extremities exam: PRESENT: tenderness - Mild tenderness and edema with postop changes of her right knee, healing Neurological exam: PRESENT: alert, awake. ABSENT: oriented to person, oriented to place, oriented to time, oriented to situation Psychiatric exam: PRESENT: agitated Skin exam: PRESENT: dry, intact, warm Results Laboratory Results: 09/29/19 13:40 10/03/19 05:38 10/03/19 05:38 Sodium 145.6 H Potassium 3.9 Chloride 110 H Carbon Dioxide 27 Anion Gap 9 BUN 24 H Creatinine 0.53 Est GFR ( Amer) > 60 Glucose 146 H Calcium 9.0 09/29/19 09/29/19 13:40 13:40 Creatine Kinase 52 Troponin I 0.019 Impressions: Chest X-Ray 09/29/19 13:50 IMPRESSION: Cardiomegaly and vascular congestion. Similar findings were noted on prior study. Head CT 09/29/19 13:51 IMPRESSION: MILD CHRONIC CHANGES OF ATROPHY AND MICROVASCULAR ISCHEMIA. NO ACUTE PROCESS. EVIDENCE OF ACUTE STROKE: NO. Chest CT 09/29/19 16:01 IMPRESSION: Cardiomegaly with pulmonary vascular congestion and minimal ground- glass infiltrates likely representing mild interstitial edema. No other significant finding. Abdomen/Pelvis CT 09/29/19 16:04 IMPRESSION: Ascites. Cholelithiasis. Diverticulosis coli. Assessment and Plan - Diagnosis (1) Delirium superimposed on dementia Is this a current diagnosis for this admission?: Yes Plan: I discussed with patient's daughter who informs me that patient is being worked up for dementia and at baseline, she is usually alert and oriented x2, able to have conversation but very forgetful and often does remember what she was told. Also occasionally has hallucinations and delusions. Since knee arthroplasty, patient has been having more vivid hallucination episodes where she is seen calling for her dad. Based of conversation with daughter, it seems patient clearly has dementia with episodes of delirium. Takes risperidone 0.5 mg in a.m. and 1 mg nightly. Redirection and reorientation as needed, and pain control to help with delirium episodes. Avoid benzos. Psychiatric consulted 10/03/2019 Psychiatric valuation showed patient has moderate to severe underlying dementia but is high risk to be severely exacerbated after receiving anesthesia for several days up to a few weeks to return to baseline Acute UTI also playing a significant role in agitation, treating underlying source with antibiotics Risperidone continued from home medications which suggest she already has some underlying agitation and behavioral issues (2) Acute metabolic encephalopathy Is this a current diagnosis for this admission?: Yes Plan: Encephalopathy secondary to postanesthesia been UTI delirium superimposed on dementia. No improvement in mental status with treatment of UTI, IV hydration, resolution of ELGIN. Check TSH. (3) History of arthroplasty of right knee Is this a current diagnosis for this admission?: Yes Plan: Experienced significant ambulatory dysfunction since having right knee arthroplasty by Dr. Dickey on 09/25/2019. Daughter is unable to care for patient and help patient get around in this condition given her own limitations. X-rays on admission were unremarkable. Pain control. Physical therapy. Social work consulted for placement at SNF. Daughter is agreeable to plan. 10/02/2021 Orthopedic surgery following Needs placement at SNF, family is agreeable COVID testing pending for SNF placement (4) ELGIN (acute kidney injury) Is this a current diagnosis for this admission?: Yes Plan: Resolved with IV fluid hydration. Off IV fluids. Encourage p.o. fluid intake. (5) Cardiomyopathy Qualifiers: Cardiomyopathy type: unspecified Qualified Code(s): I42.9 - Cardiomyopathy, unspecified Is this a current diagnosis for this admission?: Yes Plan: History of LV dysfunction with EF of 35 to 40% on TTE in 2018. Currently not in heart failure. dehydrated on presentation and had to be rehydrated. Held Lasix. (6) Paroxysmal atrial fibrillation Is this a current diagnosis for this admission?: Yes (7) COPD (chronic obstructive pulmonary disease) Qualifiers: COPD type: chronic bronchitis Is this a current diagnosis for this admission?: Yes Plan: Does not appear to be acutely exacerbated. Resume home meds. PRN duo nebs and supplemental oxygen. (8) Type 2 diabetes mellitus Is this a current diagnosis for this admission?: Yes (9) UTI (urinary tract infection) Qualifiers: Urinary tract infection type: acute cystitis Hematuria presence: with hematuria Qualified Code(s): N30.01 - Acute cystitis with hematuria Is this a current diagnosis for this admission?: Yes Plan: Urine culture growing Klebsiella pneumoniae. cefazolin to complete day four 10/02 - Time Time Spent with patient: 15-24 minutes Medications reviewed and adjusted accordingly: Yes Anticipated Discharge Disposition: Assisted Facility Anticipated Discharge Timeframe: within 48 hours - Inpatient Certification Based on my medical assessment, after consideration of the patient's comorbidities, presenting symptoms, or acuity I expect that the services needed warrant INPATIENT care.: Yes I certify that my determination is in accordance with my understanding of Medicare's requirements for reasonable and necessary INPATIENT services [42 CFR 412.3e].: Yes Medical Necessity: Significant Comorbidiites Make Outpatient Treatment Too Risky, Need Close Monitoring Due to Risk of Patient Decompensation, Need for IV Antibiotics, Risk of Complication if Not Cared For in Hospital, Risk of Diagn osis Which Will Require Inpatient Eval/Care/Monitoring
[2019-10-04] MEDS: CEFAZOLIN 1 GM/D5W RTU 1 GM/50 ML RTUPB IV SCH ×3 (02:14→12:00)
[2019-10-04] MEDS: HALOPERIDOL LACTATE INJ 5 MG/1 ML VIAL IM PRN ×3 (03:01→22:13)
[2019-10-04] MEDS: INSULIN LISPRO 100 UNIT/ML 3 ML VIAL SUBCUT SCH ×5 (03:05→21:12)
[2019-10-04] MEDS: DIVALPROEX SODIUM 125 MG CAP.SPRINK PO SCH ×3 (03:05→21:13)
[2019-10-04] MEDS: DABIGATRAN ETEXILATE 150 MG CAPSULE PO SCH ×3 (03:06→21:13)
[2019-10-04] MEDS: METOPROLOL TARTRATE 25 MG TABLET PO SCH ×3 (03:06→21:13)
[2019-10-04] MEDS: FAMOTIDINE 20 MG TABLET PO SCH ×3 (03:06→21:13)
[2019-10-04] MEDS: MELATONIN 3 MG TABLET PO SCH ×2 (03:06→21:13)
[2019-10-04] MEDS: LATANOPROST 0.005% OPH SOLN 2.5 ML OU SCH ×2 (03:07→21:14)
[2019-10-04] MEDS: LATANOPROST 0.005% OPH SOLN 2.5 ML OP SCH ×2 (03:07→21:14)
[2019-10-04] MEDS: LEVOTHYROXINE SODIUM 0.05 MG TABLET PO SCH (07:01)
[2019-10-04] MEDS: DEXTROSE 5%-NORMAL SALINE 1,000 ML IV PRN (07:02)
[2019-10-04] MEDS: DOCUSATE SODIUM 100 MG CAPSULE PO SCH (09:41)
[2019-10-04] MEDS: PANTOPRAZOLE SODIUM 40 MG TABLET.DR PO SCH (09:41)
[2019-10-04] MEDS: CYANOCOBALAMIN (VITAMIN B-12) 1,000 MCG TABLET PO SCH (09:41)
[2019-10-04] MEDS: BUSPIRONE HCL 10 MG TABLET PO SCH ×2 (09:41→17:50)
[2019-10-04] MEDS: ASPIRIN 81 MG TABLET, ENT COATED PO SCH (09:41)
[2019-10-04] MEDS: SERTRALINE HCL 50 MG TABLET PO SCH (09:41)
[2019-10-04] MEDS: INSULIN GLARGINE,HUM.REC.ANLOG 1,000 UNIT/10 ML VIAL SUBCUT SCH (12:00)
[2019-10-04] MEDS: TRAMADOL HCL 50 MG TABLET PO PRN ×2 (12:01→21:13)
--- NOTE | 2019-10-04 16:45 | PDOC PROGRESS REPORT ---
Subjective Progress Note for:: 10/04/19 Subjective:: Patient continues to be delirious status post right knee replacement, psychosocial evaluation revealed she likely has underlying moderate to severe dementia which is high risk to be severely exacerbated in the setting of anesthesia. Per their evaluation, this can last for days to weeks. UTI is being treated, urine culture initially growing Klebsiella pneumoniae. COVID testing is pending. 10/04/2019 COVID testing has resulted as negative this afternoon. According to social work, nursing facilities are refusing to accept the patient until her behavior is a bit more calm. Patient was yelling a bit intermittently today but much less than yesterday. She was able to carry on a relatively normal conversation with me today and is almost fully oriented knowing who she is, where she is, and the date including the month and year as well as who is the current president. She speaks about a few nonsensical topics but is easily redirected. I think her mentation currently is about as good as it is going to get. She will need extensive rehab given her recent right knee replacement. Patient has completed ceftezole on course for UTI and this can be stopped today. Blood pressure intermittently uncontrolled and given her very high fall risk I am in favor of a conservative approach to blood pressure management. I think an appropriate goal for her would be approximately less than 150/90 given her current risk of falling as well as her age. Patient's only complaint today is that she needed to have a bowel movement and wanted a bedpan. She does have some right knee pain when asked specifically about this but she is not particularly concerned about it. Otherwise no new complaints. Reason For Visit: AMS,ELGIN Physical Exam Vital Signs: Temp Pulse Resp BP Pulse Ox 98.2 F 70 18 113/66 100 10/04/19 15:19 10/04/19 15:19 10/04/19 15:19 10/04/19 15:19 10/04/19 15:19 Intake & Output 10/03/19 10/04/19 10/05/19 06:59 06:59 06:59 Intake Total 250 1390 50 Output Total 200 Balance 250 1190 50 Weight 86.3 kg 86.3 kg General appearance: PRESENT: no acute distress, well-developed, well-nourished Head exam: PRESENT: atraumatic, normocephalic Eye exam: PRESENT: conjunctiva pink. ABSENT: scleral icterus Mouth exam: PRESENT: moist Respiratory exam: PRESENT: clear to auscultation molly. ABSENT: accessory muscle use, rales, rhonchi, wheezes Cardiovascular exam: PRESENT: RRR. ABSENT: diastolic murmur, rubs, systolic murmur GI/Abdominal exam: PRESENT: normal bowel sounds, soft. ABSENT: distended, guarding, mass, organolmegaly, rebound, tenderness Extremities exam: PRESENT: tenderness - Mild right knee tenderness along surgical site, clean and healing Neurological exam: PRESENT: alert, awake, oriented to person, oriented to place, oriented to situation Psychiatric exam: PRESENT: appropriate affect, normal mood Skin exam: PRESENT: dry, intact, warm Results Laboratory Results: 09/29/19 13:40 10/03/19 05:38 09/29/19 13:40 Blood Blood Culture - Final NO GROWTH IN 5 DAYS 09/29/19 13:40 Blood Blood Culture - Final NO GROWTH IN 5 DAYS 09/29/19 09/29/19 13:40 13:40 Creatine Kinase 52 Troponin I 0.019 Impressions: Chest X-Ray 09/29/19 13:50 IMPRESSION: Cardiomegaly and vascular congestion. Similar findings were noted on prior study. Head CT 09/29/19 13:51 IMPRESSION: MILD CHRONIC CHANGES OF ATROPHY AND MICROVASCULAR ISCHEMIA. NO ACUTE PROCESS. EVIDENCE OF ACUTE STROKE: NO. Chest CT 09/29/19 16:01 IMPRESSION: Cardiomegaly with pulmonary vascular congestion and minimal ground- glass infiltrates likely representing mild interstitial edema. No other significant finding. Abdomen/Pelvis CT 09/29/19 16:04 IMPRESSION: Ascites. Cholelithiasis. Diverticulosis coli. Assessment and Plan - Diagnosis (1) Delirium superimposed on dementia Is this a current diagnosis for this admission?: Yes Plan: I discussed with patient's daughter who informs me that patient is being worked up for dementia and at baseline, she is usually alert and oriented x2, able to have conversation but very forgetful and often does remember what she was told. Also occasionally has hallucinations and delusions. Since knee arthroplasty, patient has been having more vivid hallucination episodes where she is seen calling for her dad. Based of conversation with daughter, it seems patient clearly has dementia with episodes of delirium. Takes risperidone 0.5 mg in a.m. and 1 mg nightly. Redirection and reorientation as needed, and pain control to help with delirium episodes. Avoid benzos. Psychiatric consulted 10/03/2019 Psychiatric valuation showed patient has moderate to severe underlying dementia but is high risk to be severely exacerbated after receiving anesthesia for several days up to a few weeks to return to baseline Acute UTI also playing a significant role in agitation, treating underlying source with antibiotics Risperidone continued from home medications which suggest she already has some underlying agitation and behavioral issues 10/04/2019 Rather calm today and able to carry on a normal conversation I suspect she can be discharged to rehab facility when they are willing to accept. Cover test is negative (2) Acute metabolic encephalopathy Is this a current diagnosis for this admission?: Yes Plan: Encephalopathy secondary to postanesthesia been UTI delirium superimposed on dementia. Notable improvement in mental status with treatment of UTI, IV hydration, resolution of ELGIN. Seems to be back to her baseline or very close to it which is not very good to begin with (3) History of arthroplasty of right knee Is this a current diagnosis for this admission?: Yes Plan: Experienced significant ambulatory dysfunction since having right knee arthroplasty by Dr. Dickey on 09/25/2019. Daughter is unable to care for patient and help patient get around in this condition given her own limitations. X-rays on admission were unremarkable. Pain control. Physical therapy. Social work consulted for placement at SNF. Daughter is agreeable to plan. 10/03/2019 Orthopedic surgery following Needs placement at SNF, family is agreeable COVID testing pending for SNF placement 10/04/2019 Cover testing negative, sniffs in area reportedly refusing to take patient until she is calm. She is calm today (4) ELGIN (acute kidney injury) Is this a current diagnosis for this admission?: Yes (5) Cardiomyopathy Qualifiers: Cardiomyopathy type: unspecified Qualified Code(s): I42.9 - Cardiomyopathy, unspecified Is this a current diagnosis for this admission?: Yes (6) Paroxysmal atrial fibrillation Is this a current diagnosis for this admission?: Yes (7) COPD (chronic obstructive pulmonary disease) Qualifiers: COPD type: chronic bronchitis Is this a current diagnosis for this admission?: Yes (8) Type 2 diabetes mellitus Is this a current diagnosis for this admission?: Yes (9) UTI (urinary tract infection) Qualifiers: Urinary tract infection type: acute cystitis Hematuria presence: with hematuria Qualified Code(s): N30.01 - Acute cystitis with hematuria Is this a current diagnosis for this admission?: Yes - Time Time Spent with patient: 15-24 minutes Medications reviewed and adjusted accordingly: Yes Anticipated Discharge Disposition: Halfway Facility Anticipated Discharge Timeframe: within 48 hours - Inpatient Certification Based on my medical assessment, after consideration of the patient's comorbidities, presenting symptoms, or acuity I expect that the services needed warrant INPATIENT care.: Yes I certify that my determination is in accordance with my understanding of Medicare's requirements for reasonable and necessary INPATIENT services [42 CFR 412.3e].: Yes Medical Necessity: Significant Comorbidiites Make Outpatient Treatment Too Risky, Need Close Monitoring Due to Risk of Patient Decompensation, Risk of Complication if Not Cared For in Hospital, Risk of Diagnosis Which Will Require Inpatient Eval/Care/Monitoring
[2019-10-04] MEDS: OXYCODONE HCL IR 5 MG TABLET PO PRN (17:50)
[2019-10-05] MEDS: LEVOTHYROXINE SODIUM 0.05 MG TABLET PO SCH (06:13)
[2019-10-05] MEDS: INSULIN LISPRO 100 UNIT/ML 3 ML VIAL SUBCUT SCH ×4 (11:06→21:11)
[2019-10-05] MEDS: DIVALPROEX SODIUM 125 MG CAP.SPRINK PO SCH ×2 (11:09→21:15)
[2019-10-05] MEDS: PANTOPRAZOLE SODIUM 40 MG TABLET.DR PO SCH (11:09)
[2019-10-05] MEDS: FAMOTIDINE 20 MG TABLET PO SCH ×2 (11:10→21:14)
[2019-10-05] MEDS: SERTRALINE HCL 50 MG TABLET PO SCH (11:10)
[2019-10-05] MEDS: METOPROLOL TARTRATE 25 MG TABLET PO SCH ×2 (11:10→21:14)
[2019-10-05] MEDS: DOCUSATE SODIUM 100 MG CAPSULE PO SCH (11:10)
[2019-10-05] MEDS: CYANOCOBALAMIN (VITAMIN B-12) 1,000 MCG TABLET PO SCH (11:10)
[2019-10-05] MEDS: DABIGATRAN ETEXILATE 150 MG CAPSULE PO SCH ×2 (11:10→21:15)
[2019-10-05] MEDS: BUSPIRONE HCL 10 MG TABLET PO SCH ×2 (11:10→19:02)
[2019-10-05] MEDS: ASPIRIN 81 MG TABLET, ENT COATED PO SCH (11:10)
[2019-10-05] MEDS: INSULIN GLARGINE,HUM.REC.ANLOG 1,000 UNIT/10 ML VIAL SUBCUT SCH (11:11)
[2019-10-05] MEDS: IPRATROPIUM/ALBUTEROL 0.5-2.5 MG/3 ML AMPUL NEB PRN ×2 (11:29→17:22)
--- NOTE | 2019-10-05 13:24 | RADIOLOGY REPORT (SQ) ---
EXAM DESCRIPTION: HIP LEFT AP/LATERAL IMAGES COMPLETED DATE/TIME: 10/05/2019 12:08 pm REASON FOR STUDY: post op pain COMPARISON: None. NUMBER OF VIEWS: Two views. TECHNIQUE: AP and frog-leg view of the left hip. LIMITATIONS: None. FINDINGS: Right total hip arthroplasty. Bones are osteopenic. Advanced osteoarthritis left hip. N o fracture or aggressive bone lesion. IMPRESSION: Advanced osteoarthritis. TECHNICAL DOCUMENTATION: JOB ID: [id number] 2010 [employer]- All Rights Reserved Reading location - IP/workstation name: [email or web address]
[2019-10-05 14:26] LABS: ABSOLUTE BASOPHILS # (AUTO) 0.1 10^3/uL (0.0-0.2); ABSOLUTE EOSINOPHILS # (AUTO) 0.1 10^3/uL (0.0-0.6); ABSOLUTE LYMPHOCYTES (AUTO) 1.3 10^3/uL (0.5-4.7); ABSOLUTE MONOCYTES (AUTO) 0.5 10^3/uL (0.1-1.4); ABSOLUTE NEUT (AUTO) 6.2 10^3/uL (1.7-8.2); BASOPHILS % (AUTO) 1.2 % (0-2); EOSINOPHILS % (AUTO) 1.8 % (0-6); HEMATOCRIT 34.8 % (36.0-47.0); HEMOGLOBIN 11.1 g/dL (12.0-15.5); MEAN CORPUSCULAR HEMOGLOBIN 28.4 pg (27.0-33.4); MEAN CORPUSCULAR HGB CONC 31.8 g/dL (32.0-36.0); MEAN CORPUSCULAR VOLUME 89 fl (80-97); MONOCYTES % (AUTO) 6.3 % (3-13); PLATELET COUNT 204 10^3/uL (150-450); RED CELL DISTRIBUTION WIDTH 16.9 % (11.5-14.0); SEGMENTED NEUTROPHILS % (AUTO) 74.7 % (42-78); TOTAL CELLS COUNTED % (AUTO) 100 %; WHITE BLOOD COUNT 8.3 10^3/uL (4.0-10.5)
[2019-10-05 15:11] LABS: BLOOD UREA NITROGEN 14 mg/dL (7-20); CALCIUM 9.1 mg/dL (8.4-10.2); CARBON DIOXIDE 23 mmol/L (22-30); CHLORIDE 112 mmol/L (98-107); GLUCOSE 97 mg/dL (75-110); POTASSIUM 4.3 mmol/L (3.6-5.0)
[2019-10-05 15:12] LABS: ANION GAP 11 (5-19)
--- NOTE | 2019-10-05 15:38 | PDOC PROGRESS REPORT ---
Subjective Subjective:: Patient continues to be delirious status post right knee replacement, psychosocial evaluation revealed she likely has underlying moderate to severe dementia which is high risk to be severely exacerbated in the setting of anesthesia. Per their evaluation, this can last for days to weeks. UTI is being treated, urine culture initially growing Klebsiella pneumoniae. COVID testing is pending. 10/04/2019 COVID testing has resulted as negative this afternoon. According to social work, nursing facilities are refusing to accept the patient until her behavior is a bit more calm. Patient was yelling a bit intermittently today but much less than yesterday. She was able to carry on a relatively normal conversation with me today and is almost fully oriented knowing who she is, where she is, and the date including the month and year as well as who is the current president. She speaks about a few nonsensical topics but is easily redirected. I think her mentation currently is about as good as it is going to get. She will need extensive rehab given her recent right knee replacement. Patient has completed ceftezole on course for UTI and this can be stopped today. Blood pressure intermittently uncontrolled and given her very high fall risk I am in favor of a conservative approach to blood pressure management. I think an appropriate goal for her would be approximately less than 150/90 given her current risk of falling as well as her age. Patient's only complaint today is that she needed to have a bowel movement and wanted a bedpan. She does have some right knee pain when asked specifically about this but she is not particularly concerned about it. Otherwise no new complaints. 10/05/2019 Patient very calm today and able to carry on a conversation though she is a bit sleepy. Her right knee incision site looks clean and is not very tender today. CBC reviewed and this is stable, BMP is pending. Patient is alert and oriented x3. Patient can go to SNF whenever they would like to take her. For some unknown reason she was placed on supplemental oxygen overnight although she has no history of requiring oxygen supplementation prior to admission but she does have a history of COPD which will make the patient encephalopathic from CO2 retention if we continue giving her oxygen needlessly. I discussed with the nurse the rationale to remove the oxygen as patient's oxygen saturation goal should be 89 to 92% and not any higher than this. Other than mild right knee pain patient does not articulate any other complaints. Reason For Visit: AMS,ELGIN Physical Exam Vital Signs: Temp Pulse Resp BP Pulse Ox 98.6 F 89 19 128/62 H 96 10/05/19 12:00 10/05/19 12:00 10/05/19 12:00 10/05/19 12:00 10/05/19 12:00 Intake & Output 10/04/19 10/05/19 10/06/19 06:59 06:59 06:59 Intake Total 1390 100 Output Total 200 Balance 1190 100 Weight 86.3 kg 83.5 kg General appearance: PRESENT: no acute distress, well-developed, well-nourished Head exam: PRESENT: atraumatic, normocephalic Eye exam: PRESENT: conjunctiva pink Mouth exam: PRESENT: moist Respiratory exam: PRESENT: clear to auscultation molly. ABSENT: rales, rhonchi, wheezes Cardiovascular exam: PRESENT: RRR. ABSENT: diastolic murmur, rubs, systolic murmur GI/Abdominal exam: PRESENT: normal bowel sounds, soft. ABSENT: distended, g uarding, mass, organolmegaly, rebound, tenderness Extremities exam: PRESENT: tenderness - Mild tenderness at right knee incision site, clean and well appearing, healing Neurological exam: PRESENT: alert, awake, oriented to person, oriented to place, oriented to situation. ABSENT: oriented to time Psychiatric exam: PRESENT: appropriate affect, normal mood Skin exam: PRESENT: dry, intact, warm Results Laboratory Results: 10/05/19 13:48 10/05/19 13:48 WBC 8.3 RBC 3.90 Hgb 11.1 L Hct 34.8 L MCV 89 MCH 28.4 MCHC 31.8 L RDW 16.9 H Plt Count 204 Seg Neutrophils % 74.7 09/29/19 13:40 Blood Blood Culture - Final NO GROWTH IN 5 DAYS 09/29/19 13:40 Blood Blood Culture - Final NO GROWTH IN 5 DAYS 09/29/19 09/29/19 13:40 13:40 Creatine Kinase 52 Troponin I 0.019 Impressions: Chest X-Ray 09/29/19 13:50 IMPRESSION: Cardiomegaly and vascular congestion. Similar findings were noted on prior study. Head CT 09/29/19 13:51 IMPRESSION: MILD CHRONIC CHANGES OF ATROPHY AND MICROVASCULAR ISCHEMIA. NO ACUTE PROCESS. EVIDENCE OF ACUTE STROKE: NO. Chest CT 09/29/19 16:01 IMPRESSION: Cardiomegaly with pulmonary vascular congestion and minimal ground- glass infiltrates likely representing mild interstitial edema. No other significant finding. Abdomen/Pelvis CT 09/29/19 16:04 IMPRESSION: Ascites. Cholelithiasis. Diverticulosis coli. Hip X-Ray 10/05/19 00:00 IMPRESSION: Advanced osteoarthritis. Assessment and Plan - Diagnosis (1) Delirium superimposed on dementia Is this a current diagnosis for this admission?: Yes Plan: I discussed with patient's daughter who informs me that patient is being worked up for dementia and at baseline, she is usually alert and oriented x2, able to have conversation but very forgetful and often does remember what she was told. Also occasionally has hallucinations and delusions. Since knee arthroplasty, patient has been having more vivid hallucination episodes where she is seen calling for her dad. Based of conversation with daughter, it seems patient clearly has dementia with episodes of delirium. Takes risperidone 0.5 mg in a.m. and 1 mg nightly. Redirection and reorientation as needed, and pain control to help with delirium episodes. Avoid benzos. Psychiatric consulted 10/03/2019 Psychiatric valuation showed patient has moderate to severe underlying dementia but is high risk to be severely exacerbated after receiving anesthesia for several days up to a few weeks to return to baseline Acute UTI also playing a significant role in agitation, treating underlying source with antibiotics Risperidone continued from home medications which suggest she already has some underlying agitation and behavioral issues 10/04/2019 Rather calm today and able to carry on a normal conversation I suspect she can be discharged to rehab facility when they are willing to accept. Cover test is negative 10/05/2019 Patient continues to be calm and alert and mostly oriented She is a bit more somnolent today and I suspect this is due to excessive oxygen supplementation in the setting of longstanding COPD; oxygen saturation goal is 89 to 92% and COPD patient, discussed with nursing Limit use of sedating medications to a minimum (2) Acute metabolic encephalopathy Is this a current diagnosis for this admission?: Yes Plan: Encephalopathy secondary to postanesthesia been UTI delirium superimposed on dementia. Notable improvement in mental status with treatment of UTI, IV hydration, resolution of ELGIN. Seems to be back to her baseline or very close to it which is mild intermittent confusion at baseline, likely has mild cognitive impairment or early dementia though family states patient is typically fully oriented at home (3) History of arthroplasty of right knee Is this a current diagnosis for this admission?: Yes (4) ELGIN (acute kidney injury) Is this a current diagnosis for this admission?: Yes Plan: Resolved with IV fluid hydration. Off IV fluids. Encourage p.o. fluid intake. (5) Cardiomyopathy Qualifiers: Cardiomyopathy type: unspecified Qualified Code(s): I42.9 - Cardiomyopathy, unspecified Is this a current diagnosis for this admission?: Yes (6) Paroxysmal atrial fibrillation Is this a current diagnosis for this admission?: Yes (7) COPD (chronic obstructive pulmonary disease) Qualifiers: COPD type: chronic bronchitis Is this a current diagnosis for this admission?: Yes Plan: Does not appear to be acutely exacerbated. Resume home meds. PRN duo nebs and supplemental oxygen. In order to avoid CO2 retention, do not supplement oxygen unless saturation is less than 89% or patient is dyspneic (8) Type 2 diabetes mellitus Is this a current diagnosis for this admission?: Yes (9) UTI (urinary tract infection) Qualifiers: Urinary tract infection type: acute cystitis Hematuria presence: with hematuria Qualified Code(s): N30.01 - Acute cystitis with hematuria Is this a current diagnosis for this admission?: Yes - Time Time Spent with patient: 15-24 minutes Anticipated Discharge Disposition: [facility] Facility Anticipated Discharge Timeframe: within 24 hours - Inpatient Certification Based on my medical assessment, after consideration of the patient's comorbidities, presenting symptoms, or acuity I expect that the services needed warrant INPATIENT care.: Yes I certify that my determination is in accordance with my understanding of Medicare's requirements for reasonable and necessary INPATIENT services [42 CFR 412.3e].: Yes Medical Necessity: Significant Comorbidiites Make Outpatient Treatment Too Risky, Need Close Monitoring Due to Risk of Patient Decompensation, Risk of Complication if Not Cared For in Hospital, Risk of Diagnosis Which Will Require Inpatient Eval/Care/Monitoring
[2019-10-05] MEDS: HALOPERIDOL LACTATE INJ 5 MG/1 ML VIAL IM PRN (19:58)
[2019-10-05] MEDS: MELATONIN 3 MG TABLET PO SCH (21:14)
[2019-10-05] MEDS: OXYCODONE HCL IR 5 MG TABLET PO PRN (21:14)
[2019-10-05] MEDS: LATANOPROST 0.005% OPH SOLN 2.5 ML OU SCH (21:16)
[2019-10-05] MEDS: LATANOPROST 0.005% OPH SOLN 2.5 ML OP SCH (21:17)
[2019-10-06] MEDS: TRAMADOL HCL 50 MG TABLET PO PRN (05:15)
[2019-10-06] MEDS: LEVOTHYROXINE SODIUM 0.05 MG TABLET PO SCH (05:16)
[2019-10-06 05:24] LABS: ABSOLUTE EOSINOPHILS # (AUTO) 0.2 10^3/uL (0.0-0.6); ABSOLUTE LYMPHOCYTES (AUTO) 1.2 10^3/uL (0.5-4.7); ABSOLUTE MONOCYTES (AUTO) 0.6 10^3/uL (0.1-1.4); ABSOLUTE NEUT (AUTO) 7.8 10^3/uL (1.7-8.2); BASOPHILS % (AUTO) 0.4 % (0-2); EOSINOPHILS % (AUTO) 1.9 % (0-6); HEMATOCRIT 36.2 % (36.0-47.0); HEMOGLOBIN 11.6 g/dL (12.0-15.5); MEAN CORPUSCULAR HEMOGLOBIN 29.1 pg (27.0-33.4); MEAN CORPUSCULAR HGB CONC 32.1 g/dL (32.0-36.0); MEAN CORPUSCULAR VOLUME 91 fl (80-97); MONOCYTES % (AUTO) 5.8 % (3-13); PLATELET COUNT 221 10^3/uL (150-450); RED BLOOD COUNT 3.99 10^6/uL (3.72-5.28); RED CELL DISTRIBUTION WIDTH 16.9 % (11.5-14.0); SEGMENTED NEUTROPHILS % (AUTO) 79.9 % (42-78); TOTAL CELLS COUNTED % (AUTO) 100 %; WHITE BLOOD COUNT 9.8 10^3/uL (4.0-10.5)
[2019-10-06 05:43] LABS: ANION GAP 7 (5-19); BLOOD UREA NITROGEN 12 mg/dL (7-20); CALCIUM 8.7 mg/dL (8.4-10.2); CARBON DIOXIDE 29 mmol/L (22-30); CHLORIDE 109 mmol/L (98-107); GLUCOSE 73 mg/dL (75-110); POTASSIUM 3.5 mmol/L (3.6-5.0)
[2019-10-06] MEDS: HALOPERIDOL LACTATE INJ 5 MG/1 ML VIAL IM PRN (05:53)
[2019-10-06] MEDS: DEXTROSE 5%-NORMAL SALINE 1,000 ML IV PRN ×2 (05:53→14:46)
[2019-10-06] MEDS: IPRATROPIUM/ALBUTEROL 0.5-2.5 MG/3 ML AMPUL NEB PRN ×2 (09:34→17:50)
[2019-10-06] MEDS: INSULIN LISPRO 100 UNIT/ML 3 ML VIAL SUBCUT SCH ×4 (10:52→21:54)
[2019-10-06] MEDS: PANTOPRAZOLE SODIUM 40 MG TABLET.DR PO SCH (10:53)
[2019-10-06] MEDS: DOCUSATE SODIUM 100 MG CAPSULE PO SCH (10:53)
[2019-10-06] MEDS: ASPIRIN 81 MG TABLET, ENT COATED PO SCH (10:53)
[2019-10-06] MEDS: CYANOCOBALAMIN (VITAMIN B-12) 1,000 MCG TABLET PO SCH (10:54)
[2019-10-06] MEDS: DABIGATRAN ETEXILATE 150 MG CAPSULE PO SCH ×2 (10:54→21:55)
[2019-10-06] MEDS: FAMOTIDINE 20 MG TABLET PO SCH ×2 (10:54→21:55)
[2019-10-06] MEDS: METOPROLOL TARTRATE 25 MG TABLET PO SCH ×2 (10:55→21:54)
[2019-10-06] MEDS: BUSPIRONE HCL 10 MG TABLET PO SCH ×2 (10:55→17:29)
[2019-10-06] MEDS: SERTRALINE HCL 50 MG TABLET PO SCH (10:55)
[2019-10-06] MEDS: INSULIN GLARGINE,HUM.REC.ANLOG 1,000 UNIT/10 ML VIAL SUBCUT SCH (12:16)
[2019-10-06 13:21] LABS: APPEARANCE,URINE CLOUDY; BILIRUBIN,URINE NEGATIVE (NEGATIVE); GLUCOSE, URINE NEGATIVE (NEGATIVE); KETONES,URINE NEGATIVE (NEGATIVE); PROTEIN,URINE 30 mg/dL (NEGATIVE); URINE SPECIFIC GRAVITY 1.023; UROBILINOGEN,URINE NEGATIVE mg/dL (<2.0)
[2019-10-06 13:23] LABS: COLOR,URINE YELLOW
[2019-10-06] MEDS: DIVALPROEX SODIUM 125 MG CAP.SPRINK PO SCH ×2 (14:42→21:56)
--- NOTE | 2019-10-06 15:09 | PDOC PROGRESS REPORT ---
Subjective Subjective:: Patient continues to be delirious status post right knee replacement, psychosocial evaluation revealed she likely has underlying moderate to severe dementia which is high risk to be severely exacerbated in the setting of anesthesia. Per their evaluation, this can last for days to weeks. UTI is being treated, urine culture initially growing Klebsiella pneumoniae. COVID testing is pending. 10/04/2019 COVID testing has resulted as negative this afternoon. According to social work, nursing facilities are refusing to accept the patient until her behavior is a bit more calm. Patient was yelling a bit intermittently today but much less than yesterday. She was able to carry on a relatively normal conversation with me today and is almost fully oriented knowing who she is, where she is, and the date including the month and year as well as who is the current president. She speaks about a few nonsensical topics but is easily redirected. I think her mentation currently is about as good as it is going to get. She will need extensive rehab given her recent right knee replacement. Patient has completed ceftezole on course for UTI and this can be stopped today. Blood pressure intermittently uncontrolled and given her very high fall risk I am in favor of a conservative approach to blood pressure management. I think an appropriate goal for her would be approximately less than 150/90 given her current risk of falling as well as her age. Patient's only complaint today is that she needed to have a bowel movement and wanted a bedpan. She does have some right knee pain when asked specifically about this but she is not particularly concerned about it. Otherwise no new complaints. 10/05/2019 Patient very calm today and able to carry on a conversation though she is a bit sleepy. Her right knee incision site looks clean and is not very tender today. CBC reviewed and this is stable, BMP is pending. Patient is alert and oriented x3. Patient can go to SNF whenever they would like to take her. For some unknown reason she was placed on supplemental oxygen overnight although she has no history of requiring oxygen supplementation prior to admission but she does have a history of COPD which will make the patient encephalopathic from CO2 retention if we continue giving her oxygen needlessly. I discussed with the nurse the rationale to remove the oxygen as patient's oxygen saturation goal should be 89 to 92% and not any higher than this. Other than mild right knee pain patient does not articulate any other complaints. 10/06/2019 Patient has been in restraints overnight for being rambunctious and pulling at her IV. These were removed this morning as patient was much more calm. I have increased the frequency of her Depakote to 3 times daily. She is very calm and pleasant during my encounter today. I discussed with nursing who is concerned patient may be retaining urine, bladder scan revealed approximately 350 cc and patient was straight cathed. We will recheck her bladder scan in 2 to 4 hours and if she is still retaining greater than 200 cc we will put a Delcid catheter in. UA with reflex culture sent. We will also get a chest x-ray as patient has some coarse lung sounds today. She is probably high risk for aspiration due to her confusion per nursing, patient is only had some smeared bowel movements and has not had a full bowel movement in a few days. We will give her a laxative today. Her left hip x-ray that was done yesterday did not show any acute findings. Reason For Visit: AMS,ELGIN Physical Exam Vital Signs: Temp Pulse Resp BP Pulse Ox 97.2 F 78 18 148/56 H 92 10/06/19 12:00 10/06/19 12:00 10/06/19 12:00 10/06/19 12:00 10/06/19 12:00 Intake & Output 10/05/19 10/06/19 10/07/19 06:59 06:59 06:59 Intake Total 1100 370 Output Total 0 Balance 1100 370 Weight 83.5 kg 88.4 kg General appearance: PRESENT: no acute distress, well-developed, well-nourished Head exam: PRESENT: atraumatic, normocephalic Eye exam: PRESENT: conjunctiva pink Mouth exam: PRESENT: moist Respiratory exam: PRESENT: rhonchi. ABSENT: rales, wheezes Cardiovascular exam: PRESENT: RRR. ABSENT: diastolic murmur, rubs, systolic murmur GI/Abdominal exam: PRESENT: distended, normal bowel sounds, soft. ABSENT: guarding, mass, organolmegaly, rebound, tenderness Neurological exam: PRESENT: alert, awake, oriented to person, oriented to place Psychiatric exam: PRESENT: appropriate affect, normal mood Skin exam: PRESENT: dry, intact, warm Results Laboratory Results: 10/06/19 04:36 10/06/19 04:36 0810/06/19 10/06/19 13:48 04:36 04:36 WBC 9.8 RBC 3.99 Hgb 11.6 L Hct 36.2 MCV 91 MCH 29.1 MCHC 32.1 RDW 16.9 H Plt Count 221 Seg Neutrophils % 79.9 H Sodium 145.8 H 145.4 H Potassium 4.3 3.5 L Chloride 112 H 109 H Carbon Dioxide 23 29 Anion Gap 11 7 BUN 14 12 Creatinine 0.42 L 0.44 L Est GFR ( Amer) > 60 > 60 Glucose 97 73 L Calcium 9.1 8.7 Urine Color Urine Appearance Urine pH Ur Specific Catarina Urine Protein Urine Glucose (UA) Urine Ketones Urine Blood Urine RBC (Auto) 10/06/19 12:15 WBC RBC Hgb Hct MCV MCH MCHC RDW Plt Count Seg Neutrophils % Sodium Potassium Chloride Carbon Dioxide Anion Gap BUN Creatinine Est GFR ( Amer) Glucose Calcium Urine Color YELLOW Urine Appearance CLOUDY Urine pH 5.0 Ur Specific Catarina 1.023 Urine Protein 30 H Urine Glucose (UA) NEGATIVE Urine Ketones NEGATIVE Urine Blood NEGATIVE Urine RBC (Auto) 5 09/29/19 09/29/19 13:40 13:40 Creatine Kinase 52 Troponin I 0.019 Impressions: Chest X-Ray 09/29/19 13:50 IMPRESSION: Cardiomegaly and vascular congestion. Similar findings were noted on prior study. Head CT 09/29/19 13:51 IMPRESSION: MILD CHRONIC CHANGES OF ATROPHY AND MICROVASCULAR ISCHEMIA. NO ACUTE PROCESS. EVIDENCE OF ACUTE STROKE: NO. Chest CT 09/29/19 16:01 IMPRESSION: Cardiomegaly with pulmonary vascular congestion and minimal ground- glass infiltrates likely representing mild interstitial edema. No other significant finding. Abdomen/Pelvis CT 09/29/19 16:04 IMPRESSION: Ascites. Cholelithiasis. Diverticulosis coli. Hip X-Ray 10/05/19 00:00 IMPRESSION: Advanced osteoarthritis. Assessment and Plan - Diagnosis (1) Delirium superimposed on dementia Is this a current diagnosis for this admission?: Yes Plan: I discussed with patient's daughter who informs me that patient is being worked up for dementia and at baseline, she is usually alert and oriented x2, able to have conversation but very forgetful and often does remember what she was told. Also occasionally has hallucinations and delusions. Since knee arthroplasty, patient has been having more vivid hallucination episodes where she is seen calling for her dad. Based of conversation with daughter, it seems patient clearly has dementia with episodes of delirium. Takes risperidone 0.5 mg in a.m. and 1 mg nightly. Redirection and reorientation as needed, and pain control to help with delirium episodes. Avoid benzos. Psychiatric consulted 10/03/2019 Psychiatric valuation showed patient has moderate to severe underlying dementia but is high risk to be severely exacerbated after receiving anesthesia for several days up to a few weeks to return to baseline Acute UTI also playing a significant role in agitation, treating underlying source with antibiotics Risperidone continued from home medications which suggest she already has some underlying agitation and behavioral issues 10/04/2019 Rather calm today and able to carry on a normal conversation I suspect she can be discharged to rehab facility when they are willing to accept. Cover test is negative 10/05/2019 Patient continues to be calm and alert and mostly oriented She is a bit more somnolent today and I suspect this is due to excessive oxygen supplementation in the setting of longstanding COPD; oxygen saturation goal is 89 to 92% and COPD patient, discussed with nursing Limit use of sedating medications to a minimum 10/06/2019 Became combative overnight was put in restraints, these were removed this morning and patient has remained calm Depakote dose frequency increased to every 8 hours Highly suspicious that what the family believes is her baseline of fully alert and oriented caring for herself may not actually be her baseline (2) Acute metabolic encephalopathy Is this a current diagnosis for this admission?: Yes (3) History of arthroplasty of right knee Is this a current diagnosis for this admission?: Yes (4) ELGIN (acute kidney injury) Is this a current diagnosis for this admission?: Yes Plan: Resolved with IV fluid hydration. Off IV fluids. Encourage p.o. fluid intake. Renal function remained stable (5) Cardiomyopathy Qualifiers: Cardiomyopathy type: unspecified Qualified Code(s): I42.9 - Cardiomyopathy, unspecified Is this a current diagnosis for this admission?: Yes (6) Paroxysmal atrial fibrillation Is this a current diagnosis for this admission?: Yes (7) COPD (chronic obstructive pulmonary disease) Qualifiers: COPD type: chronic bronchitis Is this a current diagnosis for this admission?: Yes Plan: Does not appear to be acutely exacerbated. Resume home meds. PRN duo nebs and supplemental oxygen. In order to avoid CO2 retention, do not supplement oxygen unless saturation is less than 89% or patient is dyspneic 10/06/2019 Patient continues to be repeatedly placed back on supplemental oxygen despite my clear instructions she should not have this done simply for comfort reasons. She has COPD and she is high risk to retain CO2 which will cause worsening of her encephalopathy. I discussed this with the nurse again today and it seems that the overnight team may be putting the oxygen back on the patient after shift change. (8) Type 2 diabetes mellitus Is this a current diagnosis for this admission?: Yes (9) UTI (urinary tract infection) Qualifiers: Urinary tract infection type: acute cystitis Hematuria presence: with hematuria Qualified Code(s): N30.01 - Acute cystitis with hematuria Is this a current diagnosis for this admission?: Yes Plan: Urine culture growing Klebsiella pneumoniae. cefazolin to complete day four 10/02 Resolved Repeat UA did not show infection (10) Cough Is this a current diagnosis for this admission?: Yes Plan: Check PA/lateral chest x-ray to make sure patient is not aspirated or is developing atelectasis - Time Time Spent with patient: 25-34 minutes Medications reviewed and adjusted accordingly: Yes Anticipated Discharge Disposition: Long Term Facility Anticipated Discharge Timeframe: within 24 hours - Inpatient Certification Based on my medical assessment, after consideration of the patient's comorbidities, presenting symptoms, or acuity I expect that the services needed warrant INPATIENT care.: Yes I certify that my determination is in accordance with my understanding of Medicare's requirements for reasonable and necessary INPATIENT services [42 CFR 412.3e].: Yes Medical Necessity: Significant Comorbidiites Make Outpatient Treatment Too Risky, Need Close Monitoring Due to Risk of Patient Decompensation, Risk of Complication if Not Cared For in Hospital, Risk of Diagnosis Which Will Require Inpatient Eval/Care/Monitoring
--- NOTE | 2019-10-06 15:24 | RADIOLOGY REPORT (SQ) ---
EXAM DESCRIPTION: CHEST 2 VIEWS IMAGES COMPLETED DATE/TIME: 10/06/2019 3:15 pm REASON FOR STUDY: possible PNA COMPARISON: 09/29/2019 EXAM PARAMETERS: NUMBER OF VIEWS: two views TECHNIQUE: Digital Frontal and Lateral radiographic views of the chest acquired. RADIATION DOSE: NA LIMITATIONS: none FINDINGS: LUNGS AND PLEURA: No opacities, masses or pneumothorax. No pleural effusion. MEDIASTINUM AND HILAR STRUCTURES: No masses or contour abnormalities. HEART AND VASCULAR STRUCTURES: Enlarged cardiac silhouette with central vascular congestion, stable. No overt edema. BONES: Sternotomy changes. HARDWARE: Sternotomy hardware. OTHER: No other significant finding. IMPRESSION: Stable enlarged cardiac silhouette and central vascular congestion. No definitive super imposed airspace disease. TECHNICAL DOCUMENTATION: JOB ID: [id number] 2010 [employer]- All Rights Reserved Reading location - IP/workstation name: [email or web address]
[2019-10-06] MEDS ORDERED: BISACODYL 5 MG TABEC PO ONE (15:30)
--- NOTE | 2019-10-06 16:19 | RADIOLOGY REPORT (SQ) ---
EXAM DESCRIPTION: KUB/ABDOMEN (SINGLE VIEW) IMAGES COMPLETED DATE/TIME: 10/06/2019 3:15 pm REASON FOR STUDY: ileus COMPARISON: 09/29/2019 NUMBER OF VIEWS: One view. TECHNIQUE: Supine radiographic image of the abdomen acquired. LIMITATIONS: Limited exam due to body habitus. FINDINGS: BOWEL GAS PATTERN: Normal bowel gas pattern. No dilated loops. CALCIFICATIONS: No suspicious calcifications. SOFT TISSUES: No gross mass or suggestion of organomegaly. HARDWARE: Partially visualized right total hip arthroplasty. BONES: No acute fracture. Thoracolumbar spondylosis. Partially visualized right hip arthroplasty. Moderate to severe left hip osteoarthritis. Sternotomy wires. OTHER: Obesity. IMPRESSION: Limited exam secondary to body habitus. Gaseous distended structure stomach. TECHNICAL DOCUMENTATION: JOB ID: [id number] 2010 [employer]- All Rights Reserved Reading location - IP/workstation name: [email or web address]
[2019-10-06] MEDS: MELATONIN 3 MG TABLET PO SCH (21:54)
[2019-10-06] MEDS: LATANOPROST 0.005% OPH SOLN 2.5 ML OP SCH (21:55)
[2019-10-06] MEDS: LATANOPROST 0.005% OPH SOLN 2.5 ML OU SCH (21:56)
[2019-10-06] MEDS: OXYCODONE HCL IR 5 MG TABLET PO PRN (22:53)
[2019-10-07] MEDS: TRAMADOL HCL 50 MG TABLET PO PRN (05:06)
[2019-10-07] MEDS: LEVOTHYROXINE SODIUM 0.05 MG TABLET PO SCH (05:06)
[2019-10-07] MEDS: DIVALPROEX SODIUM 125 MG CAP.SPRINK PO SCH ×3 (05:08→23:24)
[2019-10-07 05:46] LABS: ABSOLUTE BASOPHILS # (AUTO) 0.1 10^3/uL (0.0-0.2); ABSOLUTE EOSINOPHILS # (AUTO) 0.2 10^3/uL (0.0-0.6); ABSOLUTE LYMPHOCYTES (AUTO) 1.5 10^3/uL (0.5-4.7); ABSOLUTE MONOCYTES (AUTO) 0.6 10^3/uL (0.1-1.4); ABSOLUTE NEUT (AUTO) 6.8 10^3/uL (1.7-8.2); BASOPHILS % (AUTO) 0.9 % (0-2); HEMATOCRIT 34.4 % (36.0-47.0); HEMOGLOBIN 11.2 g/dL (12.0-15.5); LYMPHOCYTES % (AUTO) 16.1 % (13-45); MEAN CORPUSCULAR HEMOGLOBIN 28.9 pg (27.0-33.4); MEAN CORPUSCULAR HGB CONC 32.5 g/dL (32.0-36.0); MEAN CORPUSCULAR VOLUME 89 fl (80-97); MONOCYTES % (AUTO) 6.2 % (3-13); PLATELET COUNT 202 10^3/uL (150-450); RED BLOOD COUNT 3.87 10^6/uL (3.72-5.28); RED CELL DISTRIBUTION WIDTH 16.8 % (11.5-14.0); SEGMENTED NEUTROPHILS % (AUTO) 74.8 % (42-78); TOTAL CELLS COUNTED % (AUTO) 100 %
[2019-10-07 06:09] LABS: ANION GAP 8 (5-19); BLOOD UREA NITROGEN 10 mg/dL (7-20); CALCIUM 8.7 mg/dL (8.4-10.2); CARBON DIOXIDE 24 mmol/L (22-30); CHLORIDE 113 mmol/L (98-107); GLUCOSE 71 mg/dL (75-110); POTASSIUM 4.2 mmol/L (3.6-5.0)
[2019-10-07] MEDS: INSULIN LISPRO 100 UNIT/ML 3 ML VIAL SUBCUT SCH ×4 (11:02→23:18)
[2019-10-07] MEDS: BUSPIRONE HCL 10 MG TABLET PO SCH ×2 (11:14→17:18)
[2019-10-07] MEDS: FAMOTIDINE 20 MG TABLET PO SCH ×2 (11:14→23:25)
[2019-10-07] MEDS: CYANOCOBALAMIN (VITAMIN B-12) 1,000 MCG TABLET PO SCH (11:14)
[2019-10-07] MEDS: SERTRALINE HCL 50 MG TABLET PO SCH (11:14)
[2019-10-07] MEDS: DOCUSATE SODIUM 100 MG CAPSULE PO SCH (11:15)
[2019-10-07] MEDS: METOPROLOL TARTRATE 25 MG TABLET PO SCH ×2 (11:15→23:26)
[2019-10-07] MEDS: PANTOPRAZOLE SODIUM 40 MG TABLET.DR PO SCH (11:15)
[2019-10-07] MEDS: ASPIRIN 81 MG TABLET, ENT COATED PO SCH (11:15)
[2019-10-07] MEDS: DABIGATRAN ETEXILATE 150 MG CAPSULE PO SCH ×2 (11:20→23:27)
[2019-10-07] MEDS: ACETAMINOPHEN 325 MG TABLET PO PRN (12:33)
[2019-10-07] MEDS: HALOPERIDOL LACTATE INJ 5 MG/1 ML VIAL IM PRN (12:34)
[2019-10-07] MEDS ORDERED: BISACODYL 5 MG TABEC PO PRN (14:34)
[2019-10-07] MEDS ORDERED: BISACODYL 10 MG SUPP.RECT PR PRN (14:34)
--- NOTE | 2019-10-07 14:42 | PDOC PROGRESS REPORT ---
Subjective Subjective:: Patient continues to be delirious status post right knee replacement, psychosocial evaluation revealed she likely has underlying moderate to severe dementia which is high risk to be severely exacerbated in the setting of anesthesia. Per their evaluation, this can last for days to weeks. UTI is being treated, urine culture initially growing Klebsiella pneumoniae. COVID testing is pending. 10/04/2019 COVID testing has resulted as negative this afternoon. According to social work, nursing facilities are refusing to accept the patient until her behavior is a bit more calm. Patient was yelling a bit intermittently today but much less than yesterday. She was able to carry on a relatively normal conversation with me today and is almost fully oriented knowing who she is, where she is, and the date including the month and year as well as who is the current president. She speaks about a few nonsensical topics but is easily redirected. I think her mentation currently is about as good as it is going to get. She will need extensive rehab given her recent right knee replacement. Patient has completed ceftezole on course for UTI and this can be stopped today. Blood pressure intermittently uncontrolled and given her very high fall risk I am in favor of a conservative approach to blood pressure management. I think an appropriate goal for her would be approximately less than 150/90 given her current risk of falling as well as her age. Patient's only complaint today is that she needed to have a bowel movement and wanted a bedpan. She does have some right knee pain when asked specifically about this but she is not particularly concerned about it. Otherwise no new complaints. 10/05/2019 Patient very calm today and able to carry on a conversation though she is a bit sleepy. Her right knee incision site looks clean and is not very tender today. CBC reviewed and this is stable, BMP is pending. Patient is alert and oriented x3. Patient can go to SNF whenever they would like to take her. For some unknown reason she was placed on supplemental oxygen overnight although she has no history of requiring oxygen supplementation prior to admission but she does have a history of COPD which will make the patient encephalopathic from CO2 retention if we continue giving her oxygen needlessly. I discussed with the nurse the rationale to remove the oxygen as patient's oxygen saturation goal should be 89 to 92% and not any higher than this. Other than mild right knee pain patient does not articulate any other complaints. 10/06/2019 Patient has been in restraints overnight for being rambunctious and pulling at her IV. These were removed this morning as patient was much more calm. I have increased the frequency of her Depakote to 3 times daily. She is very calm and pleasant during my encounter today. I discussed with nursing who is concerned patient may be retaining urine, bladder scan revealed approximately 350 cc and patient was straight cathed. We will recheck her bladder scan in 2 to 4 hours and if she is still retaining greater than 200 cc we will put a Delcid catheter in. UA with reflex culture sent. We will also get a chest x-ray as patient has some coarse lung sounds today. She is probably high risk for aspiration due to her confusion per nursing, patient is only had some smeared bowel movements and has not had a full bowel movement in a few days. We will give her a laxative today. Her left hip x-ray that was done yesterday did not show any acute findings. 10/07/2019 Patient is a bit agitated this morning but is very redirectable when she becomes calm after I talked to her for a few minutes and give her some juice to drink. I do not believe she has any immediate need for restraints and we should try to avoid using these. She has had some possible urinary retention over the past few days and I discussed with nursing that we should monitor for this today. Patient's UTI treatment completed previously. Seems to be constipated for the past several days only some smears of stool but no real bowel movements. I have added a bowel regimen with Dulcolax. We can give her an enema if these are ineffective. Patient has a bed offer at [facility] and they will start the approval process on Wednesday reportedly. Patient has no new complaints today and is oriented to self/place/partial time. Reason For Visit: AMS,ELGIN Physical Exam Vital Signs: Temp Pulse Resp BP Pulse Ox 97.9 F 81 22 H 148/90 H 98 10/07/19 12:00 10/07/19 12:00 10/07/19 12:00 10/07/19 12:00 10/07/19 12:00 Intake & Output 10/06/19 10/07/19 10/08/19 06:59 06:59 06:59 Intake Total 370 653 120 Output Total 0 0 Balance 370 653 120 Weight 88.4 kg 89.2 kg General appearance: PRESENT: no acute distress, well-developed, well-nourished Head exam: PRESENT: atraumatic, normocephalic Eye exam: PRESENT: conjunctiva pink Mouth exam: PRESENT: moist Respiratory exam: PRESENT: clear to auscultation molly. ABSENT: rales, rhonchi, wheezes Cardiovascular exam: PRESENT: RRR. ABSENT: diastolic murmur, rubs, systolic murmur GI/Abdominal exam: PRESENT: normal bowel sounds, soft. ABSENT: distended, guarding, mass, organolmegaly, rebound, tenderness Neurological exam: PRESENT: alert, awake, oriented to person, oriented to place, oriented to time - Does not know the day of the month but does know the year and who the president is currently Psychiatric exam: PRESENT: agitated, normal mood Skin exam: PRESENT: dry, intact, warm Results Laboratory Results: 10/07/19 05:20 10/07/19 05:20 10/07/19 10/07/19 05:20 05:20 WBC 9.0 RBC 3.87 Hgb 11.2 L Hct 34.4 L MCV 89 MCH 28.9 MCHC 32.5 RDW 16.8 H Plt Count 202 Seg Neutrophils % 74.8 Sodium 145.1 H Potassium 4.2 Chloride 113 H Carbon Dioxide 24 Anion Gap 8 BUN 10 Creatinine 0.43 L Est GFR ( Amer) > 60 Glucose 71 L Calcium 8.7 09/29/19 09/29/19 13:40 13:40 Creatine Kinase 52 Troponin I 0.019 Impressions: Head CT 09/29/19 13:51 IMPRESSION: MILD CHRONIC CHANGES OF ATROPHY AND MICROVASCULAR ISCHEMIA. NO ACUTE PROCESS. EVIDENCE OF ACUTE STROKE: NO. Chest CT 09/29/19 16:01 IMPRESSION: Cardiomegaly with pulmonary vascular congestion and minimal ground- glass infiltrates likely representing mild interstitial edema. No other significant finding. Abdomen/Pelvis CT 09/29/19 16:04 IMPRESSION: Ascites. Cholelithiasis. Diverticulosis coli. Hip X-Ray 10/05/19 00:00 IMPRESSION: Advanced osteoarthritis. KUB X-Ray 10/06/19 00:00 IMPRESSION: Limited exam secondary to body habitus. Gaseous distended structure stomach. Chest X-Ray 10/06/19 14:36 IMPRESSION: Stable enlarged cardiac silhouette and central vascular congestion. No definitive superimposed airspace disease. Assessment and Plan - Diagnosis (1) Delirium superimposed on dementia Is this a current diagnosis for this admission?: Yes Plan: I discussed with patient's daughter who informs me that patient is being worked up for dementia and at baseline, she is usually alert and oriented x2, able to have conversation but very forgetful and often does remember what she was told. Also occasionally has hallucinations and delusions. Since knee arthroplasty, patient has been having more vivid hallucination episodes where she is seen calling for her dad. Based of conversation with daughter, it seems patient clearly has dementia with episodes of delirium. Takes risperidone 0.5 mg in a.m. and 1 mg nightly. Redirection and reorientation as needed, and pain control to help with delirium episodes. Avoid benzos. Psychiatric consulted 10/03/2019 Psychiatric valuation showed patient has moderate to severe underlying dementia but is high risk to be severely exacerbated after receiving anesthesia for several days up to a few weeks to return to baseline Acute UTI also playing a significant role in agitation, treating underlying source with antibiotics Risperidone continued from home medications which suggest she already has some underlying agitation and behavioral issues 10/04/2019 Rather calm today and able to carry on a normal conversation I suspect she can be discharged to rehab facility when they are willing to accept. Cover test is negative 10/05/2019 Patient continues to be calm and alert and mostly oriented She is a bit more somnolent today and I suspect this is due to excessive oxygen supplementation in the setting of longstanding COPD; oxygen saturation goal is 89 to 92% and COPD patient, discussed with nursing Limit use of sedating medications to a minimum 10/06/2019 Became combative overnight was put in restraints, these were removed this morning and patient has remained calm Depakote dose frequency increased to every 8 hours Highly suspicious that what the family believes is her baseline of fully alert and oriented caring for herself may not actually be her baseline 10/06/2022 Patient very redirectable, does not need restraints currently Psychiatric medications appear to be effective at the current dosing and frequency, continue these To reach out to family to see what the patient's actual baseline might be (2) Acute metabolic encephalopathy Is this a current diagnosis for this admission?: Yes (3) History of arthroplasty of right knee Is this a current diagnosis for this admission?: Yes Plan: Experienced significant ambulatory dysfunction since having right knee arthroplasty by Dr. Dickey on 09/25/2019. Daughter is unable to care for patient and help patient get around in this condition given her own limitations. X-rays on admission were unremarkable. Pain control. Physical therapy. Social work consulted for placement at SNF. Daughter is agreeable to plan. 10/03/2019 Orthopedic surgery following Needs placement at SNF, family is agreeable COVID testing pending for SNF placement 10/04/2019 Cover testing negative, sniffs in area reportedly refusing to take patient until she is calm. She is calm today Placement at rehab facility pending for starting approval process on 10/09/2019 (4) ELGIN (acute kidney injury) Is this a current diagnosis for this admission?: Yes (5) Cardiomyopathy Qualifiers: Cardiomyopathy type: unspecified Qualified Code(s): I42.9 - Cardiomyopathy, unspecified Is this a current diagnosis for this admission?: Yes (6) Paroxysmal atrial fibrillation Is this a current diagnosis for this admission?: Yes (7) COPD (chronic obstructive pulmonary disease) Qualifiers: COPD type: chronic bronchitis Is this a current diagnosis for this admission?: Yes (8) Type 2 diabetes mellitus Is this a current diagnosis for this admission?: Yes (9) UTI (urinary tract infection) Qualifiers: Urinary tract infection type: acute cystitis Hematuria presence: with hematuria Qualified Code(s): N30.01 - Acute cystitis with hematuria Is this a current diagnosis for this admission?: Yes (10) Cough Is this a current diagnosis for this admission?: Yes - Time Time Spent with patient: 15-24 minutes Medications reviewed and adjusted accordingly: Yes Anticipated Discharge Disposition: Retirement Facility Anticipated Discharge Timeframe: within 48 hours - Inpatient Certification Based on my medical assessment, after consideration of the patient's comorbidities, presenting symptoms, or acuity I expect that the services needed warrant INPATIENT care.: Yes I certify that my determination is in accordance with my understanding of Medicare's requirements for reasonable and necessary INPATIENT services [42 CFR 412.3e].: Yes Medical Necessity: Significant Comorbidiites Make Outpatient Treatment Too Risky, Need Close Monitoring Due to Risk of Patient Decompensation, Need for Pain Control, Risk of Complication if Not Cared For in Hospital, Risk of Diagnosis Which Will Require Inpatient Eval/Care/Monitoring
[2019-10-07] MEDS: MELATONIN 3 MG TABLET PO SCH (23:25)
[2019-10-07] MEDS: LATANOPROST 0.005% OPH SOLN 2.5 ML OP SCH (23:43)
[2019-10-07] MEDS: LATANOPROST 0.005% OPH SOLN 2.5 ML OU SCH (23:44)
[2019-10-08] MEDS: HALOPERIDOL LACTATE INJ 5 MG/1 ML VIAL IM PRN (01:49)
[2019-10-08] MEDS: LEVOTHYROXINE SODIUM 0.05 MG TABLET PO SCH (06:28)
[2019-10-08] MEDS: DIVALPROEX SODIUM 125 MG CAP.SPRINK PO SCH ×3 (06:28→22:36)
[2019-10-08] MEDS: DEXTROSE 5%-NORMAL SALINE 1,000 ML IV PRN (08:34)
[2019-10-08 09:11] LABS: ABSOLUTE EOSINOPHILS # (AUTO) 0.1 10^3/uL (0.0-0.6); ABSOLUTE LYMPHOCYTES (AUTO) 1.5 10^3/uL (0.5-4.7); ABSOLUTE MONOCYTES (AUTO) 0.6 10^3/uL (0.1-1.4); ABSOLUTE NEUT (AUTO) 7.8 10^3/uL (1.7-8.2); BASOPHILS % (AUTO) 0.4 % (0-2); EOSINOPHILS % (AUTO) 1.1 % (0-6); HEMATOCRIT 36.5 % (36.0-47.0); HEMOGLOBIN 11.4 g/dL (12.0-15.5); LYMPHOCYTES % (AUTO) 14.5 % (13-45); MEAN CORPUSCULAR HEMOGLOBIN 28.4 pg (27.0-33.4); MEAN CORPUSCULAR HGB CONC 31.2 g/dL (32.0-36.0); MEAN CORPUSCULAR VOLUME 91 fl (80-97); MONOCYTES % (AUTO) 5.9 % (3-13); PLATELET COUNT 206 10^3/uL (150-450); RED BLOOD COUNT 4.01 10^6/uL (3.72-5.28); RED CELL DISTRIBUTION WIDTH 17.4 % (11.5-14.0); SEGMENTED NEUTROPHILS % (AUTO) 78.1 % (42-78); TOTAL CELLS COUNTED % (AUTO) 100 %
[2019-10-08 09:16] LABS: ANION GAP 7 (5-19); BLOOD UREA NITROGEN 10 mg/dL (7-20); CALCIUM 8.8 mg/dL (8.4-10.2); CARBON DIOXIDE 29 mmol/L (22-30); CHLORIDE 109 mmol/L (98-107); GLUCOSE 81 mg/dL (75-110); POTASSIUM 4.4 mmol/L (3.6-5.0)
[2019-10-08] MEDS: INSULIN LISPRO 100 UNIT/ML 3 ML VIAL SUBCUT SCH ×4 (09:26→22:25)
[2019-10-08] MEDS: ERGOCALCIFEROL (VITAMIN D2) 50000 UNIT (1.25 MG) CAPSULE PO SCH (09:27)
[2019-10-08] MEDS: PANTOPRAZOLE SODIUM 40 MG TABLET.DR PO SCH (09:27)
[2019-10-08] MEDS: CYANOCOBALAMIN (VITAMIN B-12) 1,000 MCG TABLET PO SCH (09:27)
[2019-10-08] MEDS: FAMOTIDINE 20 MG TABLET PO SCH ×2 (09:28→22:37)
[2019-10-08] MEDS: DABIGATRAN ETEXILATE 150 MG CAPSULE PO SCH ×2 (09:28→22:34)
[2019-10-08] MEDS: METOPROLOL TARTRATE 25 MG TABLET PO SCH ×2 (09:28→22:00)
[2019-10-08] MEDS: DOCUSATE SODIUM 100 MG CAPSULE PO SCH (09:28)
[2019-10-08] MEDS: SERTRALINE HCL 50 MG TABLET PO SCH (09:28)
[2019-10-08] MEDS: BUSPIRONE HCL 10 MG TABLET PO SCH ×2 (09:28→18:52)
[2019-10-08] MEDS: ASPIRIN 81 MG TABLET, ENT COATED PO SCH (09:28)
--- NOTE | 2019-10-08 19:03 | PDOC PROGRESS REPORT ---
Subjective Subjective:: Patient continues to be delirious status post right knee replacement, psychosocial evaluation revealed she likely has underlying moderate to severe dementia which is high risk to be severely exacerbated in the setting of anesthesia. Per their evaluation, this can last for days to weeks. UTI is being treated, urine culture initially growing Klebsiella pneumoniae. COVID testing is pending. 10/04/2019 COVID testing has resulted as negative this afternoon. According to social work, nursing facilities are refusing to accept the patient until her behavior is a bit more calm. Patient was yelling a bit intermittently today but much less than yesterday. She was able to carry on a relatively normal conversation with me today and is almost fully oriented knowing who she is, where she is, and the date including the month and year as well as who is the current president. She speaks about a few nonsensical topics but is easily redirected. I think her mentation currently is about as good as it is going to get. She will need extensive rehab given her recent right knee replacement. Patient has completed ceftezole on course for UTI and this can be stopped today. Blood pressure intermittently uncontrolled and given her very high fall risk I am in favor of a conservative approach to blood pressure management. I think an appropriate goal for her would be approximately less than 150/90 given her current risk of falling as well as her age. Patient's only complaint today is that she needed to have a bowel movement and wanted a bedpan. She does have some right knee pain when asked specifically about this but she is not particularly concerned about it. Otherwise no new complaints. 10/05/2019 Patient very calm today and able to carry on a conversation though she is a bit sleepy. Her right knee incision site looks clean and is not very tender today. CBC reviewed and this is stable, BMP is pending. Patient is alert and oriented x3. Patient can go to SNF whenever they would like to take her. For some unknown reason she was placed on supplemental oxygen overnight although she has no history of requiring oxygen supplementation prior to admission but she does have a history of COPD which will make the patient encephalopathic from CO2 retention if we continue giving her oxygen needlessly. I discussed with the nurse the rationale to remove the oxygen as patient's oxygen saturation goal should be 89 to 92% and not any higher than this. Other than mild right knee pain patient does not articulate any other complaints. 10/06/2019 Patient has been in restraints overnight for being rambunctious and pulling at her IV. These were removed this morning as patient was much more calm. I have increased the frequency of her Depakote to 3 times daily. She is very calm and pleasant during my encounter today. I discussed with nursing who is concerned patient may be retaining urine, bladder scan revealed approximately 350 cc and patient was straight cathed. We will recheck her bladder scan in 2 to 4 hours and if she is still retaining greater than 200 cc we will put a Delcid catheter in. UA with reflex culture sent. We will also get a chest x-ray as patient has some coarse lung sounds today. She is probably high risk for aspiration due to her confusion per nursing, patient is only had some smeared bowel movements and has not had a full bowel movement in a few days. We will give her a laxative today. Her left hip x-ray that was done yesterday did not show any acute findings. 10/07/2019 Patient is a bit agitated this morning but is very redirectable when she becomes calm after I talked to her for a few minutes and give her some juice to drink. I do not believe she has any immediate need for restraints and we should try to avoid using these. She has had some possible urinary retention over the past few days and I discussed with nursing that we should monitor for this today. Patient's UTI treatment completed previously. Seems to be constipated for the past several days only some smears of stool but no real bowel movements. I have added a bowel regimen with Dulcolax. We can give her an enema if these are ineffective. Patient has a bed offer at [facility] and they will start the approval process on Wednesday reportedly. Patient has no new complaints today and is oriented to self/place/partial time. 10/08/2019 Patient was apparently much more combative and confused this morning. She was reportedly yelling and screaming at the nursing staff, confused that she has been for many days. Patient then reportedly had a syncopal event with almost immediate return to a calm demeanor and rather sleepy but easily arousable. EKG showed atrial fibrillation with a right bundle branch block which is not new when compared to her previous EKGs. Ordered echocardiogram and increased patient's Depakote to help keep her calm. Patient reportedly does not have any history of seizure activity. May need to order EEG if she has more episodes like this although I think it is much more likely if she is having actual syncope but it is cardiogenic precipitated by severe emotional distress causing her A. fib to deteriorate into a syncopal arrhythmia. Reason For Visit: AMS,ELGIN Physical Exam Vital Signs: Temp Pulse Resp BP Pulse Ox 97.8 F 77 20 151/86 H 95 10/08/19 12:10 10/08/19 12:20 10/08/19 12:20 10/08/19 12:10 10/08/19 12:20 Intake & Output 10/07/19 10/08/19 10/09/19 06:59 06:59 06:59 Intake Total 653 1200 90 Output Total 0 520 Balance 653 680 90 Weight 89.2 kg 90.4 kg 90.9 kg General appearance: PRESENT: no acute distress, cooperative, morbidly obese, well-developed, well-nourished Head exam: PRESENT: atraumatic, normocephalic Eye exam: PRESENT: conjunctiva pink Mouth exam: PRESENT: moist Respiratory exam: PRESENT: clear to auscultation molly. ABSENT: rales, rhonchi, wheezes Cardiovascular exam: PRESENT: irregular rhythm. ABSENT: diastolic murmur, rubs, systolic murmur GI/Abdominal exam: PRESENT: hernia, normal bowel sounds, soft. ABSENT: distended, guarding, mass, organolmegaly, rebound, tenderness Rectal exam: PRESENT: deferred Neurological exam: PRESENT: alert, awake, oriented to person. ABSENT: oriented to place, oriented to time, oriented to situation Psychiatric exam: PRESENT: appropriate affect, normal mood Skin exam: PRESENT: dry, intact, warm Results Laboratory Results: 10/08/19 08:32 10/08/19 08:32 10/08/19 10/08/19 10/08/19 08:32 08:32 08:32 WBC 10.0 RBC 4.01 Hgb 11.4 L Hct 36.5 MCV 91 MCH 28.4 MCHC 31.2 L RDW 17.4 H Plt Count 206 Seg Neutrophils % 78.1 H Sodium 144.6 Potassium 4.4 Chloride 109 H Carbon Dioxide 29 Anion Gap 7 BUN 10 Creatinine 0.49 L Est GFR ( Amer) > 60 Glucose 81 Calcium 8.8 Magnesium 2.0 09/29/19 09/29/19 10/08/19 13:40 13:40 08:32 Creatine Kinase 52 Troponin I 0.019 < 0.012 Impressions: Head CT 09/29/19 13:51 IMPRESSION: MILD CHRONIC CHANGES OF ATROPHY AND MICROVASCULAR ISCHEMIA. NO ACUTE PROCESS. EVIDENCE OF ACUTE STROKE: NO. Chest CT 09/29/19 16:01 IMPRESSION: Cardiomegaly with pulmonary vascular congestion and minimal ground- glass infiltrates likely representing mild interstitial edema. No other signi ficant finding. Abdomen/Pelvis CT 09/29/19 16:04 IMPRESSION: Ascites. Cholelithiasis. Diverticulosis coli. Hip X-Ray 10/05/19 00:00 IMPRESSION: Advanced osteoarthritis. KUB X-Ray 10/06/19 00:00 IMPRESSION: Limited exam secondary to body habitus. Gaseous distended structure stomach. Chest X-Ray 10/06/19 14:36 IMPRESSION: Stable enlarged cardiac silhouette and central vascular congestion. No definitive superimposed airspace disease. Assessment and Plan - Diagnosis (1) Delirium superimposed on dementia Is this a current diagnosis for this admission?: Yes Plan: I discussed with patient's daughter who informs me that patient is being worked up for dementia and at baseline, she is usually alert and oriented x2, able to have conversation but very forgetful and often does remember what she was told. Also occasionally has hallucinations and delusions. Since knee arthroplasty, patient has been having more vivid hallucination episodes where she is seen ca lling for her dad. Based of conversation with daughter, it seems patient clearly has dementia with episodes of delirium. Takes risperidone 0.5 mg in a.m. and 1 mg nightly. Redirection and reorientation as needed, and pain control to help with delirium episodes. Avoid benzos. Psychiatric consulted 10/03/2019 Psychiatric valuation showed patient has moderate to severe underlying dementia but is high risk to be severely exacerbated after receiving anesthesia for several days up to a few weeks to return to baseline Acute UTI also playing a significant role in agitation, treating underlying source with antibiotics Risperidone continued from home medications which suggest she already has some underlying agitation and behavioral issues 10/04/2019 Rather calm today and able to carry on a normal conversation I suspect she can be discharged to rehab facility when they are willing to acce pt. Cover test is negative 10/05/2019 Patient continues to be calm and alert and mostly oriented She is a bit more somnolent today and I suspect this is due to excessive oxygen supplementation in the setting of longstanding COPD; oxygen saturation goal is 89 to 92% and COPD patient, discussed with nursing Limit use of sedating medications to a minimum 10/06/2019 Became combative overnight was put in restraints, these were removed this morning and patient has remained calm Depakote dose frequency increased to every 8 hours Highly suspicious that what the family believes is her baseline of fully alert and oriented caring for herself may not actually be her baseline 10/07/2019 Check Patient very redirectable, does not need restraints currently Psychiatric medications appear to be effective at the current dosing and frequency, continue these To reach out to family to see what the patient's actual baseline might be 10/08/2019 Patient became acutely more agitated this morning and had a syncopal episode probably due to severe emotional distress causing her A. fib to deteriorate into a syncopal arrhythmia Check UA and she may have a recurrent UTI given she has urinary retention Urinary retention may be causing worsening delirium on its own whether or not she has UTI Increase Depakote dose to help keep her calm and avoid worsening her A. fib (2) Acute metabolic encephalopathy Is this a current diagnosis for this admission?: Yes (3) History of arthroplasty of right knee Is this a current diagnosis for this admission?: Yes (4) ELGIN (acute kidney injury) Is this a current diagnosis for this admission?: Yes (5) Cardiomyopathy Qualifiers: Cardiomyopathy type: unspecified Qualified Code(s): I42.9 - Cardiomyopathy, unspecified Is this a current diagnosis for this admission?: Yes (6) Paroxysmal atrial fibrillation Is this a current diagnosis for this admission?: Yes Plan: On Lopressor and Pradaxa Had a syncopal episode 10/07 after severe emotional agitation likely caused atrial fibrillation to deteriorate into a syncopal arrhythmia EKG showed A. fib with old right bundle branch block, rate controlled Echocardiogram Cardiology consult with Dr. Krishan (7) COPD (chronic obstructive pulmonary disease) Qualifiers: COPD type: chronic bronchitis Is this a current diagnosis for this admission?: Yes (8) Type 2 diabetes mellitus Is this a current diagnosis for this admission?: Yes (9) UTI (urinary tract infection) Qualifiers: Urinary tract infection type: acute cystitis Hematuria presence: with hematuria Qualified Code(s): N30.01 - Acute cystitis with hematuria Is this a current diagnosis for this admission?: Yes (10) Cough Is this a current diagnosis for this admission?: Yes (11) Acute urinary retention Is this a current diagnosis for this admission?: Yes Plan: Intermittently retaining urine Delcid catheter placed, patient pulled on her Delcid and some bloody urine came out afterwards UA with reflex culture - Time Time Spent with patient: 25-34 minutes Medications reviewed and adjusted accordingly: Yes Anticipated Discharge Disposition: Group Home Facility Anticipated Discharge Timeframe: within 72 hours - Inpatient Certification Based on my medical assessment, after consideration of the patient's comorbidities, presenting symptoms, or acuity I expect that the services needed warrant INPATIENT care.: Yes I certify that my determination is in accordance with my understanding of Medicare's requirements for reasonable and necessary INPATIENT services [42 CFR 412.3e].: Yes Medical Necessity: Significant Comorbidiites Make Outpatient Treatment Too Risky, Need Close Monitoring Due to Risk of Patient Decompensation, Risk of Complication if Not Cared For in Hospital, Risk of Diagnosis Which Will Require Inpatient Eval/Care/Monitoring
--- NOTE | 2019-10-08 20:24 | EKG REPORT ---
SEVERITY:- ABNORMAL ECG - ATRIAL FIBRILLATION RIGHT BUNDLE BRANCH BLOCK : Confirmed by: Macho Nelson 08-Oct-2019 20:23:11
[2019-10-08] MEDS: MELATONIN 3 MG TABLET PO SCH (22:34)
[2019-10-08] MEDS: LATANOPROST 0.005% OPH SOLN 2.5 ML OP SCH (22:39)
[2019-10-08] MEDS: LATANOPROST 0.005% OPH SOLN 2.5 ML OU SCH (22:40)
[2019-10-09] MEDS: DEXTROSE 5%-NORMAL SALINE 1,000 ML IV PRN (03:28)
[2019-10-09] MEDS: LEVOTHYROXINE SODIUM 0.05 MG TABLET PO SCH (05:16)
[2019-10-09] MEDS: DIVALPROEX SODIUM 125 MG CAP.SPRINK PO SCH ×3 (05:16→23:56)
[2019-10-09 06:36] LABS: APPEARANCE,URINE TURBID; BILIRUBIN,URINE NEGATIVE (NEGATIVE); COLOR,URINE RED; GLUCOSE, URINE NEGATIVE (NEGATIVE); KETONES,URINE 20 mg/dL (NEGATIVE); PROTEIN,URINE NEGATIVE (NEGATIVE); URINE SPECIFIC GRAVITY 1.028; UROBILINOGEN,URINE NEGATIVE mg/dL (<2.0)
[2019-10-09 07:05] LABS: ABSOLUTE BASOPHILS # (AUTO) 0.1 10^3/uL (0.0-0.2); ABSOLUTE EOSINOPHILS # (AUTO) 0.1 10^3/uL (0.0-0.6); ABSOLUTE LYMPHOCYTES (AUTO) 1.5 10^3/uL (0.5-4.7); ABSOLUTE MONOCYTES (AUTO) 0.5 10^3/uL (0.1-1.4); ABSOLUTE NEUT (AUTO) 7.3 10^3/uL (1.7-8.2); HEMATOCRIT 38.2 % (36.0-47.0); MEAN CORPUSCULAR HEMOGLOBIN 28.6 pg (27.0-33.4); MEAN CORPUSCULAR HGB CONC 31.5 g/dL (32.0-36.0); MEAN CORPUSCULAR VOLUME 91 fl (80-97); MONOCYTES % (AUTO) 5.3 % (3-13); PLATELET COUNT 213 10^3/uL (150-450); RED CELL DISTRIBUTION WIDTH 17.8 % (11.5-14.0); SEGMENTED NEUTROPHILS % (AUTO) 76.7 % (42-78); TOTAL CELLS COUNTED % (AUTO) 100 %; WHITE BLOOD COUNT 9.5 10^3/uL (4.0-10.5)
[2019-10-09] MEDS ORDERED: CEPHALEXIN 500 MG CAPSULE PO SCH (09:30)
[2019-10-09 10:32] LABS: ANION GAP 11 (5-19); BLOOD UREA NITROGEN 11 mg/dL (7-20); CARBON DIOXIDE 26 mmol/L (22-30); CHLORIDE 109 mmol/L (98-107); GLUCOSE 125 mg/dL (75-110); POTASSIUM 4.2 mmol/L (3.6-5.0)
[2019-10-09] MEDS: INSULIN LISPRO 100 UNIT/ML 3 ML VIAL SUBCUT SCH ×4 (10:43→22:00)
[2019-10-09] MEDS: ASPIRIN 81 MG TABLET, ENT COATED PO SCH (10:57)
[2019-10-09] MEDS: PANTOPRAZOLE SODIUM 40 MG TABLET.DR PO SCH (10:57)
[2019-10-09] MEDS: FUROSEMIDE INJ/PF 40 MG/4 ML SDV IV SCH (10:57)
[2019-10-09] MEDS: DOCUSATE SODIUM 100 MG CAPSULE PO SCH (10:57)
[2019-10-09] MEDS: SERTRALINE HCL 50 MG TABLET PO SCH (10:57)
[2019-10-09] MEDS: CYANOCOBALAMIN (VITAMIN B-12) 1,000 MCG TABLET PO SCH (10:57)
[2019-10-09] MEDS: FAMOTIDINE 20 MG TABLET PO SCH ×2 (10:57→22:00)
[2019-10-09] MEDS: BUSPIRONE HCL 10 MG TABLET PO SCH ×2 (10:57→17:44)
[2019-10-09] MEDS: METOPROLOL TARTRATE 25 MG TABLET PO SCH ×2 (10:58→22:00)
[2019-10-09] MEDS: FLUTICASONE/VILANTEROL 100-25 MCG/DOSE IH SCH (11:01)
[2019-10-09] MEDS: CLONIDINE 0.1 MG/24 HR PATCH.TDWK TD SCH (11:01)
[2019-10-09] MEDS: DABIGATRAN ETEXILATE 150 MG CAPSULE PO SCH ×2 (11:01→22:00)
[2019-10-09] MEDS: CEFTRIAXONE 2 GM/D5W RTU 2 GM/50 ML RTUPB IV SCH (11:02)
--- NOTE | 2019-10-09 18:46 | PDOC PROGRESS REPORT ---
Subjective Subjective:: Patient continues to be delirious status post right knee replacement, psychosocial evaluation revealed she likely has underlying moderate to severe dementia which is high risk to be severely exacerbated in the setting of anesthesia. Per their evaluation, this can last for days to weeks. UTI is being treated, urine culture initially growing Klebsiella pneumoniae. COVID testing is pending. 10/04/2019 COVID testing has resulted as negative this afternoon. According to social work, nursing facilities are refusing to accept the patient until her behavior is a bit more calm. Patient was yelling a bit intermittently today but much less than yesterday. She was able to carry on a relatively normal conversation with me today and is almost fully oriented knowing who she is, where she is, and the date including the month and year as well as who is the current president. She speaks about a few nonsensical topics but is easily redirected. I think her mentation currently is about as good as it is going to get. She will need extensive rehab given her recent right knee replacement. Patient has completed ceftezole on course for UTI and this can be stopped today. Blood pressure intermittently uncontrolled and given her very high fall risk I am in favor of a conservative approach to blood pressure management. I think an appropriate goal for her would be approximately less than 150/90 given her current risk of falling as well as her age. Patient's only complaint today is that she needed to have a bowel movement and wanted a bedpan. She does have some right knee pain when asked specifically about this but she is not particularly concerned about it. Otherwise no new complaints. 10/05/2019 Patient very calm today and able to carry on a conversation though she is a bit sleepy. Her right knee incision site looks clean and is not very tender today. CBC reviewed and this is stable, BMP is pending. Patient is alert and oriented x3. Patient can go to SNF whenever they would like to take her. For some unknown reason she was placed on supplemental oxygen overnight although she has no history of requiring oxygen supplementation prior to admission but she does have a history of COPD which will make the patient encephalopathic from CO2 retention if we continue giving her oxygen needlessly. I discussed with the nurse the rationale to remove the oxygen as patient's oxygen saturation goal should be 89 to 92% and not any higher than this. Other than mild right knee pain patient does not articulate any other complaints. 10/06/2019 Patient has been in restraints overnight for being rambunctious and pulling at her IV. These were removed this morning as patient was much more calm. I have increased the frequency of her Depakote to 3 times daily. She is very calm and pleasant during my encounter today. I discussed with nursing who is concerned patient may be retaining urine, bladder scan revealed approximately 350 cc and patient was straight cathed. We will recheck her bladder scan in 2 to 4 hours and if she is still retaining greater than 200 cc we will put a Delcid catheter in. UA with reflex culture sent. We will also get a chest x-ray as patient has some coarse lung sounds today. She is probably high risk for aspiration due to her confusion per nursing, patient is only had some smeared bowel movements and has not had a full bowel movement in a few days. We will give her a laxative today. Her left hip x-ray that was done yesterday did not show any acute findings. 10/07/2019 Patient is a bit agitated this morning but is very redirectable when she becomes calm after I talked to her for a few minutes and give her some juice to drink. I do not believe she has any immediate need for restraints and we should try to avoid using these. She has had some possible urinary retention over the past few days and I discussed with nursing that we should monitor for this today. Patient's UTI treatment completed previously. Seems to be constipated for the past several days only some smears of stool but no real bowel movements. I have added a bowel regimen with Dulcolax. We can give her an enema if these are ineffective. Patient has a bed offer at [facility] and they will start the approval process on Wednesday reportedly. Patient has no new complaints today and is oriented to self/place/partial time. 10/08/2019 Patient was apparently much more combative and confused this morning. She was reportedly yelling and screaming at the nursing staff, confused that she has been for many days. Patient then reportedly had a syncopal event with almost immediate return to a calm demeanor and rather sleepy but easily arousable. EKG showed atrial fibrillation with a right bundle branch block which is not new when compared to her previous EKGs. Ordered echocardiogram and increased patient's Depakote to help keep her calm. Patient reportedly does not have any history of seizure activity. May need to order EEG if she has more episodes like this although I think it is much more likely if she is having actual syncope but it is cardiogenic precipitated by severe emotional distress causing her A. fib to deteriorate into a syncopal arrhythmia. 10/09/2019 Patient reportedly did not have any syncopal episodes since yesterday however she is still having emotional outbursts. These do seem to be much more blunted and less severe than they were previous to the increase in her Depakote dose. UA is clearly infected again likely due to recurrent urinary retention. She will need to have her Delcid in place for the next week or 2 until she can follow-up with a urologist in order to prevent further urinary retention, more UTI recurrences, and worsening delirium. She is still having some bloody urine output and I have instructed the nurse to regularly irrigate her Delcid catheter. This will ensure that there are not any clots blocking the tube as this can cause urinary obstruction which can lead to renal failure. She does not have any signs of renal failure yet. I have restarted the patient on ceftriaxone to treat her UTI. She will need a longer course of antibiotics to ensure the infection is cleared. I have also restarted her Lasix and stopped all IV fluids. I have ordered an echocardiogram which is been done but not read yet. I spoke with Dr. Krishna who states Dr. Morgan will actually be reading this echocardiogram at some point. He noted that when he briefly looked at the echo her EF seems significantly reduced. Patient cannot articulate any complaints today. Reason For Visit: AMS,ELGIN Physical Exam Vital Signs: Temp Pulse Resp BP Pulse Ox 97.3 F 84 21 H 149/83 H 96 10/09/19 12:43 10/09/19 12:43 10/09/19 12:43 10/09/19 12:43 10/09/19 12:43 Intake & Output 10/08/19 10/09/19 10/10/19 06:59 06:59 06:59 Intake Total 1200 1110 648 Output Total 651 582 8582 Balance 680 710 -902 Weight 90.4 kg 90.9 kg Exam: General appearance: PRESENT: no acute distress, cooperative, morbidly obese, more calm but not very talkative today Head exam: PRESENT: atraumatic, normocephalic Eye exam: PRESENT: conjunctiva pink Mouth exam: PRESENT: moist Respiratory exam: PRESENT: clear to auscultation molly. ABSENT: rales, rhonchi, wheezes Cardiovascular exam: PRESENT: irregular rhythm. ABSENT: diastolic murmur, rubs, systolic murmur GI/Abdominal exam: PRESENT: hernia, normal bowel sounds, soft. ABSENT: distended, guarding, mass, organolmegaly, rebound, tenderness Rectal exam: PRESENT: deferred Neurological exam: PRESENT: alert, awake, oriented to person. ABSENT: oriented to place, oriented to time, oriented to situation Psychiatric exam: PRESENT: appropriate affect, normal mood Skin exam: PRESENT: dry, intact, warm Results Laboratory Results: 10/09/19 05:54 10/09/19 09:41 10/09/19 10/09/19 10/09/19 05:54 05:54 05:55 WBC 9.5 RBC 4.20 Hgb 12.0 Hct 38.2 MCV 91 MCH 28.6 MCHC 31.5 L RDW 17.8 H Plt Count 213 Seg Neutrophils % 76.7 Sodium Cancelled Potassium Cancelled Chloride Cancelled Carbon Dioxide Cancelled Anion Gap Cancelled BUN Cancelled Creatinine Cancelled Est GFR ( Amer) Cancelled Est GFR (Non-Af Amer) Cancelled Glucose Cancelled Calcium Cancelled Urine Color RED Urine Appearance TURBID Urine pH 5.0 Ur Specific [place] 1.028 Urine Protein NEGATIVE Urine Glucose (UA) NEGATIVE Urine Ketones 20 H Urine Blood MODERATE H Urine RBC (Auto) >182 10/09/19 09:41 WBC RBC Hgb Hct MCV MCH MCHC RDW Plt Count Seg Neutrophils % Sodium 145.5 H Potassium 4.2 Chloride 109 H Carbon Dioxide 26 Anion Gap 11 BUN 11 Creatinine 0.44 L Est GFR ( Amer) > 60 Est GFR (Non-Af Amer) Glucose 125 H Calcium 9.0 Urine Color Urine Appearance Urine pH Ur Specific [place] Urine Protein Urine Glucose (UA) Urine Ketones Urine Blood Urine RBC (Auto) 09/29/19 09/29/19 10/08/19 13:40 13:40 08:32 Creatine Kinase 52 Troponin I 0.019 < 0.012 Impressions: Head CT 09/29/19 13:51 IMPRESSION: MILD CHRONIC CHANGES OF ATROPHY AND MICROVASCULAR ISCHEMIA. NO ACUTE PROCESS. EVIDENCE OF ACUTE STROKE: NO. Chest CT 09/29/19 16:01 IMPRESSION: Cardiomegaly with pulmonary vascular congestion and minimal ground- glass infiltrates likely representing mild interstitial edema. No other significant finding. Abdomen/Pelvis CT 09/29/19 16:04 IMPRESSION: Ascites. Cholelithiasis. Diverticulosis coli. Hip X-Ray 10/05/19 00:00 IMPRESSION: Advanced osteoarthritis. KUB X-Ray 10/06/19 00:00 IMPRESSION: Limited exam secondary to body habitus. Gaseous distended structure stomach. Chest X-Ray 10/06/19 14:36 IMPRESSION: Stable enlarged cardiac silhouette and central vascular congestion. No definitive superimposed airspace disease. Assessment and Plan - Diagnosis (1) Delirium superimposed on dementia Is this a current diagnosis for this admission?: Yes Plan: I discussed with patient's daughter who informs me that patient is being worked up for dementia and at baseline, she is usually alert and oriented x2, able to have conversation but very forgetful and often does remember what she was told. Also occasionally has hallucinations and delusions. Since knee arthroplasty, patient has been having more vivid hallucination episodes where she is seen calling for her dad. Based of conversation with daughter, it seems patient clearly has dementia with episodes of delirium. Takes risperidone 0.5 mg in a.m. and 1 mg nightly. Redirection and reorientation as needed, and pain control to help with delirium episodes. Avoid benzos. Psychiatric consulted 10/03/2019 Psychiatric valuation showed patient has moderate to severe underlying dementia but is high risk to be severely exacerbated after receiving anesthesia for several days up to a few weeks to return to baseline Acute UTI also playing a significant role in agitation, treating underlying source with antibiotics Risperidone continued from home medications which suggest she already has some underlying agitation and behavioral issues 10/04/2019 Rather calm today and able to carry on a normal conversation I suspect she can be discharged to rehab facility when they are willing to accept. Cover test is negative 10/05/2019 Patient continues to be calm and alert and mostly oriented She is a bit more somnolent today and I suspect this is due to excessive oxygen supplementation in the setting of longstanding COPD; oxygen saturation goal is 89 to 92% and COPD patient, discussed with nursing Limit use of sedating medications to a minimum 10/06/2019 Became combative overnight was put in restraints, these were removed this morning and patient has remained calm Depakote dose frequency increased to every 8 hours Highly suspicious that what the family believes is her baseline of fully alert and oriented caring for herself may not actually be her baseline 10/07/2019 Check Patient very redirectable, does not need restraints currently Psychiatric medications appear to be effective at the current dosing and frequency, continue these To reach out to family to see what the patient's actual baseline might be 10/08/2019 Patient became acutely more agitated this morning and had a syncopal episode probably due to severe emotional distress causing her A. fib to deteriorate into a syncopal arrhythmia Check UA and she may have a recurrent UTI given she has urinary retention Urinary retention may be causing worsening delirium on its own whether or not she has UTI Increase Depakote dose to help keep her calm and avoid worsening her A. fib 10/09/2019 Patient has developed a recurrent UTI again. Started on ceftriaxone UA infected, follow-up urine culture results Continue Delcid catheter for the next 1 to 2 weeks until the patient can follow- up with urology outpatient. We do not have urology here Frequently irrigate Delcid to ensure blood clots do not cause a backup of urine and obstructive nephropathy (2) Acute metabolic encephalopathy Is this a current diagnosis for this admission?: Yes Plan: Encephalopathy secondary to postanesthesia been UTI delirium superimposed on dementia. Notable improvement in mental status with treatment of UTI, IV hydration, resolution of ELGIN. Seems to be back to her baseline or very close to it which is mild intermittent confusion at baseline, likely has mild cognitive impairment or early dementia though family states patient is typically fully oriented at home 10/09/2019 Likely multifactorial in the setting of acute UTI and urinary retention with probable underlying dementia Treat UTI as above Seem to be calmer overnight with higher dose of Depakote (3) History of arthroplasty of right knee Is this a current diagnosis for this admission?: Yes (4) ELGIN (acute kidney injury) Is this a current diagnosis for this admission?: Yes (5) Cardiomyopathy Qualifiers: Cardiomyopathy type: unspecified Qualified Code(s): I42.9 - Cardiomyopathy, unspecified Is this a current diagnosis for this admission?: Yes (6) Paroxysmal atrial fibrillation Is this a current diagnosis for this admission?: Yes Plan: On Lopressor and Pradaxa Had a syncopal episode 10/07 after severe emotional agitation likely caused atrial fibrillation to deteriorate into a syncopal arrhythmia EKG showed A. fib with old right bundle branch block, rate controlled Echocardiogram done but not read Cardiology consult with Dr. Morgan 10/09/[address] Morgan Echocardiogram was done but not read, await results but we have been told that the preliminary read shows significantly reduced ejection fraction Restarted home Lasix and stopped all fluids (7) COPD (chronic obstructive pulmonary disease) Qualifiers: COPD type: chronic bronchitis Is this a current diagnosis for this admission?: Yes (8) Type 2 diabetes mellitus Is this a current diagnosis for this admission?: Yes (9) UTI (urinary tract infection) Qualifiers: Urinary tract infection type: acute cystitis Hematuria presence: with hematuria Qualified Code(s): N30.01 - Acute cystitis with hematuria Is this a current diagnosis for this admission?: Yes Plan: Urine culture growing Klebsiella pneumoniae. cefazolin to complete day four 10/02 Resolved Repeat UA did not show infection 10/09/2019 Recurrent as of 10/08 Restarted on ceftriaxone Urinary retention is likely causing recurrent UTI, keep Delcid in place until urology follow-up (10) Cough Is this a current diagnosis for this admission?: Yes (11) Acute urinary retention Is this a current diagnosis for this admission?: Yes - Time Time Spent with patient: 25-34 minutes Medications reviewed and adjusted accordingly: Yes Anticipated Discharge Disposition: [facility] Facility Anticipated Discharge Timeframe: within 72 hours - Inpatient Certification Based on my medical assessment, after consideration of the patient's comorbidities, presenting symptoms, or acuity I expect that the services needed warrant INPATIENT care.: Yes I certify that my determination is in accordance with my understanding of Medicare's requirements for reasonable and necessary INPATIENT services [42 CFR 412.3e].: Yes Medical Necessity: Significant Comorbidiites Make Outpatient Treatment Too Risky, Need Close Monitoring Due to Risk of Patient Decompensation, Need for IV Antibiotics, Risk of Complication if Not Cared For in Hospital, Risk of Diagn osis Which Will Require Inpatient Eval/Care/Monitoring
--- NOTE | 2019-10-09 19:42 | XCELERA REPORT ---
[address] [address] Transthoracic Echocardiogram Report Name: MOON RIDER Age: 83 yrs Gender: Female : 1935 Patient Status: Inpatient Patient Location: [facility]^A Study Date: 10/09/2019 07:10 AM Height: 63 in Weight: 200 lb BSA: 1.9 m2 Reason For Study: CHF Ordering Physician: JOSUE HAJI Performed By: Sue Maza Interpretation Summary Technically poor study. The left ventricle is borderline dilated. Left ventricular systolic function is severely reduced. The Ejection Fraction estimate is 30-35%. LV diastolic function could not be adequately assessed. There is moderate to severe global hypokinesis of the left ventricle. Cannot assess for regional wall motion abnormalities given the poor quality of the study. Severely elevated pulmonary pressures and estimated between 67 and 72 mmHg. Moderate to severe MR, severe TR, mld to moderate PI. Dilated IVC with less than 50% respiratory variation. MMode/2D Measurements & Calculations RVDd: 3.1 cm LVIDd: 5.7 cm FS: 14.7 % Ao root diam: 2.7 cm IVSd: 1.2 cm LVIDs: 4.9 cm EDV(Teich): 161.0 ml LVPWd: 1.1 cm ESV(Teich): 111.6 ml Ao root area: 5.8 cm2 EF(Teich): 30.7 % Doppler Measurements & Calculations MV E max rubens: MV dec slope: Ao V2 max: LV V1 max P.4 cm/sec 545.2 cm/sec2 104.4 cm/sec 4.2 mmHg MV dec time: 0.17 secAo max PG: LV V1 max: 4.4 mmHg 102.9 cm/sec PI end-d rubens: TR max rubens: 182.4 cm/sec 360.4 cm/sec TR max P.0 mmHg Left Ventricle The left ventricle is borderline dilated. Left ventricular systolic function is severely reduced. The Ejection Fraction estimate is 30-35%. LV diastolic function could not be adequately assessed. There is moderate to severe global hypokinesis of the left ventricle. Cannot assess for regional wall motion abnormalities given the poor quality of the study. Atria The right atrium is severely dilated. The left atrium is severely dilated. Mitral Valve The mitral valve is normal in structure and function. There is a moderate to severe amount of mitral regurgitation. Aortic Valve The aortic valve is normal in structure and functions normally. No aortic regurgitation is present. Tricuspid Valve The tricuspid is normal in structure and function. There is a severe amount of tricuspid regurgitation. Severely elevated pulmonary pressures and estimated between 67 and 72 mmHg. Pulmonic Valve The pulmonic valve is normal in structure and function. There is a mild to moderate amount of pulmonic regurgitation. Great Vessels The inferior vena cava appeared dilated and decreased < 50% with respiration (RAP 15-20 mmHg). Effusions There is no pericardial effusion. : JOSUE HAJI Antonio
[2019-10-09] MEDS: LATANOPROST 0.005% OPH SOLN 2.5 ML OU SCH (22:00)
[2019-10-09] MEDS: MELATONIN 3 MG TABLET PO SCH (22:00)
[2019-10-09] MEDS: LATANOPROST 0.005% OPH SOLN 2.5 ML OP SCH (23:54)
[2019-10-10 06:11] LABS: ABSOLUTE BASOPHILS # (AUTO) 0.1 10^3/uL (0.0-0.2); ABSOLUTE EOSINOPHILS # (AUTO) 0.1 10^3/uL (0.0-0.6); ABSOLUTE LYMPHOCYTES (AUTO) 1.4 10^3/uL (0.5-4.7); ABSOLUTE MONOCYTES (AUTO) 0.5 10^3/uL (0.1-1.4); ABSOLUTE NEUT (AUTO) 7.7 10^3/uL (1.7-8.2); BASOPHILS % (AUTO) 0.7 % (0-2); EOSINOPHILS % (AUTO) 0.9 % (0-6); HEMOGLOBIN 11.7 g/dL (12.0-15.5); LYMPHOCYTES % (AUTO) 14.5 % (13-45); MEAN CORPUSCULAR HEMOGLOBIN 28.8 pg (27.0-33.4); MEAN CORPUSCULAR HGB CONC 32.6 g/dL (32.0-36.0); MEAN CORPUSCULAR VOLUME 88 fl (80-97); MONOCYTES % (AUTO) 5.5 % (3-13); PLATELET COUNT 191 10^3/uL (150-450); RED BLOOD COUNT 4.08 10^6/uL (3.72-5.28); RED CELL DISTRIBUTION WIDTH 17.2 % (11.5-14.0); SEGMENTED NEUTROPHILS % (AUTO) 78.4 % (42-78); TOTAL CELLS COUNTED % (AUTO) 100 %; WHITE BLOOD COUNT 9.8 10^3/uL (4.0-10.5)
[2019-10-10 06:12] LABS: ANION GAP 7 (5-19); BLOOD UREA NITROGEN 10 mg/dL (7-20); CALCIUM 8.8 mg/dL (8.4-10.2); CARBON DIOXIDE 30 mmol/L (22-30); CHLORIDE 107 mmol/L (98-107); GLUCOSE 124 mg/dL (75-110); POTASSIUM 3.8 mmol/L (3.6-5.0)
[2019-10-10] MEDS: DIVALPROEX SODIUM 125 MG CAP.SPRINK PO SCH ×3 (06:41→23:07)
[2019-10-10] MEDS: LEVOTHYROXINE SODIUM 0.05 MG TABLET PO SCH (06:42)
[2019-10-10] MEDS: INSULIN LISPRO 100 UNIT/ML 3 ML VIAL SUBCUT SCH ×4 (08:55→22:58)
[2019-10-10] MEDS: SERTRALINE HCL 50 MG TABLET PO SCH (10:25)
[2019-10-10] MEDS: BUSPIRONE HCL 10 MG TABLET PO SCH ×2 (10:25→17:59)
[2019-10-10] MEDS: METOPROLOL TARTRATE 25 MG TABLET PO SCH ×2 (10:25→23:07)
[2019-10-10] MEDS: ASPIRIN 81 MG TABLET, ENT COATED PO SCH (10:26)
[2019-10-10] MEDS: CEFTRIAXONE 2 GM/D5W RTU 2 GM/50 ML RTUPB IV SCH (10:27)
[2019-10-10] MEDS: FUROSEMIDE INJ/PF 40 MG/4 ML SDV IV SCH ×2 (10:28→17:59)
[2019-10-10] MEDS: FAMOTIDINE 20 MG TABLET PO SCH ×2 (10:45→23:07)
[2019-10-10] MEDS: DOCUSATE SODIUM 100 MG CAPSULE PO SCH (10:46)
[2019-10-10] MEDS: CYANOCOBALAMIN (VITAMIN B-12) 1,000 MCG TABLET PO SCH (10:46)
[2019-10-10] MEDS: PANTOPRAZOLE SODIUM 40 MG TABLET.DR PO SCH (10:46)
--- NOTE | 2019-10-10 12:09 | PDOC CONSULTATION ---
Consultation Consult Date: 10/10/19 Attending physician:: JOSUE HAJI Provider Consulted: FRANCIS HAZEL Consult reason:: HF History of Present Illness Admission Date/PCP: 09/29/19 16:58 ANDI PINEDA MD History of Present Illness: MOON RIDER is a 83 year old female past medical history of COPD, CAD, A. fib, diabetes, hypothyroidism, arthritis, depression, dementia, status post right knee arthroplasty 4 days prior to admission who was admitted on 09/29/19 for evaluation of mental status changes and who is consulted to our service for evaluation of HF. The patient had experienced worsening episodes of delirium and was recently diagnosed with severe dementia. She was also discovered to have a UTI for which she is treated with IV Rocephin. A chest CT scan on admission demonstrated pulmonary vascular congestion among other findings and an abdominopelvic CT demonstrated ascites. Her echocardiogram yesterday demonstrated moderate to severe LV systolic dysfunction with an EF between 30 and 35% with a CXR on 10/06/19 still demonstrating vascular congestion. Her fluid balance since 09/30/19 is +3.4 L. Her telemetry demonstrates slow atrial fibrillation. Physical exam on 10/10/19: GENERAL: Asleep, does not answer questions, moans and groans during exam. HEENT: Normocephalic, atraumatic. Pupils equal. Sclerae anicteric. Oropharynx moist. NECK: No JVD. No carotid bruits. LUNGS: Clear to auscultation bilaterally. Normal respiratory effort without the use of accessory muscles or intercostal retractions. CARDIOVASCULAR: Regular rate and rhythm, normal S1 and S2 without murmurs, rubs, or gallops. PMI not displaced. ABDOMEN: No masses or tenderness to palpation. No bruit. No splenomegaly or hepatomegaly. No abdominal aorta bruit noted. EXTREMITIES: 2+ pitting edema bilaterally, no cyanosis, no clubbing. Surgical wound noted of the right knee. SKIN: No lesions or rashes. MUSCULOSKELETAL: No chest tenderness to palpation. Past Medical History Cardiac Medical History: Reports: Coronary Artery Disease, Hypertension, Heart Murmur Denies: Atrial Fibrillation, Congestive Heart Failure, Myocardial Infarction, Hyperlipidema, Peripheral Vascular Disease Pulmonary Medical History: Reports: Asthma, Chronic Obstructive Pulmonary Disease (COPD) Endocrine Medical History: Reports: Diabetes Mellitus Type 2 Denies: Hyperthyroidism, Hypothyroidism Malignancy Medical History: Denies: Leukemia GI Medical History: Musculoskeltal Medical History: Reports: Arthritis Denies: Fibromyalgia Psychiatric Medical History: Reports: Depression Hematology: Denies: Anemia, Hemophilia, Sickle Cell Disease Infectious Medical History: Denies: HIV Past Surgical History Past Surgical History: Reports: Cardiac Catheterization - double bipass, Hysterectomy, Tonsillectomy, Other - Coronary artery bypass graft Denies: Amputation, Appendectomy, Section, Cholecystectomy, Coronary Artery Bypass Graft, Gastric Bypass Surgery, Herniorrhaphy, Mastectomy, Pacemaker, Tubal Ligation Social History Smoking Status: Unknown if Ever Smoked Frequency of Alcohol Use: Occasional Hx Recreational Drug Use: Yes Drugs: None Family History Family History: Reviewed & Not Pertinent, DM Parental Family History Reviewed: Yes Children Family History Reviewed: Yes Sibling(s) Family History Reviewed.: Yes Medication/Allergy Home Medications: Albuterol Sulfate [Proair HFA Inhalation Aerosol 8.5 gm MDI] 2 puff IH Q6HP PRN 08/17/17 Aspirin [Ecotrin 81 mg EC Tablet] 81 mg PO DAILY 08/17/17 Bimatoprost [Lumigan 0.01% Oph Soln 2.5 ml/Bottle] 1 drop OU QHS 08/17/17 Carboxymethylcellulose Sodium [Refresh Tears] 1 drop OU DAILYP PRN 08/17/17 Dabigatran Etexilate Mesylate [Pradaxa] 150 mg PO Q12 08/17/17 Ergocalciferol (Vitamin D2) [Drisdol 50,000 unit (1.25MG) Capsule] 50,000 unit PO CLARK@1000 08/17/17 Furosemide [Lasix 40 mg Tablet] 40 mg PO DAILY 08/17/17 Insulin Glargine,Hum.rec.anlog [Lantus Insulin 100 Unit/mL Insulin Pen] 40 units SQ DAILY 08/17/17 Levothyroxine Sodium [Synthroid 0.05 mg Tablet] 0.05 mg PO Q6AM 08/17/17 Magnesium Oxide [Mag-Ox 400 mg Tablet] 400 mg PO Q12 08/17/17 Metformin HCl [Glucophage] 1,000 mg PO BIDBS 08/17/17 Ondansetron HCl [Zofran 4 mg Tablet] 4 mg PO Q8HP PRN 08/17/17 Potassium Chloride [Klor-Con M20] 20 meq PO DAILY 08/17/17 Pravastatin Sodium [Pravachol] 40 mg PO DAILY 08/17/17 Sertraline HCl [Zoloft] 100 mg PO DAILY 08/17/17 Tiotropium [place] [Spiriva Handihaler 5 Cap/Kit (18 Mcg/Cap)] 1 puff IH DAILY 08/17/17 Tramadol HCl [Ultram 50 mg Tablet] 50 mg PO Q8HP PRN 08/17/17 Acetaminophen [Acetaminophen Extra Strength] 500 mg PO Q6HP PRN 09/25/19 Albuterol Sulfate [Ventolin 0.083% Neb 2.5 mg/3 ml Ampul] 1 vial NEB RTTIDP PRN 09/25/19 Buspirone HCl [Buspar 10 mg Tablet] 5 mg PO BID 09/25/19 Cyanocobalamin (Vitamin B-12) [B-12] 1,000 mcg PO DAILY 09/25/19 Docusate Sodium [Colace 100 mg Capsule] 100 mg PO DAILYP PRN 09/25/19 Latanoprost [Xalatan 0.005% Oph Soln 2.5 ml] 1 drop OP QHS 09/25/19 Metoprolol Tartrate [Lopressor 25 mg Tablet] 12.5 mg PO Q12 09/25/19 Pantoprazole Sodium [Protonix [address] Tablet] 40 mg PO QAM 09/25/19 Risperidone [Risperdal 1 mg Tablet] 1 mg PO QHS 09/25/19 Sertraline HCl 25 mg PO DAILY 09/25/19 Oxycodone HCl [Oxy-Ir 5 mg Tablet] 5 mg PO Q6HP PRN 09/29/19 Risperidone [Risperdal 1 mg Tablet] 0.5 mg PO DAILY 10/01/19 Allergies/Adverse Reactions: Penicillins Allergy (Verified 09/25/19 07:02) Physical Exam Vital Signs: Temp Pulse Resp BP Pulse Ox 97.8 F 80 20 145/81 H 100 10/09/19 23:39 10/10/19 02:00 10/09/19 23:39 10/09/19 23:39 10/09/19 23:39 Intake & Output 10/08/19 10/09/19 10/10/19 06:59 06:59 06:59 Intake Total 1200 1110 648 Output Total 038 289 3539 Balance 680 710 -2022 Weight 90.4 kg 90.9 kg Results Laboratory Results: 10/09/19 05:54 10/09/19 09:41 10/09/19 10/09/19 10/09/19 05:54 05:54 05:55 WBC 9.5 RBC 4.20 Hgb 12.0 Hct 38.2 MCV 91 MCH 28.6 MCHC 31.5 L RDW 17.8 H Plt Count 213 Seg Neutrophils % 76.7 Sodium Cancelled Potassium Cancelled Chloride Cancelled Carbon Dioxide Cancelled Anion Gap Cancelled BUN Cancelled Creatinine Cancelled Est GFR ( Amer) Cancelled Est GFR (Non-Af Amer) Cancelled Glucose Cancelled Calcium Cancelled Urine Color RED Urine Appearance TURBID Urine pH 5.0 Ur Specific [place] 1.028 Urine Protein NEGATIVE Urine Glucose (UA) NEGATIVE Urine Ketones 20 H Urine Blood MODERATE H Urine RBC (Auto) >182 10/09/19 09:41 WBC RBC Hgb Hct MCV MCH MCHC RDW Plt Count Seg Neutrophils % Sodium 145.5 H Potassium 4.2 Chloride 109 H Carbon Dioxide 26 Anion Gap 11 BUN 11 Creatinine 0.44 L Est GFR ( Amer) > 60 Est GFR (Non-Af Amer) Glucose 125 H Calcium 9.0 Urine Color Urine Appearance Urine pH Ur Specific [place] Urine Protein Urine Glucose (UA) Urine Ketones Urine Blood Urine RBC (Auto) 09/29/19 09/29/19 10/08/19 13:40 13:40 08:32 Creatine Kinase 52 Troponin I 0.019 < 0.012 Impressions: Head CT 09/29/19 13:51 IMPRESSION: MILD CHRONIC CHANGES OF ATROPHY AND MICROVASCULAR ISCHEMIA. NO ACUTE PROCESS. EVIDENCE OF ACUTE STROKE: NO. Chest CT 09/29/19 16:01 IMPRESSION: Cardiomegaly with pulmonary vascular congestion and minimal ground- glass infiltrates likely representing mild interstitial edema. No other significant finding. Abdomen/Pelvis CT 09/29/19 16:04 IMPRESSION: Ascites. Cholelithiasis. Diverticulosis coli. Hip X-Ray 10/05/19 00:00 IMPRESSION: Advanced osteoarthritis. KUB X-Ray 10/06/19 00:00 IMPRESSION: Limited exam secondary to body habitus. Gaseous distended structure stomach. Chest X-Ray 10/06/19 14:36 IMPRESSION: Stable enlarged cardiac silhouette and central vascular congestion. No definitive superimposed airspace disease. 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 Given her age and atrial dysrhythmia it is likely to be multifactorial given her increased risk for CAD as well as the possibility of uncontrolled atrial fibrillation in the past. She clearly has severe dementia which makes her ineligible for invasive work up treatments as well as advanced therapies such as ICD and others therefore we will treat medically with afterload reduction, BB, diuresis, fluid restriction. She continues to be fluid overloaded. Recommendations: -Increase lasix to 40mg IV BID. -Start Entresto 24/26 mg BID. -Low sodium diet. -Restrict fluids to 1500 cc daily. -Avoid unnecessary IV fluids. -Strict intake and output. -Daily BMP and Mg and replace electrolytes as necessary. -BNP. -Repeat chest x-ray. -Continue with cardiac telemetry. (2) Cardiomyopathy Qualifiers: Cardiomyopathy type: unspecified Qualified Code(s): I42.9 - Cardiomyopathy, unspecified Is this a current diagnosis for this admission?: Yes Plan: Unclear etiology but appears to be multifactorial. Please see #1 above for recommendations. (3) Paroxysmal atrial fibrillation Is this a current diagnosis for this admission?: Yes Plan: Rate-controlled and anticoagulated with pradaxa without bleeding compications. Recomendations: -Continue with current management.
[2019-10-10] MEDS: DABIGATRAN ETEXILATE 150 MG CAPSULE PO SCH (13:04)
[2019-10-10] MEDS: FLUTICASONE/VILANTEROL 100-25 MCG/DOSE IH SCH (13:04)
--- NOTE | 2019-10-10 13:10 | PDOC PROGRESS REPORT ---
Subjective Subjective:: Patient continues to be delirious status post right knee replacement, psychosocial evaluation revealed she likely has underlying moderate to severe dementia which is high risk to be severely exacerbated in the setting of anesthesia. Per their evaluation, this can last for days to weeks. UTI is being treated, urine culture initially growing Klebsiella pneumoniae. COVID testing is pending. 10/04/2019 COVID testing has resulted as negative this afternoon. According to social work, nursing facilities are refusing to accept the patient until her behavior is a bit more calm. Patient was yelling a bit intermittently today but much less than yesterday. She was able to carry on a relatively normal conversation with me today and is almost fully oriented knowing who she is, where she is, and the date including the month and year as well as who is the current president. She speaks about a few nonsensical topics but is easily redirected. I think her mentation currently is about as good as it is going to get. She will need extensive rehab given her recent right knee replacement. Patient has completed ceftezole on course for UTI and this can be stopped today. Blood pressure intermittently uncontrolled and given her very high fall risk I am in favor of a conservative approach to blood pressure management. I think an appropriate goal for her would be approximately less than 150/90 given her current risk of falling as well as her age. Patient's only complaint today is that she needed to have a bowel movement and wanted a bedpan. She does have some right knee pain when asked specifically about this but she is not particularly concerned about it. Otherwise no new complaints. 10/05/2019 Patient very calm today and able to carry on a conversation though she is a bit sleepy. Her right knee incision site looks clean and is not very tender today. CBC reviewed and this is stable, BMP is pending. Patient is alert and oriented x3. Patient can go to SNF whenever they would like to take her. For some unknown reason she was placed on supplemental oxygen overnight although she has no history of requiring oxygen supplementation prior to admission but she does have a history of COPD which will make the patient encephalopathic from CO2 retention if we continue giving her oxygen needlessly. I discussed with the nurse the rationale to remove the oxygen as patient's oxygen saturation goal should be 89 to 92% and not any higher than this. Other than mild right knee pain patient does not articulate any other complaints. 10/06/2019 Patient has been in restraints overnight for being rambunctious and pulling at her IV. These were removed this morning as patient was much more calm. I have increased the frequency of her Depakote to 3 times daily. She is very calm and pleasant during my encounter today. I discussed with nursing who is concerned patient may be retaining urine, bladder scan revealed approximately 350 cc and patient was straight cathed. We will recheck her bladder scan in 2 to 4 hours and if she is still retaining greater than 200 cc we will put a Delcid catheter in. UA with reflex culture sent. We will also get a chest x-ray as patient has some coarse lung sounds today. She is probably high risk for aspiration due to her confusion per nursing, patient is only had some smeared bowel movements and has not had a full bowel movement in a few days. We will give her a laxative today. Her left hip x-ray that was done yesterday did not show any acute findings. 10/07/2019 Patient is a bit agitated this morning but is very redirectable when she becomes calm after I talked to her for a few minutes and give her some juice to drink. I do not believe she has any immediate need for restraints and we should try to avoid using these. She has had some possible urinary retention over the past few days and I discussed with nursing that we should monitor for this today. Patient's UTI treatment completed previously. Seems to be constipated for the past several days only some smears of stool but no real bowel movements. I have added a bowel regimen with Dulcolax. We can give her an enema if these are ineffective. Patient has a bed offer at [facility] and they will start the approval process on Wednesday reportedly. Patient has no new complaints today and is oriented to self/place/partial time. 10/08/2019 Patient was apparently much more combative and confused this morning. She was reportedly yelling and screaming at the nursing staff, confused that she has been for many days. Patient then reportedly had a syncopal event with almost immediate return to a calm demeanor and rather sleepy but easily arousable. EKG showed atrial fibrillation with a right bundle branch block which is not new when compared to her previous EKGs. Ordered echocardiogram and increased patient's Depakote to help keep her calm. Patient reportedly does not have any history of seizure activity. May need to order EEG if she has more episodes like this although I think it is much more likely if she is having actual syncope but it is cardiogenic precipitated by severe emotional distress causing her A. fib to deteriorate into a syncopal arrhythmia. 10/09/2019 Patient reportedly did not have any syncopal episodes since yesterday however she is still having emotional outbursts. These do seem to be much more blunted and less severe than they were previous to the increase in her Depakote dose. UA is clearly infected again likely due to recurrent urinary retention. She will need to have her Delcid in place for the next week or 2 until she can follow-up with a urologist in order to prevent further urinary retention, more UTI recurrences, and worsening delirium. She is still having some bloody urine output and I have instructed the nurse to regularly irrigate her Delcid catheter. This will ensure that there are not any clots blocking the tube as this can cause urinary obstruction which can lead to renal failure. She does not have any signs of renal failure yet. I have restarted the patient on ceftriaxone to treat her UTI. She will need a longer course of antibiotics to ensure the infection is cleared. I have also restarted her Lasix and stopped all IV fluids. I have ordered an echocardiogram which is been done but not read yet. I spoke with Dr. Krishna who states Dr. Morgan will actually be reading this echocardiogram at some point. He noted that when he briefly looked at the echo her EF seems significantly reduced. Patient cannot articulate any complaints today. 10/10/2019 Echocardiogram shows EF is down to 30 to 35%. Cardiology has seen patient and recommended increasing Lasix to 40 mg twice daily, adding Entresto twice daily, fluid restriction, conservative medical management. They recommended against invasive procedures due to severe dementia and comorbidities. Patient is intermittently awake and alert, sometimes agitated. I put her back on her home Risperdal and lower the dose of her Depakote. She is still having some blood in her urine as I can see in the Delcid bag. We will hold her Pradaxa for the next 2 days until this clears up. As long as she does not pull on it anymore, I expect her urine to clear rather quickly. If she develops blood clots that block off her Delcid catheter, she will need emergent transfer to facility with urology. Thankfully, this is not happened so far. Her urine is clearly infected and the culture is growing gram-negative rods, most likely same bacteria she grew before. She is treated with ceftriaxone. Reason For Visit: AMS,ELGIN Physical Exam Vital Signs: Temp Pulse Resp BP Pulse Ox 98.0 F 87 19 150/65 H 97 10/10/19 11:52 10/10/19 11:52 10/10/19 11:52 10/10/19 11:52 10/10/19 11:52 Intake & Output 10/09/19 10/10/19 10/11/19 06:59 06:59 06:59 Intake Total 1110 768 50 Output Total 400 2790 Balance 710 50 Weight 90.9 kg 82.2 kg Exam: General appearance: PRESENT: no acute distress, cooperative, morbidly obese, a bit agitated today but not combative, Delcid catheter draining red-tinged urine Head exam: PRESENT: atraumatic, normocephalic Eye exam: PRESENT: conjunctiva pink Mouth exam: PRESENT: moist Respiratory exam: PRESENT: clear to auscultation molly. ABSENT: rales, rhonchi, wheezes Cardiovascular exam: PRESENT: irregular rhythm. ABSENT: diastolic murmur, rubs, systolic murmur GI/Abdominal exam: PRESENT: hernia, normal bowel sounds, soft. ABSENT: distended, guarding, mass, organolmegaly, rebound, tenderness Rectal exam: PRESENT: deferred Neurological exam: PRESENT: alert, awake, oriented to person. ABSENT: oriented to place, oriented to time, oriented to situation Psychiatric exam: PRESENT: appropriate affect, normal mood Skin exam: PRESENT: dry, intact, warm Results Laboratory Results: 10/10/19 05:17 10/10/19 05:17 10/10/19 10/10/19 05:17 05:17 WBC 9.8 RBC 4.08 Hgb 11.7 L Hct 36.0 MCV 88 MCH 28.8 MCHC 32.6 RDW 17.2 H Plt Count 191 Seg Neutrophils % 78.4 H Sodium 143.6 Potassium 3.8 Chloride 107 Carbon Dioxide 30 Anion Gap 7 BUN 10 Creatinine 0.45 L Est GFR ( Amer) > 60 Glucose 124 H Calcium 8.8 09/29/19 09/29/19 10/08/19 13:40 13:40 08:32 Creatine Kinase 52 Troponin I 0.019 < 0.012 Impressions: Head CT 09/29/19 13:51 IMPRESSION: MILD CHRONIC CHANGES OF ATROPHY AND MICROVASCULAR ISCHEMIA. NO ACUTE PROCESS. EVIDENCE OF ACUTE STROKE: NO. Chest CT 09/29/19 16:01 IMPRESSION: Cardiomegaly with pulmonary vascular congestion and minimal ground-glass infiltrates likely representing mild interstitial edema. No other significant finding. Abdomen/Pelvis CT 09/29/19 16:04 IMPRESSION: Ascites. Cholelithiasis. Diverticulosis coli. Hip X-Ray 10/05/19 00:00 IMPRESSION: Advanced osteoarthritis. KUB X-Ray 10/06/19 00:00 IMPRESSION: Limited exam secondary to body habitus. Gaseous distended structure stomach. Chest X-Ray 10/06/19 14:36 IMPRESSION: Stable enlarged cardiac silhouette and central vascular congestion. No definitive superimposed airspace disease. Assessment and Plan - Diagnosis (1) Delirium superimposed on dementia Is this a current diagnosis for this admission?: Yes Plan: I discussed with patient's daughter who informs me that patient is being worked up for dementia and at baseline, she is usually alert and oriented x2, able to have conversation but very forgetful and often does remember what she was told. Also occasionally has hallucinations and delusions. Since knee arthroplasty, lisa fierro has been having more vivid hallucination episodes where she is seen calling for her dad. Based of conversation with daughter, it seems patient clearly has dementia with episodes of delirium. Takes risperidone 0.5 mg in a.m. and 1 mg nightly. Redirection and reorientation as needed, and pain control to help with delirium episodes. Avoid benzos. Psychiatric consulted 10/03/2019 Psychiatric valuation showed patient has moderate to severe underlying dementia but is high risk to be severely exacerbated after receiving anesthesia for several days up to a few weeks to return to baseline Acute UTI also playing a significant role in agitation, treating underlying source with antibiotics Risperidone continued from home medications which suggest she already has some underlying agitation and behavioral issues 10/04/2019 Rather calm today and able to carry on a normal conversation I suspect she can be discharged to rehab facility when they are willing to accept. Cover test is negative 10/05/2019 Patient continues to be calm and alert and mostly oriented She is a bit more somnolent today and I suspect this is due to excessive oxygen supplementation in the setting of longstanding COPD; oxygen saturation goal is 89 to 92% and COPD patient, discussed with nursing Limit use of sedating medications to a minimum 10/06/2019 Became combative overnight was put in restraints, these were removed this morning and patient has remained calm Depakote dose frequency increased to every 8 hours Highly suspicious that what the family believes is her baseline of fully alert and oriented caring for herself may not actually be her baseline 10/07/2019 Check Patient very redirectable, does not need restraints currently Psychiatric medications appear to be effective at the current dosing and frequency, continue these To reach out to family to see what the patient's actual baseline might be 10/08/2019 Patient became acutely more agitated this morning and had a syncopal episode probably due to severe emotional distress causing her A. fib to deteriorate into a syncopal arrhythmia Check UA and she may have a recurrent UTI given she has urinary retention Urinary retention may be causing worsening delirium on its own whether or not she has UTI Increase Depakote dose to help keep her calm and avoid worsening her A. fib 10/09/2019 Patient has developed a recurrent UTI again. Started on ceftriaxone UA infected, follow-up urine culture results Continue Delcid catheter for the next 1 to 2 weeks until the patient can follow- up with urology outpatient. We do not have urology here Frequently irrigate Delcid to ensure blood clots do not cause a backup of urine and obstructive nephropathy 10/10/2019 Multifactorial Still intermittently agitated, restarted home Risperdal twice daily dosing, lower dose of Depakote Continuing UTI treatment with ceftriaxone (2) Acute metabolic encephalopathy Is this a current diagnosis for this admission?: Yes (3) History of arthroplasty of right knee Is this a current diagnosis for this admission?: Yes (4) ELGIN (acute kidney injury) Is this a current diagnosis for this admission?: Yes (5) Cardiomyopathy Qualifiers: Cardiomyopathy type: unspecified Qualified Code(s): I42.9 - Cardiomyopathy, unspecified Is this a current diagnosis for this admission?: Yes (6) Paroxysmal atrial fibrillation Is this a current diagnosis for this admission?: Yes (7) COPD (chronic obstructive pulmonary disease) Qualifiers: COPD type: chronic bronchitis Is this a current diagnosis for this admission?: Yes (8) Type 2 diabetes mellitus Is this a current diagnosis for this admission?: Yes (9) UTI (urinary tract infection) Qualifiers: Urinary tract infection type: acute cystitis Hematuria presence: with hematuria Qualified Code(s): N30.01 - Acute cystitis with hematuria Is this a current diagnosis for this admission?: Yes Plan: Urine culture growing Klebsiella pneumoniae. cefazolin to complete day four 10/02 Resolved Repeat UA did not show infection 10/09/2019 Recurrent as of 10/08 Restarted on ceftriaxone Urinary retention is likely causing recurrent UTI, keep Delcid in place until urology follow-up 10/10/2019 Urine culture growing gram-negative rods, likely same as previous bacteria Continue ceftriaxone Hematuria on Pradaxa, hold this for 2 days, expect urine to clear up quickly (10) Cough Is this a current diagnosis for this admission?: Yes (11) Acute urinary retention Is this a current diagnosis for this admission?: Yes Plan: Intermittently retaining urine Delcid catheter placed, patient pulled on her Delcid and some bloody urine came out afterwards UA with reflex culture Plan on keeping Delcid until urology follow-up outpatient, patient is extremely high risk to continue retaining and having recurrent UTI - Time Time Spent with patient: 35 or more minutes Medications reviewed and adjusted accordingly: Yes Anticipated Discharge Disposition: Usp Facility Anticipated Discharge Timeframe: within 72 hours - Inpatient Certification Based on my medical assessment, after consideration of the patient's comorbidit ies, presenting symptoms, or acuity I expect that the services needed warrant INPATIENT care.: Yes I certify that my determination is in accordance with my understanding of Me manuel's requirements for reasonable and necessary INPATIENT services [42 CFR 412.3e].: Yes Medical Necessity: Significant Comorbidiites Make Outpatient Treatment Too Risky, Need Close Monitoring Due to Risk of Patient Decompensation, Need for IV Antibiotics, Risk of Complication if Not Cared For in Hospital, Risk of Diagnosis Which Will Require Inpatient Eval/Care/Monitoring
[2019-10-10] MEDS: SACUBITRIL/VALSARTAN 24 MG/26 MG TABLET PO SCH (17:59)
[2019-10-10] MEDS: MELATONIN 3 MG TABLET PO SCH (23:06)
[2019-10-10] MEDS: LATANOPROST 0.005% OPH SOLN 2.5 ML OU SCH (23:25)
[2019-10-11] MEDS: DIVALPROEX SODIUM 125 MG CAP.SPRINK PO SCH ×3 (07:07→22:02)
[2019-10-11] MEDS: LEVOTHYROXINE SODIUM 0.05 MG TABLET PO SCH (07:08)
[2019-10-11] MEDS: INSULIN LISPRO 100 UNIT/ML 3 ML VIAL SUBCUT SCH ×4 (09:05→22:03)
--- NOTE | 2019-10-11 10:21 | PDOC PROGRESS REPORT ---
Subjective Progress Note for:: 10/11/19 Subjective:: Difficult to arouse this morning. Evidently had limited sleep last night. Breathing is comfortable. Does not appear to be in distress. Reason For Visit: AMS,ELGIN Physical Exam Vital Signs: Temp Pulse Resp BP Pulse Ox 97.4 F 75 19 146/65 H 92 10/11/19 08:59 10/11/19 08:59 10/11/19 08:59 10/11/19 08:59 10/11/19 08:59 Intake & Output 10/10/19 10/11/19 10/12/19 06:59 06:59 06:59 Intake Total 768 810 Output Total 2790 5500 Balance -2021 Weight 82.2 kg 84 kg General appearance: PRESENT: no acute distress, other - Difficult to awaken. ABSENT: cooperative Head exam: PRESENT: atraumatic, normocephalic Ear exam: PRESENT: normal external ear exam. ABSENT: bleeding, drainage Teeth exam: PRESENT: edentulous Respiratory exam: PRESENT: clear to auscultation molly, symmetrical, unlabored, other - Unable to comply with deep inspiration. ABSENT: rales, rhonchi, tachypnea, wheezes Cardiovascular exam: PRESENT: RRR, +S1, +S2. ABSENT: tachycardia GI/Abdominal exam: PRESENT: normal bowel sounds, soft, other - Pendulous abdomen. ABSENT: tenderness Rectal exam: PRESENT: deferred Gentrourinary exam: PRESENT: indwelling catheter - With hematuria Extremities exam: PRESENT: +1 edema Musculoskeletal exam: ABSENT: ambulatory Neurological exam: PRESENT: awake - Somnolent but does open her eyes, oriented to person. ABSENT: oriented to place, oriented to time, oriented to situation Psychiatric exam: PRESENT: flat affect. ABSENT: agitated, anxious Results Laboratory Results: 10/10/19 05:17 10/10/19 05:17 09/29/19 09/29/19 10/08/19 13:40 13:40 08:32 Creatine Kinase 52 Troponin I 0.019 < 0.012 Impressions: Head CT 09/29/19 13:51 IMPRESSION: MILD CHRONIC CHANGES OF ATROPHY AND MICROVASCULAR ISCHEMIA. NO ACUTE PROCESS. EVIDENCE OF ACUTE STROKE: NO. Chest CT 09/29/19 16:01 IMPRESSION: Cardiomegaly with pulmonary vascular congestion and minimal ground- glass infiltrates likely representing mild interstitial edema. No other significant finding. Abdomen/Pelvis CT 09/29/19 16:04 IMPRESSION: Ascites. Cholelithiasis. Diverticulosis coli. Hip X-Ray 10/05/19 00:00 IMPRESSION: Advanced osteoarthritis. KUB X-Ray 10/06/19 00:00 IMPRESSION: Limited exam secondary to body habitus. Gaseous distended structure stomach. Chest X-Ray 10/06/19 14:36 IMPRESSION: Stable enlarged cardiac silhouette and central vascular congestion. No definitive superimposed airspace disease. Assessment and Plan - Diagnosis (1) Delirium superimposed on dementia Is this a current diagnosis for this admission?: Yes Plan: Was not agitated earlier today. Somewhat somnolent currently. Continue current medication regimen. Avoid benzodiazepine therapy. (2) Acute metabolic encephalopathy Is this a current diagnosis for this admission?: Yes Plan: Most likely due to urinary infection. I believe the patient is back to her baseline. (3) ELGIN (acute kidney injury) Is this a current diagnosis for this admission?: Yes Plan: Resolved with fluids (4) History of arthroplasty of right knee Is this a current diagnosis for this admission?: Yes Plan: Currently with impaired mobility. The goal is residential placement with ongoing physical therapy (5) Hyperglycemia due to type 2 diabetes mellitus Qualifiers: Diabetes mellitus nursing home insulin use: with watermelon inspector use Qualified Code(s): E11.65 - Type 2 diabetes mellitus with hyperglycemia; Z79.4 - halfway (current) use of insulin Is this a current diagnosis for this admission?: Yes Plan: Continue current regimen. Reasonable glucose control. (6) Acute urinary retention Is this a current diagnosis for this admission?: Yes Plan: Delcid catheter in place. Would benefit from urology evaluation to try to dis cover etiology of recurrent urinary tract infections. (7) Cardiomyopathy Qualifiers: Cardiomyopathy type: unspecified Qualified Code(s): I42.9 - Cardiomyopathy, unspecified Is this a current diagnosis for this admission?: Yes Plan: History of LV dysfunction with EF of 35 to 40% on TTE in 2018. Initially furosemide was held but has been resumed and currently at 40 mg IV every 12 hours. Will decrease to once daily. (8) Cough Is this a current diagnosis for this admission?: Yes Plan: Resolved (9) Paroxysmal atrial fibrillation Is this a current diagnosis for this admission?: Yes Plan: Well-controlled. Continue current regimen. (10) COPD (chronic obstructive pulmonary disease) Qualifiers: COPD type: chronic bronchitis Is this a current diagnosis for this admission?: Yes Plan: Brio Ellipta and as needed nebulizer (11) UTI (urinary tract infection) Qualifiers: Urinary tract infection type: acute cystitis Hematuria presence: with hematuria Qualified Code(s): N30.01 - Acute cystitis with hematuria Is this a current diagnosis for this admission?: Yes Plan: Unfortunately the Klebsiella isolated is resistant to ceftriaxone. Antibiotic changed to cefepime. - Time Time Spent with patient: 15-24 minutes Anticipated Discharge Disposition: Half-Way Facility Anticipated Discharge Timeframe: when bed available
[2019-10-11] MEDS: CEFTRIAXONE 2 GM/D5W RTU 2 GM/50 ML RTUPB IV SCH (10:23)
[2019-10-11] MEDS: FUROSEMIDE INJ/PF 40 MG/4 ML SDV IV SCH ×2 (10:23→17:41)
[2019-10-11] MEDS: PANTOPRAZOLE SODIUM 40 MG TABLET.DR PO SCH (11:05)
[2019-10-11] MEDS: RISPERIDONE 1 MG TABLET PO SCH (11:05)
[2019-10-11] MEDS: CYANOCOBALAMIN (VITAMIN B-12) 1,000 MCG TABLET PO SCH (11:06)
[2019-10-11] MEDS: FLUTICASONE/VILANTEROL 100-25 MCG/DOSE IH SCH (11:06)
--- NOTE | 2019-10-11 11:26 | PDOC PROGRESS REPORT ---
Subjective Progress Note for:: 10/11/19 Subjective:: MOON RIDER is a 83 year old female past medical history of COPD, CAD, A. fib, diabetes, hypothyroidism, arthritis, depression, dementia, status post right knee arthroplasty 4 days prior to admission who was admitted on 09/29/19 for evaluation of mental status changes and who is consulted to our service for evaluation of HF. The patient had experienced worsening episodes of delirium and was recently diagnosed with severe dementia. She was also discovered to have a UTI for which she is treated with IV Rocephin. A chest CT scan on admission demonstrated pulmonary vascular congestion among other findings and an abdominopelvic CT demonstrated ascites. Her echocardiogram yesterday demonstrated moderate to severe LV systolic dysfunction with an EF between 30 and 35% with a CXR on 10/06/19 still demonstrating vascular congestion. Her fluid balance since 09/30/19 is +3.4 L. Her telemetry demonstrates slow atrial fibrillation. 10/11/19: The patient had an uneventful night from the CV standpoint. The nursing staff reports that the patient was awake all night and having episodes of agitation. Her nurse indicates that she fell asleep earlier this morning. She is found resting comfortably in bed and at sleep. She is difficult to wake up. She has responded very well to diuresis after addition on Entresto and her fluid balance is now only +554 ml. Her Pradaxa has been held due to hematuria secondary to trauma in her Delcid as the patient was pulling on the catheter. This morning the Delcid catheter demonstrates less blood than yesterday. Her telemetry shows slow atrial fibrillation. Physical exam on 10/11/19: GENERAL: Asleep, does not answer questions. HEENT: Normocephalic, atraumatic. Pupils equal. Sclerae anicteric. Oropharynx moist. NECK: No JVD. No carotid bruits. LUNGS: Clear to auscultation bilaterally. Normal respiratory effort without the use of accessory muscles or intercostal retractions. CARDIOVASCULAR: Irregularly irregular rate and rhythm, normal S1 and S2 without murmurs, rubs, or gallops. PMI not displaced. ABDOMEN: No masses or tenderness to palpation. No bruit. No splenomegaly or hepatomegaly. No abdominal aorta bruit noted. EXTREMITIES: 2+ pitting edema bilaterally, no cyanosis, no clubbing. Surgical wound noted of the right knee. SKIN: No lesions or rashes. MUSCULOSKELETAL: No chest tenderness to palpation. Reason For Visit: AMS,ELGIN Physical Exam Vital Signs: Temp Pulse Resp BP Pulse Ox 98.9 F 80 20 166/67 H 98 10/11/19 00:00 10/11/19 02:00 10/11/19 00:00 10/11/19 00:00 10/11/19 00:00 Intake & Output 10/09/19 10/10/19 10/11/19 06:59 06:59 06:59 Intake Total 1110 768 810 Output Total 400 2790 5500 Balance 204 -5137 -2724 Weight 90.9 kg 82.2 kg 84 kg Results Laboratory Results: 10/10/19 05:17 10/10/19 05:17 09/29/19 09/29/19 10/08/19 13:40 13:40 08:32 Creatine Kinase 52 Troponin I 0.019 < 0.012 Impressions: Head CT 09/29/19 13:51 IMPRESSION: MILD CHRONIC CHANGES OF ATROPHY AND MICROVASCULAR ISCHEMIA. NO ACUTE PROCESS. EVIDENCE OF ACUTE STROKE: NO. Chest CT 09/29/19 16:01 IMPRESSION: Cardiomegaly with pulmonary vascular congestion and minimal ground- glass infiltrates likely representing mild interstitial edema. No other s ignificant finding. Abdomen/Pelvis CT 09/29/19 16:04 IMPRESSION: Ascites. Cholelithiasis. Diverticulosis coli. Hip X-Ray 10/05/19 00:00 IMPRESSION: Advanced osteoarthritis. KUB X-Ray 10/06/19 00:00 IMPRESSION: Limited exam secondary to body habitus. Gaseous distended structure stomach. Chest X-Ray 10/06/19 14:36 IMPRESSION: Stable enlarged cardiac silhouette and central vascular congestion. No definitive superimposed airspace disease. 10/10/19 05:17 10/10/19 05:17 MCV 88 fl (80-97) 10/10/19 05:17 MCH 28.8 pg (27.0-33.4) 10/10/19 05:17 MCHC 32.6 g/dL (32.0-36.0) 10/10/19 05:17 RDW 17.2 % (11.5-14.0) H 10/10/19 05:17 Seg Neutrophils % 78.4 % (42-78) H 10/10/19 05:17 VBG pH 7.30 (7.30-7.42) 09/29/19 13:40 VBG pCO2 51.5 mmHg (35-63) 09/29/19 13:40 VBG HCO3 24.7 mmol/L (20-32) 09/29/19 13:40 VBG Base Excess -2.4 mmol/L 09/29/19 13:40 Chloride 107 mmol/L (98-107) 10/10/19 05:17 Carbon Dioxide 30 mmol/L (22-30) 10/10/19 05:17 Anion Gap 7 (5-19) 10/10/19 05:17 Est GFR ( Amer) > 60 (>60) 10/10/19 05:17 Est GFR (Non-Af Amer) Cancelled 10/09/19 05:54 Glucose 124 mg/dL (75-110) H 10/10/19 05:17 Lactic Acid 1.3 mmol/L (0.7-2.1) 09/29/19 13:40 Calcium 8.8 mg/dL (8.4-10.2) 10/10/19 05:17 Phosphorus 3.8 mg/dL (2.5-4.5) 09/30/19 05:37 Magnesium 2.0 mg/dL (1.6-2.3) 10/08/19 08:32 Total Bilirubin 1.3 mg/dL (0.2-1.3) 09/30/19 05:37 AST 40 U/L (14-36) H 09/30/19 05:37 Alkaline Phosphatase 77 U/L (38-126) 09/30/19 05:37 Ammonia < 8.7 umol/L (9-33) L 09/29/19 15:04 Total Protein 6.4 g/dL (6.3-8.2) 09/30/19 05:37 Albumin 3.3 g/dL (3.5-5.0) L 09/30/19 05:37 TSH 1.18 uIU/mL (0.47-4.68) 10/02/19 06:36 Urine Color RED 10/09/19 05:55 Urine Appearance TURBID 10/09/19 05:55 Urine pH 5.0 (5.0-9.0) 10/09/19 05:55 Ur Specific [place] 1.028 10/09/19 05:55 Urine Protein NEGATIVE mg/dL (NEGATIVE) 10/09/19 05:55 Urine Glucose (UA) NEGATIVE mg/dL (NEGATIVE) 10/09/19 05:55 Urine Ketones 20 mg/dL (NEGATIVE) H 10/09/19 05:55 Urine Blood MODERATE (NEGATIVE) H 10/09/19 05:55 Urine Nitrite POSITIVE (NEGATIVE) H 09/29/19 16:15 Ur Leukocyte Esterase LARGE (NEGATIVE) H 09/29/19 16:15 Urine WBC (Auto) 87 /HPF 09/29/19 16:15 Urine RBC (Auto) >182 /HPF 10/09/19 05:55 09/29/19 09/29/19 10/08/19 13:40 13:40 08:32 Creatine Kinase 52 Troponin I 0.019 < 0.012 Current Medication List Generic Name Dose Route Start Last Admin Trade Name Freq PRN Reason Stop Dose Admin Acetaminophen 325 mg 09/29/19 16:48 10/07/19 12:33 Tylenol 325 Mg Tablet PO 10/29/19 16:47 325 mg Q4HP PRN Administration FEVER >101 Acetaminophen 975 mg 10/02/19 14:06 Tylenol 650 Mg Supp NV 11/01/19 14:05 Q4HP PRN FOR PAIN Al Hydrox/Mg Hydrox/Simethicone 15 ml 09/29/19 16:48 Maalox Plus Susp 30 Udcup PO 10/29/19 16:47 Q6HP PRN HEARTBURN Albuterol/Ipratropium 3 ml 09/29/19 16:48 10/06/19 17:50 Duoneb 3 Ml Ampul NEB 10/29/19 16:47 3 ml RTQ6HP PRN Administration SHORTNESS OF BREATH Artificial Tears 1 drop 09/30/19 08:41 Refresh Plus 0.5% Oph Soln 0.4 Ml Droperette OU 10/30/19 08:40 QIDP PRN DRY EYE(S) Aspirin 81 mg 09/30/19 10:00 10/10/19 10:26 Ecotrin 81 Mg Ec Tablet PO 10/30/19 09:59 81 mg DAILY LATOSHA Administration Bisacodyl 5 mg 10/07/19 14:34 10/10/19 03:51 Dulcolax 5 Mg Tablet PO 11/06/19 14:33 5 mg DAILYP PRN Administration UNRESOLVED CONSTIPATION Bisacodyl 10 mg 10/07/19 14:34 Dulcolax 10 Mg Supp.Rect NV 11/06/19 14:33 DAILYP PRN UNRESOLVED CONSTIPATION Buspirone HCl 5 mg 10/03/19 10:00 10/10/19 17:59 Buspar 10 Mg Tablet PO 11/02/19 09:59 5 mg BID LATOSHA Administration Clonidine HCl 1 each 10/02/19 15:00 10/09/19 11:01 Catapres-Tts 1 (0.1 Mg/24 Hr) Transderm Patch TD 11/01/19 14:59 1 each Mo@10 LATOSHA Administration Cyanocobalamin 1,000 mcg 09/30/19 10:00 10/11/19 11:06 Vitamin B-12 1000 Mcg Tablet PO 10/30/19 09:59 Not Given DAILY LATOSHA Dabigatran 150 mg 09/30/19 10:00 10/10/19 13:04 Pradaxa 150 Mg Capsule PO 10/30/19 09:59 Not Given Q12 LATOSHA Dextrose 12.5 gm 09/30/19 08:43 Dextrose Inj 50% Syringe (25 Gm/50 Ml) IV 10/30/19 08:42 PRN PRN FOR BG 50-69 IN ALERT PATIENT Protocol Dextrose 25 gm 09/30/19 08:43 Dextrose Inj 50% Syringe (25 Gm/50 Ml) IV 10/30/19 08:42 PRN PRN PER PROTOCOL Protocol Divalproex Sodium 250 mg 10/10/19 14:00 10/11/19 07:07 Depakote Sprinkle 125 Mg Capsule PO 11/09/19 13:59 250 mg Q8 LATOSHA Administration Docusate Sodium 100 mg 09/30/19 10:00 10/10/19 10:46 Colace 100 Mg Capsule PO 10/30/19 09:59 100 mg DAILY LATOSHA Administration Ergocalciferol 50,000 unit 10/01/19 10:00 10/08/19 09:27 Drisdol 50,000 Unit (1.25mg) Capsule PO 10/31/19 09:59 50,000 unit CLARK@1000 LATOSHA Administration Famotidine 20 mg 09/29/19 22:00 10/10/19 23:07 Pepcid 20 Mg Tablet PO 10/29/19 21:59 20 mg Q12 LATOSHA Administration Fluticasone/Vilanterol 1 inh 10/09/19 10:00 10/11/19 11:06 Breo 100-25 Mcg Ellipta 14 Dose/Dpi IH 11/08/19 09:59 Not Given DAILY LATOSHA Furosemide 40 mg 10/10/19 18:00 10/11/19 10:23 Lasix Inj/Pf 40 Mg/4 Ml Sdv IV 11/09/19 17:59 40 mg BID LATOSHA Administration Glucagon 1 mg 09/30/19 08:43 Glucagen Inj 1 Mg Vial IM 10/30/19 08:42 PRN PRN Evaluate for BG < 70 Protocol Glucose 15 gm 09/30/19 08:43 Glutose 40% Gel 15 Gm Tube PO 10/30/19 08:42 PRN PRN FOR BG 50-69 IN ALERT PATIENT Protocol Glucose 30 gm 09/30/19 08:43 Glutose 40% Gel 15 Gm Tube PO 10/30/19 08:42 PRN PRN FOR BG < 50 IN ALERT PATIENT Protocol Haloperidol Lactate 2 mg 10/02/19 13:56 10/08/19 01:49 Haldol 5 Mg/Ml Inj 1 Ml Vial IM 11/01/19 13:55 2 mg Q6HP PRN Administration RESTLESSNESS/AGITATION Ceftriaxone Sodium/Dextrose 2 gm in 50 mls @ 100 mls/hr 10/09/19 10:00 10/11/19 10:23 Rocephin Rtu 2 Gm/D5w 50 Ml Premix Bag IV 10/16/19 09:59 4,000 mg/hr DAILY LATOSHA 100 mls/hr Administration Insulin Human Lispro 0 - 12 unit 09/30/19 11:00 10/11/19 11:11 Humalog Insulin 100 Unit/1 Ml 3 Ml Vial SUBCUT 10/30/19 10:59 Not Given ACHS LATOSHA Protocol Latanoprost 1 drop 09/30/19 22:00 10/10/19 23:25 Xalatan 0.005% Oph Soln 2.5 Ml OU 10/30/19 21:59 1 drop QHS LATOSHA Administration Levothyroxine Sodium 0.05 mg 10/01/19 06:00 10/11/19 07:08 Synthroid 0.05 Mg Tablet PO 10/31/19 05:59 0.05 mg Q6AM LATOSHA Administration Magnesium Hydroxide 30 ml 09/29/19 16:48 10/10/19 03:51 Milk Of Magnesia 30 Ml Udcup PO 10/29/19 16:47 30 ml HSP PRN Administration FOR CONSTIPATION Melatonin 6 mg 10/01/19 22:00 10/10/19 23:06 Melatonin 3 Mg Tablet PO 10/31/19 21:59 6 mg QHS LATOSHA Administration Metoprolol Tartrate 25 mg 09/30/19 22:00 10/10/19 23:07 Lopressor 25 Mg Tablet PO 10/30/19 21:59 25 mg Q12 LATOSHA Administration Ondansetron HCl 4 mg 09/29/19 16:48 10/06/19 22:53 Zofran Inj/Pf 4 Mg/2 Ml Sdv IV 10/29/19 16:47 4 mg Q4HP PRN Administration FOR NAUSEA/VOMITING Pantoprazole Sodium 40 mg 10/01/19 08:00 10/11/19 11:[address] Tablet PO 10/31/19 07:59 Not Given QAM LATOSHA Risperidone 0.5 mg 10/11/19 08:00 10/11/19 11:05 Risperdal 1 Mg Tablet PO 11/10/19 07:59 Not Given QAM LATOSHA Sacubitril/Valsartan 1 tab 10/10/19 18:00 10/10/19 17:59 Entresto 24 Mg/26 Mg Tablet PO 11/09/19 17:59 1 tab BID LATOSHA Administration Sertraline HCl 50 mg 10/03/19 10:00 10/10/19 10:25 Zoloft 50 Mg Tablet PO 11/02/19 09:59 50 mg DAILY LATOSHA Administration Sodium Chloride 2.5 ml 10/09/19 14:00 10/11/19 07:08 Saline Flush 2.5 Ml Monoject Prefil Syrin IV 11/08/19 13:59 2.5 ml Q8 LATOSHA Administration Discontinued Medications Generic Name Dose Route Start Last Admin Trade Name Freq PRN Reason Stop Dose Admin Bisacodyl 5 mg 10/06/19 15:30 10/06/19 16:34 Dulcolax 5 Mg Tablet PO 10/06/19 15:31 5 mg NOW ONE Administration Buspirone HCl 5 mg 09/30/19 10:00 10/01/19 11:16 Buspar 10 Mg Tablet PO 10/30/19 09:59 5 mg BID LATOSHA Administration Buspirone HCl 10 mg 10/01/19 18:00 10/02/19 17:12 Buspar 10 Mg Tablet PO 10/31/19 17:59 Not Given BID LATOSHA Calcium Gluconate 1,000 mg 09/29/19 16:51 09/29/19 18:00 Calcium Gluconate Inj 1000 Mg/10 Ml IV 09/29/19 16:52 1,000 mg NOW ONE Administration Cephalexin HCl 500 mg 10/09/19 09:30 10/09/19 11:17 Keflex 500 Mg Capsule PO 10/16/19 09:29 Not Given Q6 LATOSHA Divalproex Sodium 250 mg 10/02/19 22:00 10/05/19 21:15 Depakote Sprinkle 125 Mg Capsule PO 11/01/19 21:59 250 mg Q12 LATOSHA Administration Divalproex Sodium 250 mg 10/06/19 14:00 10/08/19 06:28 Depakote Sprinkle 125 Mg Capsule PO 11/05/19 13:59 250 mg Q8 LATOSHA Administration Divalproex Sodium 375 mg 10/08/19 14:00 10/10/19 06:41 Depakote Sprinkle 125 Mg Capsule PO 11/07/19 13:59 375 mg Q8 LATOSHA Administration Furosemide 40 mg 10/09/19 10:00 10/10/19 10:28 Lasix Inj/Pf 40 Mg/4 Ml Sdv IV 11/08/19 09:59 40 mg DAILY LATOSHA Administration Haloperidol 2.5 mg 10/02/19 22:00 Haldol 2 Mg Tablet PO 11/01/19 21:59 Q12 LATOSHA Haloperidol Lactate Confirm 09/29/19 18:51 09/29/19 18:57 Haldol 5 Mg/Ml Inj 1 Ml Vial Administered 09/29/19 18:52 2 mg Dose Administration 5 mg .ROUTE .STK-MED ONE Haloperidol Lactate 2 mg 09/29/19 19:15 09/29/19 20:56 Haldol 5 Mg/Ml Inj 1 Ml Vial IV 09/29/19 19:16 Not Given NOW ONE Heparin Sodium (Porcine) 5,000 unit 09/29/19 22:00 09/30/19 06:16 Heparin Inj 5,000 Units/Ml 1 Ml Vial SUBCUT 10/29/19 21:59 5,000 unit Q8 LATOSHA Administration Sodium Chloride 1,000 mls @ 0 mls/hr 09/29/19 14:26 09/29/19 16:04 Nacl 0.9% 1000 Ml Iv Soln IV 09/29/19 14:27 Infused BOLUS ONE Infusion Wide Open Lactated Ringer's 1,000 mls @ 120 mls/hr 09/29/19 16:48 09/30/19 10:55 Lactated Ringers 1000 Ml Iv Soln IV 10/29/19 16:47 Infused CONTINUOUS PRN Infusion THIS MED IS NOT "PRN" Lactated Ringer's 1,000 mls @ 100 mls/hr 09/30/19 08:41 10/01/19 07:59 Lactated Ringers 1000 Ml Iv Soln IV 10/29/19 16:47 Infused CONTINUOUS PRN Infusion THIS MED IS NOT "PRN" Cefazolin Sodium/Dextrose 1 gm in 50 mls @ 100 mls/hr 09/30/19 12:00 10/04/19 12:30 Ancef Rtu 1 Gm/D5w 50 Ml Premix Bag IV 10/05/19 11:59 Infused Q6 LATOSHA Infusion Dextrose/Sodium Chloride 1,000 mls @ 60 mls/hr 10/02/19 18:13 10/09/19 11:46 D5ns 1000 Ml Iv Soln IV 11/01/19 18:12 Infused CONTINUOUS PRN Infusion THIS MED IS NOT "PRN" Insulin Glargine 20 unit 10/01/19 10:00 10/06/19 12:16 Lantus Insulin 100 Unit/1 Ml 10 Ml SUBCUT 10/31/19 09:59 Not Given DAILY LATOSHA Insulin Glargine 20 unit 09/30/19 10:00 09/30/19 10:36 Lantus (Pyxis) Insulin 100 Unit/1 Ml 10 Ml SUBCUT 09/30/19 10:01 Not Given NOW ONE Latanoprost 1 drop 09/30/19 22:00 10/09/19 23:54 Xalatan 0.005% Oph Soln 2.5 Ml OP 10/30/19 21:59 1 drop QHS LATOSHA Administration Lorazepam Confirm 10/01/19 01:12 10/01/19 01:16 Ativan Inj 2 Mg/1 Ml Vial Administered 10/01/19 01:13 2 mg Dose Administration 2 mg .ROUTE .STK-MED ONE Lorazepam 1 mg 10/01/19 01:30 10/01/19 01:24 Ativan Inj 2 Mg/1 Ml Vial IV 10/01/19 01:31 Not Given NOW ONE Metoprolol Tartrate 12.5 mg 09/30/19 10:00 09/30/19 10:36 Lopressor 25 Mg Tablet PO 10/30/19 09:59 Not Given Q12 LATOSHA Morphine Sulfate 2 mg 10/02/19 10:00 10/02/19 09:46 Morphine 10 Mg/Ml Inj IV 10/02/19 10:01 2 mg NOW ONE Administration Oxycodone HCl 5 mg 09/30/19 08:41 10/06/19 22:53 Oxy-Ir 5 Mg Tablet PO 10/07/19 08:40 5 mg Q8HP PRN Administration FOR BREAKTHROUGH PAIN Risperidone 1 mg 09/30/19 22:00 10/01/19 21:50 Risperdal 1 Mg Tablet PO 10/30/19 21:59 1 mg QHS LATOSHA Administration Risperidone 0.5 mg 10/01/19 15:00 10/02/19 11:29 Risperdal 1 Mg Tablet PO 10/31/19 14:59 Not Given DAILY LATOSHA Risperidone 0.25 mg 10/01/19 14:55 Risperdal 0.25 Mg Tablet PO 10/31/19 14:54 BIDP PRN RESTLESSNESS/AGITATION Sertraline HCl 100 mg 09/30/19 10:00 10/02/19 11:29 Zoloft 50 Mg Tablet PO 10/30/19 09:59 Not Given DAILY LATOSHA Sodium Polystyrene Sulfonate 30 gm 09/29/19 16:51 09/29/19 18:02 Kayexalate 15 Gm/60 Ml Susp 60 Ml PO 09/29/19 16:52 30 gm NOW ONE Administration Tramadol HCl 50 mg 09/30/19 08:41 10/07/19 05:06 Ultram 50 Mg Tablet PO 10/07/19 08:40 50 mg Q8HP PRN Administration FOR PAIN SCALE 3-5 Assessment & Plan - Diagnosis (1) Heart failure, ACC/AHA stage C with decreased ejection fraction Is this a current diagnosis for this admission?: Yes Plan: It is unclear how long the patient had been in HF or its etiology. Given her age and atrial dysrhythmia it is likely to be multifactorial given her increased risk for CAD as well as the possibility of uncontrolled atrial fibrillation in the past. She clearly has severe dementia which makes her ineligible for invasive work up treatments as well as advanced therapies such as ICD and others. She has responded well to diuresis after adding Entresto with a fluid balance of only +554 ml. Her BP has been increasing though. Recommendations: -Continue with current lasix dose. -Increase Entresto to 49/51 mg BID for both HF and better BP control. -Low sodium diet. -Restrict fluids to 1500 cc daily. -Avoid unnecessary IV fluids. -Strict intake and output. -Daily BMP and Mg and replace electrolytes as necessary. -BNP. -Repeat chest x-ray. -Continue with cardiac telemetry. (2) Cardiomyopathy Qualifiers: Cardiomyopathy type: unspecified Qualified Code(s): I42.9 - Cardiomyopathy, unspecified Is this a current diagnosis for this admission?: Yes Plan: Unclear etiology but appears to be multifactorial. Please see #1 above for recommendations. (3) Paroxysmal atrial fibrillation Is this a current diagnosis for this admission?: Yes Plan: Rate-controlled and anticoagulated with pradaxa which has been temporarily held due to traumatic hematuria as the patient had been pulling on her Delcid catheter. Recomendations: -Continue with current management. -Restart Pradaxa once hematuria resolves.
[2019-10-11] MEDS: FAMOTIDINE 20 MG TABLET PO SCH ×2 (12:33→22:05)
[2019-10-11] MEDS: BUSPIRONE HCL 10 MG TABLET PO SCH ×3 (12:33→17:41)
[2019-10-11] MEDS: SACUBITRIL/VALSARTAN 24 MG/26 MG TABLET PO SCH ×3 (12:33→17:41)
[2019-10-11] MEDS: ACETAMINOPHEN 325 MG TABLET PO PRN ×2 (13:21→17:41)
[2019-10-11] MEDS: DOCUSATE SODIUM 100 MG CAPSULE PO SCH (13:21)
[2019-10-11] MEDS: METOPROLOL TARTRATE 25 MG TABLET PO SCH ×2 (13:22→22:03)
[2019-10-11] MEDS: SERTRALINE HCL 50 MG TABLET PO SCH (13:22)
[2019-10-11] MEDS: ASPIRIN 81 MG TABLET, ENT COATED PO SCH (13:22)
[2019-10-11] MEDS: MELATONIN 3 MG TABLET PO SCH (22:04)
[2019-10-11] MEDS: LATANOPROST 0.005% OPH SOLN 2.5 ML OU SCH (22:12)
[2019-10-11] MEDS: HALOPERIDOL LACTATE INJ 5 MG/1 ML VIAL IM PRN (22:59)
[2019-10-11] MEDS ORDERED: HALOPERIDOL LACTATE INJ 5 MG/1 ML VIAL IV ONE (23:15)
[2019-10-12] MEDS: HALOPERIDOL LACTATE INJ 5 MG/1 ML VIAL IM PRN (05:03)
[2019-10-12] MEDS: LEVOTHYROXINE SODIUM 0.05 MG TABLET PO SCH (05:03)
[2019-10-12] MEDS: DIVALPROEX SODIUM 125 MG CAP.SPRINK PO SCH ×3 (05:04→22:40)
[2019-10-12] MEDS: INSULIN LISPRO 100 UNIT/ML 3 ML VIAL SUBCUT SCH ×4 (09:32→22:40)
[2019-10-12] MEDS: CYANOCOBALAMIN (VITAMIN B-12) 1,000 MCG TABLET PO SCH (09:39)
[2019-10-12] MEDS: DOCUSATE SODIUM 100 MG CAPSULE PO SCH (09:39)
[2019-10-12] MEDS: FAMOTIDINE 20 MG TABLET PO SCH ×2 (09:39→22:28)
[2019-10-12] MEDS: FUROSEMIDE INJ/PF 40 MG/4 ML SDV IV SCH ×2 (09:39→17:29)
[2019-10-12] MEDS: PANTOPRAZOLE SODIUM 40 MG TABLET.DR PO SCH (09:39)
[2019-10-12] MEDS: METOPROLOL TARTRATE 25 MG TABLET PO SCH ×2 (09:39→22:28)
[2019-10-12] MEDS: SERTRALINE HCL 50 MG TABLET PO SCH (09:40)
[2019-10-12] MEDS: SACUBITRIL/VALSARTAN 24 MG/26 MG TABLET PO SCH ×2 (09:40→17:29)
[2019-10-12] MEDS: BUSPIRONE HCL 10 MG TABLET PO SCH ×2 (09:40→17:29)
[2019-10-12] MEDS: ASPIRIN 81 MG TABLET, ENT COATED PO SCH (09:40)
[2019-10-12] MEDS: CEFTRIAXONE 2 GM/D5W RTU 2 GM/50 ML RTUPB IV SCH (09:44)
[2019-10-12] MEDS: FLUTICASONE/VILANTEROL 100-25 MCG/DOSE IH SCH (09:56)
[2019-10-12] MEDS: RISPERIDONE 1 MG TABLET PO SCH (09:58)
--- NOTE | 2019-10-12 10:06 | PDOC PROGRESS REPORT ---
Subjective Progress Note for:: 10/12/19 Subjective:: MOON RIDER is a 83 year old female past medical history of COPD, CAD, A. fib, diabetes, hypothyroidism, arthritis, depression, dementia, status post right knee arthroplasty 4 days prior to admission who was admitted on 09/29/19 for evaluation of mental status changes and who is consulted to our service for evaluation of HF. The patient had experienced worsening episodes of delirium and was recently diagnosed with severe dementia. She was also discovered to have a UTI for which she is treated with IV Rocephin. A chest CT scan on admission demonstrated pulmonary vascular congestion among other findings and an abdominopelvic CT demonstrated ascites. Her echocardiogram yesterday demonstrated moderate to severe LV systolic dysfunction with an EF between 30 and 35% with a CXR on 10/06/19 still demonstrating vascular congestion. Her fluid balance since 09/30/19 is +3.4 L. Her telemetry demonstrates slow atrial fibrillation. 10/12/19: The patient had an uneventful night from the CV standpoint and was less agitated. She is found resting comfortably in bed with her eyes closed but answering questions appropriately. She has responded very well to diuresis after addition on Entresto and her fluid balance is now -1.754 L with almost total resolution of her lower extremity edema. Her Pradaxa has been held due to hematuria secondary to trauma in her Delcid as the patient was pulling on the catheter. This morning the Delcid catheter demonstrates less blood than yesterday. Her telemetry shows slow atrial fibrillation. Physical exam on 10/12/19: GENERAL: Eyes closed but able to answer questions. She is actually asking for her medications. HEENT: Normocephalic, atraumatic. Pupils equal. Sclerae anicteric. Oropharynx moist. NECK: No JVD. No carotid bruits. LUNGS: Clear to auscultation bilaterally. Normal respiratory effort without t he use of accessory muscles or intercostal retractions. CARDIOVASCULAR: Irregularly irregular rate and rhythm, normal S1 and S2 without murmurs, rubs, or gallops. PMI not displaced. ABDOMEN: No masses or tenderness to palpation. No bruit. No splenomegaly or hepatomegaly. No abdominal aorta bruit noted. EXTREMITIES: Trace pitting edema bilaterally, no cyanosis, no clubbing. Surgical wound noted of the right knee. SKIN: No lesions or rashes. MUSCULOSKELETAL: No chest tenderness to palpation. Reason For Visit: AMS,ELGIN Physical Exam Vital Signs: Temp Pulse Resp BP Pulse Ox 97.9 F 70 17 134/58 H 91 L 10/12/19 00:05 10/12/19 02:00 10/12/19 00:05 10/12/19 00:05 10/12/19 00:05 Intake & Output 10/11/19 10/12/19 10/13/19 06:59 06:59 06:59 Intake Total 810 190 Output Total 5500 2500 Balance -4690 -2310 Weight 84 kg 82.6 kg Results Laboratory Results: 10/10/19 05:17 10/10/19 05:17 09/29/19 09/29/19 10/08/19 13:40 13:40 08:32 Creatine Kinase 52 Troponin I 0.019 < 0.012 Impressions: Head CT 09/29/19 13:51 IMPRESSION: MILD CHRONIC CHANGES OF ATROPHY AND MICROVASCULAR ISCHEMIA. NO ACUTE PROCESS. EVIDENCE OF ACUTE STROKE: NO. Chest CT 09/29/19 16:01 IMPRESSION: Cardiomegaly with pulmonary vascular congestion and minimal ground-glass infiltrates likely representing mild interstitial edema. No other significant finding. Abdomen/Pelvis CT 09/29/19 16:04 IMPRESSION: Ascites. Cholelithiasis. Diverticulosis coli. Hip X-Ray 10/05/19 00:00 IMPRESSION: Advanced osteoarthritis. KUB X-Ray 10/06/19 00:00 IMPRESSION: Limited exam secondary to body habitus. Gaseous distended structure stomach. Chest X-Ray 10/06/19 14:36 IMPRESSION: Stable enlarged cardiac silhouette and central vascular congestion. No definitive superimposed airspace disease. 10/10/19 05:17 10/10/19 05:17 MCV 88 fl (80-97) 10/10/19 05:17 MCH 28.8 pg (27.0-33.4) 10/10/19 05:17 MCHC 32.6 g/dL (32.0-36.0) 10/10/19 05:17 RDW 17.2 % (11.5-14.0) H 10/10/19 05:17 Seg Neutrophils % 78.4 % (42-78) H 10/10/19 05:17 VBG pH 7.30 (7.30-7.42) 09/29/19 13:40 VBG pCO2 51.5 mmHg (35-63) 09/29/19 13:40 VBG HCO3 24.7 mmol/L (20-32) 09/29/19 13:40 VBG Base Excess -2.4 mmol/L 09/29/19 13:40 Chloride 107 mmol/L (98-107) 10/10/19 05:17 Carbon Dioxide 30 mmol/L (22-30) 10/10/19 05:17 Anion Gap 7 (5-19) 10/10/19 05:17 Est GFR ( Amer) > 60 (>60) 10/10/19 05:17 Est GFR (Non-Af Amer) Cancelled 10/09/19 05:54 Glucose 124 mg/dL (75-110) H 10/10/19 05:17 Lactic Acid 1.3 mmol/L (0.7-2.1) 09/29/19 13:40 Calcium 8.8 mg/dL (8.4-10.2) 10/10/19 05:17 Phosphorus 3.8 mg/dL (2.5-4.5) 09/30/19 05:37 Magnesium 2.0 mg/dL (1.6-2.3) 10/08/19 08:32 Total Bilirubin 1.3 mg/dL (0.2-1.3) 09/30/19 05:37 AST 40 U/L (14-36) H 09/30/19 05:37 Alkaline Phosphatase 77 U/L (38-126) 09/30/19 05:37 Ammonia < 8.7 umol/L (9-33) L 09/29/19 15:04 Total Protein 6.4 g/dL (6.3-8.2) 09/30/19 05:37 Albumin 3.3 g/dL (3.5-5.0) L 09/30/19 05:37 TSH 1.18 uIU/mL (0.47-4.68) 10/02/19 06:36 Urine Color RED 10/09/19 05:55 Urine Appearance TURBID 10/09/19 05:55 Urine pH 5.0 (5.0-9.0) 10/09/19 05:55 Ur Specific [place] 1.028 10/09/19 05:55 Urine Protein NEGATIVE mg/dL (NEGATIVE) 10/09/19 05:55 Urine Glucose (UA) NEGATIVE mg/dL (NEGATIVE) 10/09/19 05:55 Urine Ketones 20 mg/dL (NEGATIVE) H 10/09/19 05:55 Urine Blood MODERATE (NEGATIVE) H 10/09/19 05:55 Urine Nitrite POSITIVE (NEGATIVE) H 09/29/19 16:15 Ur Leukocyte Esterase LARGE (NEGATIVE) H 09/29/19 16:15 Urine WBC (Auto) 87 /HPF 09/29/19 16:15 Urine RBC (Auto) >182 /HPF 10/09/19 05:55 09/29/19 09/29/19 10/08/19 13:40 13:40 08:32 Creatine Kinase 52 Troponin I 0.019 < 0.012 Current Medication List Generic Name Dose Route Start Last Admin Trade Name Freq PRN Reason Stop Dose Admin Acetaminophen 325 mg 09/29/19 16:48 10/11/19 17:41 Tylenol 325 Mg Tablet PO 10/29/19 16:47 325 mg Q4HP PRN Administration FEVER >101 Acetaminophen 975 mg 10/02/19 14:06 Tylenol 650 Mg Supp IA 11/01/19 14:05 Q4HP PRN FOR PAIN Al Hydrox/Mg Hydrox/Simethicone 15 ml 09/29/19 16:48 Maalox Plus Susp 30 Udcup PO 10/29/19 16:47 Q6HP PRN HEARTBURN Albuterol/Ipratropium 3 ml 09/29/19 16:48 10/06/19 17:50 Duoneb 3 Ml Ampul NEB 10/29/19 16:47 3 ml RTQ6HP PRN Administration SHORTNESS OF BREATH Artificial Tears 1 drop 09/30/19 08:41 Refresh Plus 0.5% Oph Soln 0.4 Ml Droperette OU 10/30/19 08:40 QIDP PRN DRY EYE(S) Aspirin 81 mg 09/30/19 10:00 10/11/19 13:22 Ecotrin 81 Mg Ec Tablet PO 10/30/19 09:59 81 mg DAILY LATOSHA Administration Bisacodyl 5 mg 10/07/19 14:34 10/10/19 03:51 Dulcolax 5 Mg Tablet PO 11/06/19 14:33 5 mg DAILYP PRN Administration UNRESOLVED CONSTIPATION Bisacodyl 10 mg 10/07/19 14:34 Dulcolax 10 Mg Supp.Rect IA 11/06/19 14:33 DAILYP PRN UNRESOLVED CONSTIPATION Buspirone HCl 5 mg 10/03/19 10:00 10/11/19 17:41 Buspar 10 Mg Tablet PO 11/02/19 09:59 5 mg BID LATOSHA Administration Clonidine HCl 1 each 10/02/19 15:00 10/09/19 11:01 Catapres-Tts 1 (0.1 Mg/24 Hr) Transderm Patch TD 11/01/19 14:59 1 each Mo@10 LATOSHA Administration Cyanocobalamin 1,000 mcg 09/30/19 10:00 10/11/19 11:06 Vitamin B-12 1000 Mcg Tablet PO 10/30/19 09:59 Not Given DAILY LATOSHA Dabigatran 150 mg 09/30/19 10:00 10/10/19 13:04 Pradaxa 150 Mg Capsule PO 10/30/19 09:59 Not Given Q12 LATOSHA Dextrose 12.5 gm 09/30/19 08:43 Dextrose Inj 50% Syringe (25 Gm/50 Ml) IV 10/30/19 08:42 PRN PRN FOR BG 50-69 IN ALERT PATIENT Protocol Dextrose 25 gm 09/30/19 08:43 Dextrose Inj 50% Syringe (25 Gm/50 Ml) IV 10/30/19 08:42 PRN PRN PER PROTOCOL Protocol Divalproex Sodium 250 mg 10/10/19 14:00 10/12/19 05:04 Depakote Sprinkle 125 Mg Capsule PO 11/09/19 13:59 250 mg Q8 LATOSHA Administration Docusate Sodium 100 mg 09/30/19 10:00 10/11/19 13:21 Colace 100 Mg Capsule PO 10/30/19 09:59 100 mg DAILY LATOSHA Administration Ergocalciferol 50,000 unit 10/01/19 10:00 10/08/19 09:27 Drisdol 50,000 Unit (1.25mg) Capsule PO 10/31/19 09:59 50,000 unit CLARK@1000 LATOSHA Administration Famotidine 20 mg 09/29/19 22:00 10/11/19 22:05 Pepcid 20 Mg Tablet PO 10/29/19 21:59 20 mg Q12 LAOTSHA Administration Fluticasone/Vilanterol 1 inh 08/24/20 10:00 10/11/19 11:06 Breo 100-25 Mcg Ellipta 14 Dose/Dpi IH 11/08/19 09:59 Not Given DAILY LATOSHA Furosemide 40 mg 10/10/19 18:00 10/11/19 17:41 Lasix Inj/Pf 40 Mg/4 Ml Sdv IV 11/09/19 17:59 40 mg BID LATOSHA Administration Glucagon 1 mg 09/30/19 08:43 Glucagen Inj 1 Mg Vial IM 10/30/19 08:42 PRN PRN Evaluate for BG < 70 Protocol Glucose 15 gm 09/30/19 08:43 Glutose 40% Gel 15 Gm Tube PO 10/30/19 08:42 PRN PRN FOR BG 50-69 IN ALERT PATIENT Protocol Glucose 30 gm 09/30/19 08:43 Glutose 40% Gel 15 Gm Tube PO 10/30/19 08:42 PRN PRN FOR BG < 50 IN ALERT PATIENT Protocol Haloperidol Lactate 2 mg 10/02/19 13:56 10/12/19 05:03 Haldol 5 Mg/Ml Inj 1 Ml Vial IM 11/01/19 13:55 2 mg Q6HP PRN Administration RESTLESSNESS/AGITATION Ceftriaxone Sodium/Dextrose 2 gm in 50 mls @ 100 mls/hr 10/09/19 10:00 10/11/19 11:26 Rocephin Rtu 2 Gm/D5w 50 Ml Premix Bag IV 10/16/19 09:59 Infused DAILY LATOSHA Infusion Insulin Human Lispro 0 - 12 unit 09/30/19 11:00 10/11/19 22:03 Humalog Insulin 100 Unit/1 Ml 3 Ml Vial SUBCUT 10/30/19 10:59 Not Given ACHS [facility] Protocol Latanoprost 1 drop 09/30/19 22:00 10/11/19 22:12 Xalatan 0.005% Oph Soln 2.5 Ml OU 10/30/19 21:59 1 drop QHS LATOSHA Administration Levothyroxine Sodium 0.05 mg 10/01/19 06:00 10/12/19 05:03 Synthroid 0.05 Mg Tablet PO 10/31/19 05:59 0.05 mg Q6AM LATOSHA Administration Magnesium Hydroxide 30 ml 09/29/19 16:48 10/10/19 03:51 Milk Of Magnesia 30 Ml Udcup PO 10/29/19 16:47 30 ml HSP PRN Administration FOR CONSTIPATION Melatonin 6 mg 10/01/19 22:00 10/11/19 22:04 Melatonin 3 Mg Tablet PO 10/31/19 21:59 6 mg QHS LATOSHA Administration Metoprolol Tartrate 25 mg 09/30/19 22:00 10/11/19 22:03 Lopressor 25 Mg Tablet PO 10/30/19 21:59 25 mg Q12 LATOSHA Administration Ondansetron HCl 4 mg 09/29/19 16:48 10/06/19 22:53 Zofran Inj/Pf 4 Mg/2 Ml Sdv IV 10/29/19 16:47 4 mg Q4HP PRN Administration FOR NAUSEA/VOMITING Pantoprazole Sodium 40 mg 10/01/19 08:00 10/11/19 11:[address] Tablet PO 10/31/19 07:59 Not Given QAM LATOSHA Risperidone 0.5 mg 10/11/19 08:00 10/11/19 11:05 Risperdal 1 Mg Tablet PO 11/10/19 07:59 Not Given QAM LATOSHA Sacubitril/Valsartan 1 tab 10/10/19 18:00 10/11/19 17:41 Entresto 24 Mg/26 Mg Tablet PO 11/09/19 17:59 1 tab BID LATOSHA Administration Sertraline HCl 50 mg 10/03/19 10:00 10/11/19 13:22 Zoloft 50 Mg Tablet PO 11/02/19 09:59 50 mg DAILY LATOSHA Administration Sodium Chloride 2.5 ml 10/09/19 14:00 10/12/19 05:04 Saline Flush 2.5 Ml Monoject Prefil Syrin IV 11/08/19 13:59 2.5 ml Q8 LATOSHA Administration Discontinued Medications Generic Name Dose Route Start Last Admin Trade Name Freq PRN Reason Stop Dose Admin Bisacodyl 5 mg 10/06/19 15:30 10/06/19 16:34 Dulcolax 5 Mg Tablet PO 10/06/19 15:31 5 mg NOW ONE Administration Buspirone HCl 5 mg 09/30/19 10:00 10/01/19 11:16 Buspar 10 Mg Tablet PO 10/30/19 09:59 5 mg BID LATOSHA Administration Buspirone HCl 10 mg 10/01/19 18:00 10/02/19 17:12 Buspar 10 Mg Tablet PO 10/31/19 17:59 Not Given BID LATOSHA Calcium Gluconate 1,000 mg 09/29/19 16:51 09/29/19 18:00 Calcium Gluconate Inj 1000 Mg/10 Ml IV 09/29/19 16:52 1,000 mg NOW ONE Administration Cephalexin HCl 500 mg 10/09/19 09:30 10/09/19 11:17 Keflex 500 Mg Capsule PO 10/16/19 09:29 Not Given Q6 LATOSHA Divalproex Sodium 250 mg 10/02/19 22:00 10/05/19 21:15 Depakote Sprinkle 125 Mg Capsule PO 11/01/19 21:59 250 mg Q12 LATOSHA Administration Divalproex Sodium 250 mg 10/06/19 14:00 10/08/19 06:28 Depakote Sprinkle 125 Mg Capsule PO 11/05/19 13:59 250 mg Q8 LATOSHA Administration Divalproex Sodium 375 mg 10/08/19 14:00 10/10/19 06:41 Depakote Sprinkle 125 Mg Capsule PO 11/07/19 13:59 375 mg Q8 LATOSHA Administration Furosemide 40 mg 10/09/19 10:00 10/10/19 10:28 Lasix Inj/Pf 40 Mg/4 Ml Sdv IV 11/08/19 09:59 40 mg DAILY LATOSHA Administration Haloperidol 2.5 mg 10/02/19 22:00 Haldol 2 Mg Tablet PO 11/01/19 21:59 Q12 LATOSHA Haloperidol Lactate Confirm 09/29/19 18:51 09/29/19 18:57 Haldol 5 Mg/Ml Inj 1 Ml Vial Administered 09/29/19 18:52 2 mg Dose Administration 5 mg .ROUTE .STK-MED ONE Haloperidol Lactate 2 mg 09/29/19 19:15 09/29/19 20:56 Haldol 5 Mg/Ml Inj 1 Ml Vial IV 09/29/19 19:16 Not Given NOW ONE Haloperidol Lactate 2 mg 10/11/19 23:15 10/12/19 00:26 Haldol 5 Mg/Ml Inj 1 Ml Vial IV 10/11/19 23:16 Not Given NOW ONE Heparin Sodium (Porcine) 5,000 unit 09/29/19 22:00 09/30/19 06:16 Heparin Inj 5,000 Units/Ml 1 Ml Vial SUBCUT 10/29/19 21:59 5,000 unit Q8 LATOSHA Administration Sodium Chloride 1,000 mls @ 0 mls/hr 09/29/19 14:26 09/29/19 16:04 Nacl 0.9% 1000 Ml Iv Soln IV 09/29/19 14:27 Infused BOLUS ONE Infusion Wide Open Lactated Ringer's 1,000 mls @ 120 mls/hr 09/29/19 16:48 09/30/19 10:55 Lactated Ringers 1000 Ml Iv Soln IV 10/29/19 16:47 Infused CONTINUOUS PRN Infusion THIS MED IS NOT "PRN" Lactated Ringer's 1,000 mls @ 100 mls/hr 09/30/19 08:41 10/01/19 07:59 Lactated Ringers 1000 Ml Iv Soln IV 10/29/19 16:47 Infused CONTINUOUS PRN Infusion THIS MED IS NOT "PRN" Cefazolin Sodium/Dextrose 1 gm in 50 mls @ 100 mls/hr 09/30/19 12:00 10/04/19 12:30 Ancef Rtu 1 Gm/D5w 50 Ml Premix Bag IV 10/05/19 11:59 Infused Q6 LATOSHA Infusion Dextrose/Sodium Chloride 1,000 mls @ 60 mls/hr 10/02/19 18:13 10/09/19 11:46 D5ns 1000 Ml Iv Soln IV 11/01/19 18:12 Infused CONTINUOUS PRN Infusion THIS MED IS NOT "PRN" Insulin Glargine 20 unit 10/01/19 10:00 10/06/19 12:16 Lantus Insulin 100 Unit/1 Ml 10 Ml SUBCUT 10/31/19 09:59 Not Given DAILY LATOSHA Insulin Glargine 20 unit 09/30/19 10:00 09/30/19 10:36 Lantus (Pyxis) Insulin 100 Unit/1 Ml 10 Ml SUBCUT 09/30/19 10:01 Not Given NOW ONE Latanoprost 1 drop 09/30/19 22:00 10/09/19 23:54 Xalatan 0.005% Oph Soln 2.5 Ml OP 10/30/19 21:59 1 drop QHS LATOSHA Administration Lorazepam Confirm 10/01/19 01:12 10/01/19 01:16 Ativan Inj 2 Mg/1 Ml Vial Administered 10/01/19 01:13 2 mg Dose Administration 2 mg .ROUTE .STK-MED ONE Lorazepam 1 mg 10/01/19 01:30 10/01/19 01:24 Ativan Inj 2 Mg/1 Ml Vial IV 10/01/19 01:31 Not Given NOW ONE Metoprolol Tartrate 12.5 mg 09/30/19 10:00 09/30/19 10:36 Lopressor 25 Mg Tablet PO 10/30/19 09:59 Not Given Q12 LATOSHA Morphine Sulfate 2 mg 10/02/19 10:00 10/02/19 09:46 Morphine 10 Mg/Ml Inj IV 10/02/19 10:01 2 mg NOW ONE Administration Oxycodone HCl 5 mg 09/30/19 08:41 10/06/19 22:53 Oxy-Ir 5 Mg Tablet PO 10/07/19 08:40 5 mg Q8HP PRN Administration FOR BREAKTHROUGH PAIN Risperidone 1 mg 09/30/19 22:00 10/01/19 21:50 Risperdal 1 Mg Tablet PO 10/30/19 21:59 1 mg QHS LATOSHA Administration Risperidone 0.5 mg 10/01/19 15:00 10/02/19 11:29 Risperdal 1 Mg Tablet PO 10/31/19 14:59 Not Given DAILY LATOSHA Risperidone 0.25 mg 10/01/19 14:55 Risperdal 0.25 Mg Tablet PO 10/31/19 14:54 BIDP PRN RESTLESSNESS/AGITATION Sertraline HCl 100 mg 09/30/19 10:00 10/02/19 11:29 Zoloft 50 Mg Tablet PO 10/30/19 09:59 Not Given DAILY [facility] Sodium Polystyrene Sulfonate 30 gm 09/29/19 16:51 09/29/19 18:02 Kayexalate 15 Gm/60 Ml Susp 60 Ml PO 09/29/19 16:52 30 gm NOW ONE Administration Tramadol HCl 50 mg 09/30/19 08:41 10/07/19 05:06 Ultram 50 Mg Tablet PO 10/07/19 08:40 50 mg Q8HP PRN Administration FOR PAIN SCALE 3-5 Assessment & Plan - Diagnosis (1) Heart failure, ACC/AHA stage C with decreased ejection fraction Is this a current diagnosis for this admission?: Yes Plan: She now appears to be euvolemic and is actually -1.754 L in her fluid balance with significantly improved lower extremity edema and lungs clear to auscultation. It is unclear how long the patient had been in HF or its etiology. Given her age and atrial dysrhythmia it is likely to be multifactorial given her increased risk for CAD as well as the possibility of uncontrolled atrial fibrillation in the past. She clearly has severe dementia which makes her ineligible for invasive work up treatments as well as advanced therapies such as ICD and others. Recommendations: -Transition IV Lasix to p.o. Lasix. -Increase Entresto to 49/51 mg BID as tolerated by her blood pressure. -Low sodium diet. -Restrict fluids to 1500 cc daily. -Avoid unnecessary IV fluids. -Strict intake and output. -Daily BMP and Mg and replace electrolytes as necessary. -BNP. -Repeat chest x-ray. -Cardiology does not have further recommendations therefore we will sign off the case, please reconsult if clinically indicated. -I will arrange for outpatient cardiology follow-up with Dr. Crawford. (2) Cardiomyopathy Qualifiers: Cardiomyopathy type: unspecified Qualified Code(s): I42.9 - Cardiomyopathy, unspecified Is this a current diagnosis for this admission?: Yes Plan: Unclear etiology but appears to be multifactorial. Please see #1 above for recommendations. (3) Paroxysmal atrial fibrillation Is this a current diagnosis for this admission?: Yes Plan: Rate-controlled and anticoagulated with pradaxa which has been temporarily held due to traumatic hematuria as the patient had been pulling on her Delcid catheter. Recomendations: -Continue with current management. -Restart Pradaxa once hematuria resolves.
--- NOTE | 2019-10-12 11:35 | PDOC PROGRESS REPORT ---
Subjective Progress Note for:: 10/12/19 Subjective:: Await return to half-way Reason For Visit: AMS,ELGIN Physical Exam Vital Signs: Temp Pulse Resp BP Pulse Ox 97.7 F 79 18 117/73 94 10/12/19 08:20 10/12/19 07:48 10/12/19 07:48 10/12/19 07:48 10/12/19 07:48 Intake & Output 10/11/19 10/12/19 10/13/19 06:59 06:59 06:59 Intake Total 810 190 50 Output Total 5500 2500 Balance -4690 -2310 50 Weight 84 kg 82.6 kg Results Laboratory Results: 10/10/19 05:17 10/10/19 05:17 10/09/19 05:55 Delcid Catheter Urine Culture - Final Klebsiella(Enterobac)Aerogenes 09/29/19 09/29/19 10/08/19 13:40 13:40 08:32 Creatine Kinase 52 Troponin I 0.019 < 0.012 Impressions: Head CT 09/29/19 13:51 IMPRESSION: MILD CHRONIC CHANGES OF ATROPHY AND MICROVASCULAR ISCHEMIA. NO AC KELLIE PROCESS. EVIDENCE OF ACUTE STROKE: NO. Chest CT 09/29/19 16:01 IMPRESSION: Cardiomegaly with pulmonary vascular congestion and minimal ground- glass infiltrates likely representing mild interstitial edema. No other significant finding. Abdomen/Pelvis CT 09/29/19 16:04 IMPRESSION: Ascites. Cholelithiasis. Diverticulosis coli. Hip X-Ray 10/05/19 00:00 IMPRESSION: Advanced osteoarthritis. KUB X-Ray 10/06/19 00:00 IMPRESSION: Limited exam secondary to body habitus. Gaseous distended structure stomach. Chest X-Ray 10/06/19 14:36 IMPRESSION: Stable enlarged cardiac silhouette and central vascular congestion. No definitive superimposed airspace disease.
[2019-10-12] MEDS: CEFEPIME 1 GM/D5W RTU 1 GM/50 ML RTUPB IV SCH ×2 (12:50→22:27)
[2019-10-12] MEDS ORDERED: ONDANSETRON HCL INJ/PF 4 MG/2 ML SDV IV PRN (14:00)
--- NOTE | 2019-10-12 21:40 | PDOC PROGRESS REPORT ---
Subjective Progress Note for:: 10/12/19 Subjective:: Patient resting comfortably in bed. No complaints reported by nursing. Still awaiting placement. Reason For Visit: AMS,ELGIN Physical Exam Vital Signs: Temp Pulse Resp BP Pulse Ox 97.7 F 80 16 132/68 H 94 10/12/19 19:33 10/12/19 19:33 10/12/19 19:33 10/12/19 19:33 10/12/19 19:33 Intake & Output 10/11/19 10/12/19 10/13/19 06:59 06:59 06:59 Intake Total 810 190 100 Output Total 5500 2500 Balance -4690 -2310 100 Weight 84 kg 82.6 kg General appearance: PRESENT: no acute distress Head exam: PRESENT: atraumatic, normocephalic Ear exam: PRESENT: normal external ear exam. ABSENT: bleeding, drainage Respiratory exam: PRESENT: clear to auscultation molly, symmetrical, unlabored. ABSENT: rales, rhonchi, tachypnea, wheezes Cardiovascular exam: PRESENT: irregular rhythm. ABSENT: bradycardia, diastolic murmur, systolic murmur, tachycardia GI/Abdominal exam: PRESENT: normal bowel sounds, soft. ABSENT: tenderness Rectal exam: PRESENT: deferred Neurological exam: PRESENT: awake. ABSENT: alert - Sleepy Psychiatric exam: ABSENT: agitated, anxious Results Laboratory Results: 10/10/19 05:17 10/10/19 05:17 10/09/19 05:55 Delcid Catheter Urine Culture - Final Klebsiella(Enterobac)Aerogenes 09/29/19 09/29/19 10/08/19 13:40 13:40 08:32 Creatine Kinase 52 Troponin I 0.019 < 0.012 Impressions: Head CT 09/29/19 13:51 IMPRESSION: MILD CHRONIC CHANGES OF ATROPHY AND MICROVASCULAR ISCHEMIA. NO ACUTE PROCESS. EVIDENCE OF ACUTE STROKE: NO. Chest CT 09/29/19 16:01 IMPRESSION: Cardiomegaly with pulmonary vascular congestion and minimal ground- glass infiltrates likely representing mild interstitial edema. No other significant finding. Abdomen/Pelvis CT 09/29/19 16:04 IMPRESSION: Ascites. Cholelithiasis. Diverticulosis coli. Hip X-Ray 10/05/19 00:00 IMPRESSION: Advanced osteoarthritis. KUB X-Ray 10/06/19 00:00 IMPRESSION: Limited exam secondary to body habitus. Gaseous distended structure stomach. Chest X-Ray 10/06/19 14:36 IMPRESSION: Stable enlarged cardiac silhouette and central vascular congestion. No definitive superimposed airspace disease. Assessment and Plan - Diagnosis (1) Delirium superimposed on dementia Is this a current diagnosis for this admission?: Yes Plan: Resolved with treatment of infection and IV fluids (2) Acute metabolic encephalopathy Is this a current diagnosis for this admission?: Yes Plan: Appears to be back at baseline (3) ELGIN (acute kidney injury) Is this a current diagnosis for this admission?: Yes Plan: Resolved. GFR is now greater than 60. (4) History of arthroplasty of right knee Is this a current diagnosis for this admission?: Yes Plan: Awaiting [facility] placement. (5) Hyperglycemia due to type 2 diabetes mellitus Qualifiers: Diabetes mellitus exterminator helper insulin use: with fpc use Qualified Code(s): E11.65 - Type 2 diabetes mellitus with hyperglycemia; Z79.4 - intermediate school teacher (current) use of insulin Is this a current diagnosis for this admission?: Yes Plan: No changes. Good glucose control. (6) Acute urinary retention Is this a current diagnosis for this admission?: Yes Plan: Most likely secondary to infection. (7) Cardiomyopathy Qualifiers: Cardiomyopathy type: unspecified Qualified Code(s): I42.9 - Cardiomyopathy, unspecified Is this a current diagnosis for this admission?: Yes Plan: Stable on current regimen. No changes (8) Cough Is this a current diagnosis for this admission?: Yes Plan: Resolved (9) Paroxysmal atrial fibrillation Is this a current diagnosis for this admission?: Yes Plan: Well-controlled. Continue current regimen. (10) COPD (chronic obstructive pulmonary disease) Qualifiers: COPD type: chronic bronchitis Is this a current diagnosis for this admission?: Yes Plan: Brio Ellipta and as needed nebulizer (11) UTI (urinary tract infection) Qualifiers: Urinary tract infection type: acute cystitis Hematuria presence: with hematuria Qualified Code(s): N30.01 - Acute cystitis with hematuria Is this a current diagnosis for this admission?: Yes Plan: Currently on cefepime. Complete antibiotic therapy with cefepime. - Time Time Spent with patient: Less than 15 minutes Medications reviewed and adjusted accordingly: Yes Anticipated Discharge Disposition: Alf Facility Anticipated Discharge Timeframe: when bed available
[2019-10-12] MEDS: MELATONIN 3 MG TABLET PO SCH (22:28)
[2019-10-12] MEDS: DABIGATRAN ETEXILATE 150 MG CAPSULE PO SCH (22:40)
[2019-10-12] MEDS: LATANOPROST 0.005% OPH SOLN 2.5 ML OU SCH (22:42)
[2019-10-13] MEDS: LEVOTHYROXINE SODIUM 0.05 MG TABLET PO SCH (05:12)
[2019-10-13] MEDS: DIVALPROEX SODIUM 125 MG CAP.SPRINK PO SCH ×3 (05:12→21:06)
[2019-10-13 05:36] LABS: ANION GAP 8 (5-19); BLOOD UREA NITROGEN 10 mg/dL (7-20); CALCIUM 8.4 mg/dL (8.4-10.2); CARBON DIOXIDE 36 mmol/L (22-30); CHLORIDE 96 mmol/L (98-107); GLUCOSE 132 mg/dL (75-110)
[2019-10-13 05:44] LABS: POTASSIUM 2.9 mmol/L (3.6-5.0)
[2019-10-13] MEDS: POTASSI CL 20 MEQ/50 ML RIDER 20 MEQ/50 ML RTUPB IV SCH ×4 (06:31→16:23)
[2019-10-13] MEDS: INSULIN LISPRO 100 UNIT/ML 3 ML VIAL SUBCUT SCH ×4 (09:00→21:02)
[2019-10-13] MEDS ORDERED: FUROSEMIDE INJ/PF 40 MG/4 ML SDV IV SCH (10:00)
[2019-10-13] MEDS: SERTRALINE HCL 50 MG TABLET PO SCH (11:53)
[2019-10-13] MEDS: BUSPIRONE HCL 10 MG TABLET PO SCH ×2 (11:53→18:14)
[2019-10-13] MEDS: DOCUSATE SODIUM 100 MG CAPSULE PO SCH (11:53)
[2019-10-13] MEDS: PANTOPRAZOLE SODIUM 40 MG TABLET.DR PO SCH (11:53)
[2019-10-13] MEDS: ASPIRIN 81 MG TABLET, ENT COATED PO SCH (11:53)
[2019-10-13] MEDS: CYANOCOBALAMIN (VITAMIN B-12) 1,000 MCG TABLET PO SCH (11:53)
[2019-10-13] MEDS: FAMOTIDINE 20 MG TABLET PO SCH ×2 (11:54→21:05)
[2019-10-13] MEDS: RISPERIDONE 1 MG TABLET PO SCH (11:54)
[2019-10-13] MEDS: METOPROLOL TARTRATE 25 MG TABLET PO SCH ×2 (11:54→21:07)
[2019-10-13] MEDS: SACUBITRIL/VALSARTAN 24 MG/26 MG TABLET PO SCH ×2 (11:56→18:14)
[2019-10-13] MEDS: FLUTICASONE/VILANTEROL 100-25 MCG/DOSE IH SCH (11:56)
[2019-10-13] MEDS ORDERED: POTASSI CL 20 MEQ/NS 1L 1,000 ML IV PRN (11:56)
[2019-10-13] MEDS: DABIGATRAN ETEXILATE 150 MG CAPSULE PO SCH ×2 (11:57→21:05)
--- NOTE | 2019-10-13 12:05 | PDOC PROGRESS REPORT ---
Subjective Progress Note for:: 10/13/19 Subjective:: Sleepy. Was up conversing with the nurse earlier. Consider adjustment of morning medications. Reason For Visit: AMS,ELGIN Physical Exam Vital Signs: Temp Pulse Resp BP Pulse Ox 97.8 F 72 15 142/64 H 93 10/13/19 10:00 10/13/19 08:00 10/13/19 08:00 10/13/19 08:00 10/13/19 08:00 Intake & Output 10/12/19 10/13/19 10/14/19 06:59 06:59 06:59 Intake Total 190 150 50 Output Total 2500 550 Balance -2310 -400 50 Weight 82.6 kg 81.6 kg General appearance: PRESENT: no acute distress, other - Still very sleepy. The nurse reports that she was conversant this morning. Head exam: PRESENT: atraumatic, normocephalic Teeth exam: PRESENT: edentulous Respiratory exam: PRESENT: clear to auscultation molly - Anteriorly, symmetrical, unlabored. ABSENT: rales, rhonchi, tachypnea, wheezes Cardiovascular exam: PRESENT: irregular rhythm. ABSENT: bradycardia, tachycardia GI/Abdominal exam: PRESENT: normal bowel sounds, soft. ABSENT: distended, tenderness Rectal exam: PRESENT: deferred Gentrourinary exam: PRESENT: indwelling catheter Extremities exam: PRESENT: pedal edema, +1 edema, other - Foam dressing on heels. Neurological exam: ABSENT: awake Results Laboratory Results: 10/10/19 05:17 10/13/19 04:44 10/13/19 04:44 Sodium 140.1 Potassium 2.9 L* Chloride 96 L Carbon Dioxide 36 H Anion Gap 8 BUN 10 Creatinine 0.40 L Est GFR ( Amer) > 60 Glucose 132 H Calcium 8.4 Magnesium 1.5 L 09/29/19 09/29/19 10/08/19 13:40 13:40 08:32 Creatine Kinase 52 Troponin I 0.019 < 0.012 Impressions: Head CT 09/29/19 13:51 IMPRESSION: MILD CHRONIC CHANGES OF ATROPHY AND MICROVASCULAR ISCHEMIA. NO ACUTE PROCESS. EVIDENCE OF ACUTE STROKE: NO. Chest CT 09/29/19 16:01 IMPRESSION: Cardiomegaly with pulmonary vascular congestion and minimal ground- glass infiltrates likely representing mild interstitial edema. No other significant finding. Abdomen/Pelvis CT 09/29/19 16:04 IMPRESSION: Ascites. Cholelithiasis. Diverticulosis coli. Hip X-Ray 10/05/19 00:00 IMPRESSION: Advanced osteoarthritis. KUB X-Ray 10/06/19 00:00 IMPRESSION: Limited exam secondary to body habitus. Gaseous distended structure stomach. Chest X-Ray 10/06/19 14:36 IMPRESSION: Stable enlarged cardiac silhouette and central vascular congestion. No definitive superimposed airspace disease. Assessment and Plan - Diagnosis (1) Delirium superimposed on dementia Is this a current diagnosis for this admission?: Yes Plan: Appears to be back at baseline. Sleepiness during the day could be related to the 0.5 mg of Risperdal each morning. Consider decreasing to 0.25 mg and monitor patient. (2) Acute metabolic encephalopathy Is this a current diagnosis for this admission?: Yes Plan: Resolved. Back at baseline. (3) ELGIN (acute kidney injury) Is this a current diagnosis for this admission?: Yes Plan: Resolved. Urine is getting dark. Will adjust IV fluids. We will give saline with potassium as she is hypokalemic. (4) History of arthroplasty of right knee Is this a current diagnosis for this admission?: Yes Plan: Awaiting correction placement. (5) Hyperglycemia due to type 2 diabetes mellitus Qualifiers: Diabetes mellitus custodial insulin use: with custodial use Qualified Code(s): E11.65 - Type 2 diabetes mellitus with hyperglycemia; Z79.4 - terminal gauger supervisor (current) use of insulin Is this a current diagnosis for this admission?: Yes Plan: Reasonable blood control. Continue current regimen. (6) Acute urinary retention Is this a current diagnosis for this admission?: Yes Plan: Resolved with Delcid catheter. Urology as an outpatient. Can trial removal of Delcid after several more days of antibiotic therapy. (7) Cardiomyopathy Qualifiers: Cardiomyopathy type: unspecified Qualified Code(s): I42.9 - Cardiomyopathy, unspecified Is this a current diagnosis for this admission?: Yes Plan: Depressed ejection fraction at approximately 35%. Continue current cardiac medication regimen. (8) Cough Is this a current diagnosis for this admission?: Yes Plan: Resolved (9) Paroxysmal atrial fibrillation Is this a current diagnosis for this admission?: Yes Plan: Well-controlled. Continue current regimen. (10) COPD (chronic obstructive pulmonary disease) Qualifiers: COPD type: chronic bronchitis Is this a current diagnosis for this admission?: Yes Plan: Brio Ellipta and as needed nebulizer (11) UTI (urinary tract infection) Qualifiers: Urinary tract infection type: acute cystitis Hematuria presence: with hematuria Qualified Code(s): N30.01 - Acute cystitis with hematuria Is this a current diagnosis for this admission?: Yes Plan: Currently on cefepime. Complete antibiotic therapy with cefepime. (12) Hypokalemia Is this a current diagnosis for this admission?: Yes Plan: Potassium was quite low today. I will give potassium chloride as an IV rider and then initiate normal saline with potassium on a continuous basis. - Time Time Spent with patient: 15-24 minutes Medications reviewed and adjusted accordingly: Yes Anticipated Discharge Disposition: [facility] Anticipated Discharge Timeframe: when bed available
[2019-10-13] MEDS: CEFEPIME 1 GM/D5W RTU 1 GM/50 ML RTUPB IV SCH ×2 (12:48→21:04)
[2019-10-13] MEDS: ACETAMINOPHEN 325 MG TABLET PO PRN (13:09)
[2019-10-13] MEDS: MELATONIN 3 MG TABLET PO SCH (21:05)
[2019-10-13] MEDS: LATANOPROST 0.005% OPH SOLN 2.5 ML OU SCH (21:15)
[2019-10-14] MEDS: DIVALPROEX SODIUM 125 MG CAP.SPRINK PO SCH ×2 (06:07→14:07)
[2019-10-14] MEDS: LEVOTHYROXINE SODIUM 0.05 MG TABLET PO SCH (06:07)
[2019-10-14] MEDS: INSULIN LISPRO 100 UNIT/ML 3 ML VIAL SUBCUT SCH ×4 (10:33→16:44)
[2019-10-14] MEDS: DABIGATRAN ETEXILATE 150 MG CAPSULE PO SCH (10:39)
[2019-10-14] MEDS: FLUTICASONE/VILANTEROL 100-25 MCG/DOSE IH SCH (10:39)
[2019-10-14] MEDS: CEFEPIME 1 GM/D5W RTU 1 GM/50 ML RTUPB IV SCH (10:39)
[2019-10-14] MEDS: SERTRALINE HCL 50 MG TABLET PO SCH (10:40)
[2019-10-14] MEDS: METOPROLOL TARTRATE 25 MG TABLET PO SCH (10:40)
[2019-10-14] MEDS: ASPIRIN 81 MG TABLET, ENT COATED PO SCH (10:40)
[2019-10-14] MEDS: PANTOPRAZOLE SODIUM 40 MG TABLET.DR PO SCH (10:40)
[2019-10-14] MEDS: CYANOCOBALAMIN (VITAMIN B-12) 1,000 MCG TABLET PO SCH (10:40)
[2019-10-14] MEDS: BUSPIRONE HCL 10 MG TABLET PO SCH (10:40)
[2019-10-14] MEDS: FAMOTIDINE 20 MG TABLET PO SCH (10:40)
[2019-10-14] MEDS: DOCUSATE SODIUM 100 MG CAPSULE PO SCH (10:40)
[2019-10-14] MEDS: RISPERIDONE 1 MG TABLET PO SCH (10:41)
[2019-10-14] MEDS: SACUBITRIL/VALSARTAN 24 MG/26 MG TABLET PO SCH (10:42)
--- NOTE | 2019-10-14 13:21 | PDOC TRANSFER SUMMARY ---
Impression - Admit/DC Date/PCP Admission Date/Primary Care Provider: 09/29/19 16:58 ANDI PINEDA MD Discharge Date: 10/14/19 - Additional Information Discharge Diet: Cardiac, Diabetic Discharge Activity: Activity As Tolerated, Slowly Increase Activity, Supervised Activity Referrals: ANDI PINEDA MD [Primary Care Provider] - Follow up as needed Prescriptions: Fluticasone/Vilanterol [Breo 100-25 Mcg Ellipta 14 Dose/Dpi] 1 inh IH DAILY #1 inhaler Clonidine [Catapres-Tts 1 (0.1 mg/24 Hr) Transderm Patch] 1 each TD Mo@10 #4 patch.tdwk Ciprofloxacin HCl [Cipro 500 mg Tablet] 250 mg PO Q12 #10 tablet Divalproex Sodium [Depakote Sprinkle 125 mg Capsule] 250 mg PO Q8 #90 cap.sprink Sacubitril/Valsartan [Entresto 24 mg/26 mg Tablet] 1 tab PO BID #60 tablet Melatonin [Melatonin 3 mg Tablet] 6 mg PO QHS #60 tablet Risperidone [Risperdal 1 mg Tablet] 0.5 mg PO QAM #30 tablet Home Medications: Albuterol Sulfate [Proair HFA Inhalation Aerosol 8.5 gm MDI] 2 puff IH Q6HP PRN 08/17/17 Aspirin [Ecotrin 81 mg EC Tablet] 81 mg PO DAILY 08/17/17 Bimatoprost [Lumigan 0.01% Oph Soln 2.5 ml/Bottle] 1 drop OU QHS 08/17/17 Carboxymethylcellulose Sodium [Refresh Tears] 1 drop OU DAILYP PRN 08/17/17 Dabigatran Etexilate Mesylate [Pradaxa] 150 mg PO Q12 08/17/17 Ergocalciferol (Vitamin D2) [Drisdol 50,000 unit (1.25MG) Capsule] 50,000 unit PO CLARK@1000 08/17/17 Levothyroxine Sodium [Synthroid 0.05 mg Tablet] 0.05 mg PO Q6AM 08/17/17 Sertraline HCl [Zoloft] 100 mg PO DAILY 08/17/17 Albuterol Sulfate [Ventolin 0.083% Neb 2.5 mg/3 mL Ampul] 1 vial NEB RTTIDP PRN 08/10/20 Buspirone HCl [Buspar 10 mg Tablet] 5 mg PO BID 09/25/19 Cyanocobalamin (Vitamin B-12) [B-12] 1,000 mcg PO DAILY 09/25/19 Docusate Sodium [Colace 100 mg Capsule] 100 mg PO DAILYP PRN 09/25/19 Latanoprost [Xalatan 0.005% Oph Soln 2.5 ml] 1 drop OP QHS 09/25/19 Metoprolol Tartrate [Lopressor 25 mg Tablet] 12.5 mg PO Q12 09/25/19 Pantoprazole Sodium [Protonix [address] Tablet] 40 mg PO QAM 09/25/19 Acetaminophen [Tylenol 325 mg Tablet] 325 mg PO Q4HP PRN tablet 10/14/19 Ciprofloxacin HCl [Cipro 500 mg Tablet] 250 mg PO Q12 #10 tablet 10/14/19 Clonidine [Catapres-Tts 1 (0.1 mg/24 Hr) Transderm Patch] 1 each TD Mo@10 #4 patch.tdwk 10/14/19 Divalproex Sodium [Depakote Sprinkle 125 mg Capsule] 250 mg PO Q8 #90 cap.sprink 10/14/19 Fluticasone/Vilanterol [Breo 100-25 Mcg Ellipta 14 Dose/Dpi] 1 inh IH DAILY #1 inhaler 10/14/19 Melatonin [Melatonin 3 mg Tablet] 6 mg PO QHS #60 tablet 10/14/19 Risperidone [Risperdal 1 mg Tablet] 0.5 mg PO QAM #30 tablet 10/14/19 Sacubitril/Valsartan [Entresto 24 mg/26 mg Tablet] 1 tab PO BID #60 tablet 10/14/19 History of Present Illiness History of Present Illness: Per H&P by Dr. Hager: MOON RIDER is a 83 year old female past medical history of COPD, CAD, A. fib, diabetes, hypothyroidism, arthritis, depression, dementia, status post right knee arthroplasty 4 days prior to admission, as per daughter who is the source of history patient has been more altered since the surgery, has been refusing food and water, and is more confused than usual, at baseline patient has dementia and is alert and oriented x2 however since surgery patient has been more confused and agitated. One day after surgery patient had a mechanical fall did not sustain any trauma, patient also noted to be incontinent since being altered, otherwise patient has not had any fever, chills, nausea, vomiting, diarrhea. Patient has been constipated for the last several days. Hospital Course Hospital Course: (1) Delirium superimposed on dementia Appears to be back at baseline. Secondary to surgical procedure, analgesics, UTI, and hospital admission. Supportive care. (2) Acute metabolic encephalopathy Resolved. Back at baseline. (3) ELGIN (acute kidney injury) Resolved. Encourage p.o. fluids. Recommend follow-up chemistry in 5 to 7 days. (4) History of arthroplasty of right knee Transfer to SNF for short-term rehab. (5) Hyperglycemia due to type 2 diabetes mellitus A1c 6.3%. For a frail, elderly patient, acceptable goal is less than 8.5%. Continue consistent carb diet. (6) Acute urinary retention Resolved with Delcid catheter. Urology as an outpatient. Can trial removal of Delcid after several more days of antibiotic therapy. (7) Cardiomyopathy Depressed ejection fraction at approximately 35%. Patient is discharged on Entresto, clonidine transdermal patch, metoprolol. She is also to take Pradaxa, aspirin, statin therapy. Recommend cardiac/consistent carb diet. Recommend daily weights. Should establish with a wall covering installer for further management within 1 month. (8) Cough Resolved (9) Paroxysmal atrial fibrillation Well-controlled. Continue Pradaxa (10) COPD (chronic obstructive pulmonary disease) Stable and without exacerbation at this time. Brio Ellipta and as needed nebulizer (11) UTI (urinary tract infection) Urinalysis suggest UTI. Ultrasound reveals Klebsiella aerogenes. Patient was initially treated with cefepime; she is transition to p.o. Cipro to complete course of therapy. (12) Hypokalemia Replete. Recommend follow-up chemistries in 5 to 7 days. Physical Exam Vital Signs: Temp Pulse Resp BP Pulse Ox 98.0 F 85 15 147/66 H 96 10/14/19 11:02 10/14/19 11:02 10/14/19 11:02 10/14/19 11:02 10/14/19 11:02 Intake & Output 10/13/19 10/14/19 10/15/19 06:59 06:59 06:59 Intake Total 150 300 Output Total 550 275 Balance -400 25 Weight 81.6 kg 75.9 kg General appearance: PRESENT: no acute distress, cooperative, well-developed, well-nourished Head exam: PRESENT: atraumatic, normocephalic Eye exam: PRESENT: conjunctiva pink, EOMI, PERRLA. ABSENT: scleral icterus Mouth exam: PRESENT: moist, tongue midline Neck exam: ABSENT: carotid bruit, JVD, lymphadenopathy, thyromegaly Respiratory exam: PRESENT: clear to auscultation molly, symmetrical, unlabored. ABSENT: rales, rhonchi, wheezes Cardiovascular exam: PRESENT: irregular rhythm. ABSENT: diastolic murmur, rubs, systolic murmur Pulses: PRESENT: normal dorsalis pedis pul Vascular exam: PRESENT: normal capillary refill GI/Abdominal exam: PRESENT: normal bowel sounds, soft. ABSENT: distended, guarding, mass, organolmegaly, rebound, tenderness Rectal exam: PRESENT: deferred Gentrourinary exam: PRESENT: indwelling catheter Extremities exam: PRESENT: full ROM. ABSENT: calf tenderness, clubbing, pedal edema Neurological exam: PRESENT: alert, awake, oriented to person, CN II-XII grossly intact. ABSENT: motor sensory deficit Psychiatric exam: PRESENT: appropriate affect, normal mood. ABSENT: homicidal ideation, suicidal ideation Skin exam: PRESENT: dry, warm. ABSENT: cyanosis, rash Results Laboratory Results: WBC 9.8 10^3/uL (4.0-10.5) 10/10/19 05:17 RBC 4.08 10^6/uL (3.72-5.28) 10/10/19 05:17 Hgb 11.7 g/dL (12.0-15.5) L 10/10/19 05:17 Hct 36.0 % (36.0-47.0) 10/10/19 05:17 MCV 88 fl (80-97) 10/10/19 05:17 MCH 28.8 pg (27.0-33.4) 10/10/19 05:17 MCHC 32.6 g/dL (32.0-36.0) 10/10/19 05:17 RDW 17.2 % (11.5-14.0) H 10/10/19 05:17 Plt Count 191 10^3/uL (150-450) 10/10/19 05:17 Lymph % (Auto) 14.5 % (13-45) 10/10/19 05:17 Brooks % (Auto) 5.5 % (3-13) 10/10/19 05:17 Eos % (Auto) 0.9 % (0-6) 10/10/19 05:17 Baso % (Auto) 0.7 % (0-2) 10/10/19 05:17 Absolute Neuts (auto) 7.7 10^3/uL (1.7-8.2) 10/10/19 05:17 Absolute Lymphs (auto) 1.4 10^3/uL (0.5-4.7) 10/10/19 05:17 Absolute Monos (auto) 0.5 10^3/uL (0.1-1.4) 10/10/19 05:17 Absolute Eos (auto) 0.1 10^3/uL (0.0-0.6) 10/10/19 05:17 Absolute Basos (auto) 0.1 10^3/uL (0.0-0.2) 10/10/19 05:17 Seg Neutrophils % 78.4 % (42-78) H 10/10/19 05:17 PT 21.0 SEC (11.4-15.4) H 09/30/19 05:37 INR 1.80 09/30/19 05:37 VBG pH 7.30 (7.30-7.42) 09/29/19 13:40 VBG pCO2 51.5 mmHg (35-63) 09/29/19 13:40 VBG HCO3 24.7 mmol/L (20-32) 09/29/19 13:40 VBG Base Excess -2.4 mmol/L 09/29/19 13:40 Sodium 140.1 mmol/L (137-145) 10/13/19 04:44 Potassium 3.8 mmol/L (3.6-5.0) 10/14/19 12:12 Chloride 96 mmol/L (98-107) L 10/13/19 04:44 Carbon Dioxide 36 mmol/L (22-30) H 10/13/19 04:44 Anion Gap 8 (5-19) 10/13/19 04:44 BUN 10 mg/dL (7-20) 10/13/19 04:44 Creatinine 0.40 mg/dL (0.52-1.25) L 10/13/19 04:44 Est GFR ( Amer) > 60 (>60) 10/13/19 04:44 Est GFR (Non-Af Amer) Cancelled 10/09/19 05:54 Est GFR (MDRD) Non-Af > 60 (>60) 10/13/19 04:44 Glucose 132 mg/dL (75-110) H 10/13/19 04:44 POC Glucose 196 mg/dL (70-110) H 10/14/19 11:04 Hemoglobin A1c % 6.3 % (4.7-6.0) H 09/30/19 05:37 Lactic Acid 1.3 mmol/L (0.7-2.1) 09/29/19 13:40 Calcium 8.4 mg/dL (8.4-10.2) 10/13/19 04:44 Phosphorus 3.8 mg/dL (2.5-4.5) 09/30/19 05:37 Magnesium 1.5 mg/dL (1.6-2.3) L 10/13/19 04:44 Total Bilirubin 1.3 mg/dL (0.2-1.3) 09/30/19 05:37 Direct Bilirubin 0.6 mg/dL (0.0-0.4) H 09/30/19 05:37 Neonat Total Bilirubin Not Reportable 09/30/19 05:37 Neonat Direct Bilirubin Not Reportable 09/30/19 05:37 Neonat Indirect Bili Not Reportable 09/30/19 05:37 AST 40 U/L (14-36) H 09/30/19 05:37 ALT 19 U/L (<35) 09/30/19 05:37 Alkaline Phosphatase 77 U/L (38-126) 09/30/19 05:37 Ammonia < 8.7 umol/L (9-33) L 09/29/19 15:04 Creatine Kinase 52 U/L (30-135) 09/29/19 13:40 Troponin I < 0.012 ng/mL 10/08/19 08:32 Total Protein 6.4 g/dL (6.3-8.2) 09/30/19 05:37 Albumin 3.3 g/dL (3.5-5.0) L 09/30/19 05:37 EGFR Cancelled 10/09/19 05:54 TSH 1.18 uIU/mL (0.47-4.68) 10/02/19 06:36 Urine Color RED 10/09/19 05:55 Urine Appearance TURBID 10/09/19 05:55 Urine pH 5.0 (5.0-9.0) 10/09/19 05:55 Ur Specific [place] 1.028 10/09/19 05:55 Urine Protein NEGATIVE mg/dL (NEGATIVE) 10/09/19 05:55 Urine Glucose (UA) NEGATIVE mg/dL (NEGATIVE) 10/09/19 05:55 Urine Ketones 20 mg/dL (NEGATIVE) H 10/09/19 05:55 Urine Blood MODERATE (NEGATIVE) H 10/09/19 05:55 Urine Nitrite POSITIVE (NEGATIVE) H 09/29/19 16:15 Urine Nitrite (Reflex) POSITIVE (NEGATIVE) H 10/09/19 05:55 Urine Bilirubin NEGATIVE (NEGATIVE) 10/09/19 05:55 Urine Urobilinogen NEGATIVE mg/dL (<2.0) 10/09/19 05:55 Ur Leukocyte Esterase LARGE (NEGATIVE) H 09/29/19 16:15 Leukocyte Esterase Rfl TRACE (NEGATIVE) H 10/09/19 05:55 Urine WBC (Auto) 87 /HPF 09/29/19 16:15 Urine RBC (Auto) >182 /HPF 10/09/19 05:55 U Hyaline Cast (Auto) 8 /LPF 10/06/19 12:15 Urine Bacteria (Auto) 3+ /HPF 09/29/19 16:15 Urine WBC (Reflex) > 182 /HPF 10/09/19 05:55 Urine WBC Clumps OCC /HPF 09/29/19 16:15 Squamous Epi Cells Auto 1 /HPF 10/06/19 12:15 Amorphous Sediment Auto TRACE /HPF 09/29/19 16:15 Urine Mucus (Auto) FEW /LPF 10/06/19 12:15 Urine Yeast (Budding) PRESENT /HPF 10/06/19 12:15 Urine Ascorbic Acid 40 (NEGATIVE) H 10/09/19 05:55 COVID-19 Source NASOPHARYNGEAL 10/02/19 13:00 COVID-19 (KIMBERLY) NOT DETECTED 10/02/19 13:00 09/29/19 10/08/19 13:40 08:32 Troponin I 0.019 < 0.012 Impressions: Knee X-Ray 09/29/19 00:00 IMPRESSION: Postsurgical changes with prior total arthroplasty. Soft tissue edema. No acute bony findings. Knee X-Ray 09/29/19 00:00 IMPRESSION: Recent right knee total arthroplasty. Mild soft tissue edema. No other significant findings. Chest X-Ray 09/29/19 13:50 IMPRESSION: Cardiomegaly and vascular congestion. Similar findings were noted on prior study. Head CT 09/29/19 13:51 IMPRESSION: MILD CHRONIC CHANGES OF ATROPHY AND MICROVASCULAR ISCHEMIA. NO ACUTE PROCESS. EVIDENCE OF ACUTE STROKE: NO. Chest CT 09/29/19 16:01 IMPRESSION: Cardiomegaly with pulmonary vascular congestion and minimal ground- glass infiltrates likely representing mild interstitial edema. No other significant finding. Abdomen/Pelvis CT 09/29/19 16:04 IMPRESSION: Ascites. Cholelithiasis. Diverticulosis coli. Hip X-Ray 10/05/19 00:00 IMPRESSION: Advanced osteoarthritis. KUB X-Ray 10/06/19 00:00 IMPRESSION: Limited exam secondary to body habitus. Gaseous distended structure stomach. Chest X-Ray 10/06/19 14:36 IMPRESSION: Stable enlarged cardiac silhouette and central vascular congestion. No definitive superimposed airspace disease. Plan Plan of Treatment: Patient is discharged to [facility]. She should follow-up with her primary care provider within 1 week. Follow-up with urologist in 2 to 4 weeks. Follow-up with wall covering installer within 1 month. Take medications as prescribed. Eat a heart healthy diet. Assistance with meals and p.o. fluids to prevent dehydration. Daily weights. Return to the emergency department as needed for concerning symptoms. Time Spent: Greater than 30 Minutes Stroke Is this a Stroke Patient?: No Acute Heart Failure - Is this a Heart Failure Patient?: Yes Documentation of LVEF assessment?: Yes LVEF: LVEF Less Than or Equal to 35% Anticoagulant Therapy: Yes Discharged on Evidence-Based Beta Blockers: Yes Discharged on ARNI?: Yes Discharged on ARB?: N/A-Discharged on ARNI Discharged on ACEI?: N/A Discharged on ARNI For LVEF <35%, discharged on Aldosterone Antagonist?: N/A (LVEF > or = 35%) Follow-up Appointment scheduled within 7 days?: Yes
[2019-10-14] MEDS: ACETAMINOPHEN 325 MG TABLET PO PRN (15:35)
[2019-10-14 16:05] VITALS: BP 136/58
[2019-10-14] MEDS ORDERED: CIPROFLOXACIN HCL 500 MG TABLET PO SCH (22:00)
== END 2019-10-14 16:59 | DRG 682 ==
LOC: ER 13:22 → EH 16:58 → 4S 18:21
PROVIDERS: ADMIT Internal Medicine; ATTEND Hospitalist
DX: N17.9 Acute kidney failure, unspecified (principal); G92 Toxic encephalopathy; N39.0 Urinary tract infection, site not specified; I42.9 Cardiomyopathy, unspecified; S37.29XA Other injury of bladder, initial encounter; Z96.651 Presence of right artificial knee joint; J44.9 Chronic obstructive pulmonary disease, unspecified; T41.45XA Adverse effect of unspecified anesthetic, initial encounter; I25.10 Atherosclerotic heart disease of native coronary artery without angina pectoris; R41.0 Disorientation, unspecified; I48.0 Paroxysmal atrial fibrillation; E11.65 Type 2 diabetes mellitus with hyperglycemia; M19.90 Unspecified osteoarthritis, unspecified site; E87.6 Hypokalemia; E86.0 Dehydration; E03.9 Hypothyroidism, unspecified; F32.9 Major depressive disorder, single episode, unspecified; B96.1 Klebsiella pneumoniae [K. pneumoniae] as the cause of diseases classified elsewhere; I50.9 Heart failure, unspecified; I11.0 Hypertensive heart disease with heart failure; F03.90 Unspecified dementia, unspecified severity, without behavioral disturbance, psychotic disturbance, mood disturbance, and anxiety; Z90.710 Acquired absence of both cervix and uterus; Z79.4 Long term (current) use of insulin; Z88.0 Allergy status to penicillin; Z79.899 Other long term (current) drug therapy; Z79.51 Long term (current) use of inhaled steroids; Z95.1 Presence of aortocoronary bypass graft; Z79.01 Long term (current) use of anticoagulants; Z20.828 Contact with and (suspected) exposure to other viral communicable diseases; Z78.1 Physical restraint status; K59.00 Constipation, unspecified; X58.XXXA Exposure to other specified factors, initial encounter
CPT/HCPCS: 36415; 51702; 70450; 71046; 71250; 74018; 74176; 80048; 80053; 81001; 82140; 82550; 82803; 82962; 83036; 83605; 83735; 84100; 84132; 84443; 84484; 85025; 85610; 87040; 87086; 87088; 87186; 87635; 93005; 93010; 93306; 94640; 96360; 99285; C9803; J0610; J0690; J0692; J0696; J1630; J1644; J1815; J1940; J2060; J2270; J2405; J3480; J3490; J7030; J7042; J7120

== ENCOUNTER → 2020-01-30 | Outpatient (CLI) | payer MEDICAID, MEDICARE ==
--- NOTE | 2020-01-30 16:09 | RADIOLOGY REPORT (SQ) ---
EXAM DESCRIPTION: ARTERIAL LOWER EXTREM BILAT IMAGES COMPLETED DATE/TIME: 01/30/2020 3:25 pm REASON FOR STUDY: RLE ULCER L97.212 NON-PRESSURE CHRONIC ULCER OF RIGHT CALF W FAT LAYER COMPARISON: None. TECHNIQUE: Dynamic and static fontenot scale and color images acquired of the lower extremity arteries. Additional selected spectral images recorded. LIMITATIONS: Unable to obtain ABIs. FINDINGS: RIGHT LEG: INFLOW ARTERIES: Not imaged. FEMORAL ARTERIES:Multiphasic waveforms. No significant stenosis. POPLITEAL ARTERY:Multiphasic waveforms. No significant stenosis. PATENT TIBIOPERONEAL TRUNK AND 3 VESSEL RUNOFF: Two-vessel runoff. Peroneal artery is not visualized . OTHER: No other significant finding. LEFT LEG: INFLOW ARTERIES: Not imaged. FEMORAL ARTERIES:Multiphasic waveforms. Elevated velocity distal SFA 4.0 m/sec. POPLITEAL ARTERY:Biphasic waveforms. No significant stenosis. PATENT TIBIOPERONEAL TRUNK AND 3 VESSEL RUNOFF: Three-vessel runoff with monophasic waveforms. Occlu ded distal posterior tibial artery. OTHER: No other significant finding. IMPRESSION: Right: Small vessel disease. No significant stenosis above the knee. Left: Small vessel disease. Estimated 50- 75% stenosis distal SFA. TECHNICAL DOCUMENTATION: JOB ID: [id number] [employer]- All Rights Reserved Reading location - IP/workstation name: [email or web address]
--- NOTE | 2020-01-30 16:09 | RADIOLOGY REPORT (SQ) ---
EXAM DESCRIPTION: PHYSIO ARTERIAL LTD COMPLETE DATE/TIME: 01/30/2020 3:25 pm REASON FOR STUDY: RLE ULCER L97.212 NON-PRESSURE CHRONIC ULCER OF RIGHT CALF W FAT LAYER FINDINGS: Please see combined report for performance of procedure and radiologic supervision and int erpretation. IMPRESSION: Please see combined report for performance of procedure and radiologic supervision and i nterpretation. Reading location - IP/workstation name: [email or web address]
== END ==
LOC: SP 10:30
PROVIDERS: ATTEND Nurse Practitioner Family
DX: L97.212 Non-pressure chronic ulcer of right calf with fat layer exposed (principal)
CPT/HCPCS: 93922; 93925